=== PATIENT | female | born 1965 | race Caucasian/White ===

== ENCOUNTER 2019-12-10 11:48 | Outpatient (CLI) | payer MEDICARE, BC, SELFPAY ==
--- NOTE | 2019-12-10 | XR_ITS ---
WS: [id number] CERVICAL SPINE 5 VIEWS HISTORY: CERVICALGIA COMPARISON: None available. TECHNIQUE: AP, oblique and lateral radiographs. Straightening of the normal cervical lordosis. Anterior cervical fusion at C4-5. Disc space is well p reserved. Mild disc space narrowing at C5-6. No fractures. Very mild narrowing of the foramina on the LEFT at C4-5 and C5-6. Odontoid is intact. Lateral masses are aligned. XR/XR cervical spine 4-5V [id number] IMPRESSION: Uncomplicated anterior cervical fusion hardware at C4-5. Mild degenerative disc disease at C5-6.
== END 2019-12-10 11:49 | disposition home or self-care (01) ==
LOC: RAD 11:55
PROVIDERS: PCP Nurse Practitioner; Visit Provider Nurse Practitioner
DX: M43.22 Fusion of spine, cervical region (principal); M50.322 Other cervical disc degeneration at C5-C6 level
CPT/HCPCS: 72050

== ENCOUNTER 2020-01-28 08:33 | Outpatient (CLI) | payer MEDICARE, BC, SELFPAY ==
--- NOTE | 2020-01-28 08:41 | MM_ITS ---
WS: [id number] Bilateral screening digital mammogram, 01/28/2020 Clinical Data: SCREENING Comparison: 10/10/2017, 07/06/2016, Findings: The breast parenchymal pattern shows fat replacement. No spiculated masses or clustered calcification s are seen. There are no secondary signs of carcinoma. MM/[place] [id number] Impression: 1. Negative bilateral mammogram unchanged. 2. Recommend annual screening mammograms. BIRADS: 1-Negative FOLLOW UP: 1 Year Follow-up The CAD packing checker was used.
== END 2020-01-28 08:34 | disposition home or self-care (01) ==
LOC: RADSHAW 08:40
PROVIDERS: PCP Nurse Practitioner; Visit Provider Nurse Practitioner
DX: Z12.31 Encounter for screening mammogram for malignant neoplasm of breast (principal)
CPT/HCPCS: 77067

== ENCOUNTER 2020-06-08 10:24 | Outpatient (CLI) | payer MEDICARE, BC, SELFPAY ==
--- NOTE | 2020-06-08 10:44 | US_ITS ---
WS: [id number] Complete ABDOMINAL ULTRASOUND HISTORY: LEFT UPPER QUADRANT PAIN COMPARISON: None available. Liver: 15.1 cm in length. Liver is normal size and echogenicity with no mass or intrahepatic dilatati on. Gallbladder: Prior cholecystectomy. Pancreas: Normal size and echogenicity. CBD: 0.2 cm. Right kidney: 9.3 cm x 4.2 cm x 3.7 cm. Normal size kidney. No hydronephrosis or cystic mass. Exophy tic hypoechoic mass from the lower pole measuring 1.9 x 2.0 x 1.3 cm. Left kidney: 9.5 cm x 3.8 cm x 4.4 cm. No mass, cortical thickening or hydronephrosis. Spleen: Normal size and echogenicity. Abdominal aorta and IVC are within normal limits. No ascites. US/US abdomen complete* [id number] IMPRESSION: 1. Prior cholecystectomy. 2. Indeterminate solid mass lower pole RIGHT kidney with a maximum diameter of 2.0 cm. Recommend follow-up renal mass CT protocol.
--- NOTE | 2020-06-08 11:23 | XR_ITS ---
WS: [id number] LEFT SHOULDER: 3 VIEW(S) TECHNIQUE: Internal and external rotation with Y view. HISTORY: LEFT SHOULDER PAIN COMPARISON: None available. No fracture or dislocation or soft tissue abnormality. Mild AC joint narrowing and arthritis. XR/XR shoulder LT min 2V* [id number] IMPRESSION: Mild AC joint arthritis.
--- NOTE | 2020-06-08 11:23 | XR_ITS ---
WS: [id number] LEFT RIBS, MULTIPLE VIEWS WITH PA CHEST HISTORY: LEFT SIDED CHEST PAIN COMPARISON: None available. Lungs and mediastinum: Lungs are clear and well aerated. No contusion, pneumonia or pneumothorax. Ribs: No rib fractures or bone destruction identified. XR/XR ribs LT mn 3V w CXR1V [id number] IMPRESSION: No rib fractures are identified.
== END 2020-06-08 10:25 | disposition home or self-care (01) ==
LOC: RAD 10:29
PROVIDERS: PCP Nurse Practitioner; Visit Provider Nurse Practitioner
DX: R10.12 Left upper quadrant pain (principal); R07.89 Other chest pain; Z68.29 Body mass index [BMI] 29.0-29.9, adult; M13.812 Other specified arthritis, left shoulder; Z90.49 Acquired absence of other specified parts of digestive tract; N28.89 Other specified disorders of kidney and ureter
CPT/HCPCS: 71101; 73030; 76700

== ENCOUNTER 2020-06-22 13:24 | Outpatient (CLI) | payer MEDICARE, BC, SELFPAY ==
--- NOTE | 2020-06-22 13:32 | CT_ITS ---
WS: [id number] CT ABDOMEN PELVIS TECHNIQUE: Contrast-enhanced CT of the abdomen and pelvis with coronal and sagittal reformatted image s. CLINICAL INFORMATION: OTHER SPECIFIED DISORDERS OF KIDNEY AND URETER COMPARISON: Ultrasound June 08, 2020 DLP: 1102.[address] scans at [facility] use at least one of these dose optimization techniques: automat ed exposure control; mA and/or kV adjustment per patient size (includes targeted exams where dose is matched to clinical indication); or iterative reconstruction. FINDINGS: Diffuse fatty infiltration of the liver. Cholecystectomy clips. Postoperative changes gastric bypass. No significant hiatal hernia. Lung bases are well aerated. Adrenal glands are normal. Normal renal p arenchymal enhancement. No hydronephrosis. Incidental tiny bilateral renal cysts. No mass lesion mynor esponding to the right renal findings on recent ultrasound. Normal caliber abdominal aorta. Aortic calcification. Normal caliber small and large bowel. No evide nce of high-grade small or large bowel obstruction. Normal appendix in right lower quadrant. Normal r enal parenchymal enhancement. Normal caliber abdominal aorta. No free fluid in the pelvis. Fat-contai juhi umbilical hernia. CT/CT abdomen pelvis w con* [id number] IMPRESSION: 1. Diffuse fatty infiltration of the liver. Cholecystectomy clips. 2. Tiny incidental bilateral renal cysts. No evidence of renal mass to corresp ond to the ultrasound findings. 3. Normal renal parenchymal enhancement. No hydronephrosis. 4. Prior postoperative gastric bypass. 5. Normal caliber abdominal aorta. 6. No evidence of small or large bowel obstruction. 7. No free fluid in the abdomen or pelvis. 8. No other significant findings.
[2020-06-22] MEDS: iohexol 300 mg/mL 100 mL Btl IV (14:02)
== END 2020-06-22 13:25 | disposition home or self-care (01) ==
LOC: RADWPI 13:30
PROVIDERS: PCP Nurse Practitioner; Visit Provider Nurse Practitioner
DX: N28.89 Other specified disorders of kidney and ureter (principal); Z98.84 Bariatric surgery status; N28.1 Cyst of kidney, acquired; K76.0 Fatty (change of) liver, not elsewhere classified
CPT/HCPCS: 74177; Q9967

== ENCOUNTER 2020-12-02 10:35 | Emergency (ER) | payer MEDICARE, SELFPAY ==
[2020-12-02 11:03] VITALS: BP 126/85; PULSE 76; RESP 15; TEMP 36.2; O2SAT 99; BMI 29.7
--- NOTE | 2020-12-02 11:07 | XRR_ITS ---
PROCEDURE INFORMATION: Exam: XR Right Foot Exam date and time: 12/02/2020 11:08 AM Age: 55 years old Clinical indication: Pain and injury or trauma; Other: Dog ran over her; Blunt trauma; Foot; Right; Additional info: Pain, injury TECHNIQUE: Imaging protocol: XR Right foot. Views: 3 or more views. COMPARISON: No relevant prior studies available. FINDINGS: Bones/joints: There are multiple fractures. There is a transverse fracture through the base of the 2nd metatarsal bone. A comminuted fracture is present through the proximal 3rd metatarsal bone. There is an oblique comminuted fracture through the distal neck of the 4th metatarsal bone which is displaced laterally by about 6 mm. Soft tissues: Normal. XR/XR foot RT min 3V* [id number] IMPRESSION: Multiple fractures of the base of the 3rd and 4th metatarsal bones and distal neck of the 4th metatarsal bone.
--- NOTE | 2020-12-02 11:21 | ED_ITS ---
HPI - Extremity Problem General: Chief complaint: Extremity Injury, Lower Stated complaint: RIGHT FOOT PAIN Time Seen by Provider: 12/02/20 11:06 History of Present Illness: HPI Narrative: Patient states she was walking down a hill this morning and large dogs hit her from behind and that she felt pain to her right foot she is not sure what happened but she is unable to bear weight now on right foot MD Complaint: extremity pain Onset (ago): minute(s) Pain Consistency: constant Location: right and lower extremity Severity scale (1-10): 10 Quality: aching Relieving factors: immobilization Exacerbating factors: weight bearing Associated symptoms: Reports no associated symptoms; Deny chest pain, fever(s) or rash Review of Systems Const: Denies: fever(s), chills or body aches Eyes: Denies: change in vision or blurry vision ENMT: Denies: throat pain or nasal congestion Card: Denies: chest pain or dyspnea on exertion Resp: Denies: dyspnea, productive cough or non-productive cough GI: Denies: abdominal pain, nausea or vomiting Musc: Reports: extremity pain (Right foot) Skin/Breast: Denies: rash Neuro: Denies: headache(s) Psych: Denies: anxiety or depression Miguel/Lymph: Denies: easy bruising Physical Exam Const: COMMON NORMALS: no acute distress, average body habitus and patient oriented x3 HENMT: COMMON NORMALS: normocephalic HEAD & SCALP: normal to inspection and normocephalic FACE & SINUS: normal facial exam Eye: COMMON NORMALS: conjunctivae normal GENERAL EYE: appearance normal, both eyes and all related structures CONJUNCTIVA: Yes conjunctivae normal Neck/C-Spine: COMMON NORMALS: no JVD Chest: COMMONS NORMALS: normal inspection of the chest Resp: COMMON NORMALS: normal respiratory effort and clear to auscultation bilaterally AUSCULTATION: clear to auscultation bilaterally Cardio: COMMON NORMALS: no JVD, regular rate and regular rhythm RATE: regular rate RHYTHM: regular rhythm GI: COMMON NORMALS: Normal to inspection, nondistended, normoactive bowel sounds present Extremity: RIGHT LOWER EXTREMITY: Yes foot & digits (Painful throughout the foot specially on the arch and the forefoot midsecti) Neuro: COMMON NORMALS: patient oriented x3 Course Vital Signs: Vital signs: Vital Signs Temperature 97.1 F L 12/02/20 11:03 Pulse Rate 76 12/02/20 11:03 Respiratory Rate 15 12/02/20 11:03 Blood Pressure 126/85 12/02/20 11:03 Pulse Oximetry 99 12/02/20 11:03 MDM - Extremity (Nontraumatic) MDM Narrative: Medical decision making narrative: I spoke with Dr. Josue via the phone and reviewed x-ray with him as he looks to x-ray. Discussed treatment. He said that most likely Dr. Funes would take care of this. Dr. uFnes is not on-call today I reviewed the board after talk with Dr. Josue spoke with Dr. Mcgowan who recommend we go ahead and make follow-up ointment Dr. Josue who can transfer patient over Dr. Funes if he feels that is appropriate. Patient was instructed to follow-up with Dr. Josue's office wear splint use crutches take pain medication as directed. Nonweightbearing.. Coding Level of Care Code ED Wellness Instructor for Zoey Faust Exam Comprehensive
[2020-12-02] MEDS: HYDROcodone-acetaminophen 5-325 mg Tablet 1 TAB PO (11:37)
[2020-12-02 12:06] VITALS: RESP 15
--- NOTE | 2020-12-02 13:56 | DCPLANNER ---
utility manager had message to schedule a follow up appointment for patient with ortho for a foot fracture. utility manager called the ortho clinic, spoke with Mady, gave clinic patients information. utility manager was told that patients information would be printed and reviewed. Clinic will call patient with appointment information.
--- NOTE | 2020-12-03 14:48 | DCPLANNER ---
Patient has a follow up appointment scheduled for 12.08.[address] Miranda at ortho. Clinic will call patient with appointment information.
--- NOTE | 2020-12-30 16:55 | DCPLANNER ---
Patient had a follow up appointment scheduled for 12.08.20 with ortho - patient did attend appointment.
== END 2020-12-02 12:37 | disposition home or self-care (01) ==
PROVIDERS: Emergency Provider Nurse Practitioner Family; PCP Nurse Practitioner
DX: M79.671 Pain in right foot (principal)
CPT/HCPCS: 29515; 73630; 99283; E0114

== ENCOUNTER 2020-12-08 14:58 | Outpatient (CLI) | payer MEDICARE, BC, SELFPAY | END 2020-12-08 14:59 | disposition home or self-care (01) | LOC: SPT 15:00 | PROVIDERS: PCP Nurse Practitioner; Visit Provider Podiatrist Foot & Ankle Surgery | DX: Z46.89 Encounter for fitting and adjustment of other specified devices (principal); T07.XXXD Unspecified multiple injuries, subsequent encounter; X58.XXXD Exposure to other specified factors, subsequent encounter | CPT/HCPCS: 73630; L4361 ==

== ENCOUNTER → 2020-12-23 14:17 | Outpatient (BNVA) | payer MEDICARE, BC, SELFPAY | PROVIDERS: PCP Nurse Practitioner; Visit Provider Podiatrist Foot & Ankle Surgery | DX: S92.334D Nondisplaced fracture of third metatarsal bone, right foot, subsequent encounter for fracture with routine healing (principal); S92.342D Displaced fracture of fourth metatarsal bone, left foot, subsequent encounter for fracture with routine healing; S92.324D Nondisplaced fracture of second metatarsal bone, right foot, subsequent encounter for fracture with routine healing; S92.301D Fracture of unspecified metatarsal bone(s), right foot, subsequent encounter for fracture with routine healing; S92.341D Displaced fracture of fourth metatarsal bone, right foot, subsequent encounter for fracture with routine healing | CPT/HCPCS: 73630 ==

== ENCOUNTER → 2021-01-10 11:07 | Outpatient (BNVA) | payer MEDICARE, BC, SELFPAY | PROVIDERS: PCP Nurse Practitioner; Visit Provider Podiatrist Foot & Ankle Surgery | DX: M79.673 Pain in unspecified foot (principal); S92.301D Fracture of unspecified metatarsal bone(s), right foot, subsequent encounter for fracture with routine healing; S92.324D Nondisplaced fracture of second metatarsal bone, right foot, subsequent encounter for fracture with routine healing; S92.334D Nondisplaced fracture of third metatarsal bone, right foot, subsequent encounter for fracture with routine healing; S92.341D Displaced fracture of fourth metatarsal bone, right foot, subsequent encounter for fracture with routine healing; X58.XXXD Exposure to other specified factors, subsequent encounter | CPT/HCPCS: 73630 ==

== ENCOUNTER → 2021-02-03 09:43 | Outpatient (BNVA) | payer MEDICARE, BC, SELFPAY | PROVIDERS: PCP Nurse Practitioner; Visit Provider Podiatrist Foot & Ankle Surgery | DX: S92.334D Nondisplaced fracture of third metatarsal bone, right foot, subsequent encounter for fracture with routine healing (principal); S92.324D Nondisplaced fracture of second metatarsal bone, right foot, subsequent encounter for fracture with routine healing; S92.301D Fracture of unspecified metatarsal bone(s), right foot, subsequent encounter for fracture with routine healing; M79.673 Pain in unspecified foot; S92.341D Displaced fracture of fourth metatarsal bone, right foot, subsequent encounter for fracture with routine healing; X58.XXXD Exposure to other specified factors, subsequent encounter | CPT/HCPCS: 73630 ==

== ENCOUNTER → 2021-03-02 09:00 | Outpatient (BNVA) | payer MEDICARE, BC, SELFPAY | PROVIDERS: PCP Nurse Practitioner; Visit Provider Podiatrist Foot & Ankle Surgery | DX: S92.334D Nondisplaced fracture of third metatarsal bone, right foot, subsequent encounter for fracture with routine healing (principal); S92.324D Nondisplaced fracture of second metatarsal bone, right foot, subsequent encounter for fracture with routine healing; S92.301D Fracture of unspecified metatarsal bone(s), right foot, subsequent encounter for fracture with routine healing; S92.341D Displaced fracture of fourth metatarsal bone, right foot, subsequent encounter for fracture with routine healing; X58.XXXD Exposure to other specified factors, subsequent encounter | CPT/HCPCS: 73630 ==

== ENCOUNTER 2021-08-30 16:33 | Emergency (ER) | payer MEDICARE, BC, SELFPAY ==
[2021-08-30 16:46] VITALS: BMI 24.9
[2021-08-30 16:50] VITALS: BP 123/78; PULSE 73; RESP 14; TEMP 36.5; O2SAT 99
--- NOTE | 2021-08-30 17:19 | XRR_ITS ---
PROCEDURE INFORMATION: Exam: XR Right Foot Exam date and time: 08/30/2021 5:19 PM Age: 56 years old Clinical indication: Injury or trauma; Other: Horse stepped on foot; Crushing; Right; Additional info: Injury, crush TECHNIQUE: Imaging protocol: XR Right foot. Views: 3 or more views. COMPARISON: CR XR foot RT min 3V* [id number] 03/02/2021 9:07 AM FINDINGS: Bones/joints: Normal. Soft tissues: Normal. XR/XR foot RT min 3V* [id number] IMPRESSION: No acute findings.
--- NOTE | 2021-08-30 17:41 | W.ED.EXTPRO ---
HPI - Extremity Problem General: Chief complaint: Extremity Injury, Lower Stated complaint: Rt Foot injury horse stepped on it Time Seen by Provider: 08/30/21 17:40 History of Present Illness: A 56-year-old female comes in with injury to the right foot. Patient reports that she was working with her horse and that stepped on the lateral part of her right foot and middle toe. Patient does have a history of previous fracture to the foot. Patient appears well. Patient reports tetanus is up-to-date. Patient is concerned for fracture of the foot. Patient did have a small abrasion to the toe. Complaint: extremity pain Onset (ago): hour(s) Pain Consistency: constant Location: right and lower extremity (Right foot) Quality: aching Relieving factors: rest Exacerbating factors: weight bearing Associated symptoms: Reports no associated symptoms Review of Systems General: Reports: 10 or more systems reviewed and unremarkable except in HPI and below Musc: Reports: extremity pain (Right foot injury) REPLACED BY [facility] ED PFSH: Medical History Depression Insomnia Seizures Social History Smoking and tobacco status: former smoker Quit status (tobacco): has quit using tobacco Second hand smoke exposure: No Smoking risk assessment/counseling performed?: Yes Alcohol intake: current Alcohol intake frequency: 0-2 Drinks per Day Alcohol type: wine Desire information about alcohol rehabilitation?: No Counseling given: Yes Desire information about substance/drug rehabilitation?: No Counseling given: Yes Physical Exam Const: COMMON NORMALS: alert HENMT: COMMON NORMALS: atraumatic HEAD & SCALP: atraumatic Neck/C-Spine: COMMON NORMALS: full ROM Resp: COMMON NORMALS: normal respiratory effort Cardio: COMMON NORMALS: regular rate and regular rhythm RATE: regular rate RHYTHM: regular rhythm Extremity: RIGHT LOWER EXTREMITY: Yes foot & digits (Swelling noted to the fifth digit with ecchymosis and a small abrasion) Right foot and digits: Yes inspection, Yes palpation, Yes ROM, Yes neurovascular exam and Yes tendon exam Neuro: SENSORIUM/ORIENTATION: Yes alert Psych: COMMON NORMALS: cooperative Skin: WOUNDS: Yes wounds noted (Superficial abrasion right little toe) Course Vital Signs: Vital signs: Vital Signs Temperature 97.7 F 02/15/22 16:50 Pulse Rate 73 08/30/21 16:50 Respiratory Rate 14 08/30/21 16:50 Blood Pressure 123/78 08/30/21 16:50 Pulse Oximetry 99 08/30/21 16:50 MDM - Extremity (Nontraumatic) Medical Decision Making 56-year-old female comes with injury to the foot. On exam patient has some swelling and ecchymosis to the right fifth digit and lateral foot. There is a superficial abrasion to the right little toe. Patient has good range of motion of the foot and toe. Pulses are intact. Differential diagnosis includes fracture, contusion, sprain. X-ray noted no fractures per radiologist. Reviewed exam of contusion of the foot. Patient was recommended to elevate foot, use acetaminophen or ibuprofen to control pain, use hydrocodone for breakthrough pain. Patient's foot was placed in elastic bandage and a postop orthopedic shoe for support and comfort. Follow up with primary care or orthopedist of choice. Patient reported understanding agreed to plan. Lab Data Radiology Impressions Foot X-Ray 08/30/21 17:19 IMPRESSION: No acute findings. Discharge Plan Discharge Patient Disposition: Home Clinical Impression: Contusion of foot including toes Qualifiers: Encounter type: initial encounter Laterality: right Qualified Code(s): S90.31XA - Contusion of right foot, initial encounter Condition: Stable Prescriptions: Continued hydrocodone-acetaminophen 5-325 mg tablet 1 tab PO Q6H PRN (Reason: pain) 3 Days Qty: 10 0RF No Action topiramate [Topamax] 50 mg tablet 50 mg PO BID 0RF zolpidem 10 mg tablet PO 0RF bupropion HCl [Wellbutrin SR] 100 mg tablet sustained-release 12 hr 100 mg PO DAILY 0RF naproxen 500 mg tablet 500 mg PO BID 30 Days Qty: 60 0RF meloxicam 15 mg tablet See Rx Instructions .ROUTE .COMPLEX Qty: 30 1RF Dose Instruction: TAKE 1 TABLET BY MOUTH EVERY DAY Rx Instructions: TAKE 1 TABLET BY MOUTH EVERY DAY Discharge Orders: Discharge ED (Routine); Ordered 08/30/21 Ordered By: Lukas Shen Referrals: Shanae Guerrero NP [Primary Care Provider] - Discharge Diet: Usual diet Discharge Activity: Increase activity as tolerated Patient Instructions: Foot Contusion (ED), Opioid Safety Activity Restrictions/Additional Instructions: Elevate foot. Ice to the area to help with pain. Wear an elastic bandage to help prevent increased swelling and for comfort. Use a good supportive shoe or the postop shoe for further foot support. Drink plenty of water with medication. Use acetaminophen ibuprofen to control pain. Use hydrocodone for breakthrough pain. Follow-up with primary care for further evaluation and treatment as needed. Coding Level of Care Code ED Office Assistant Receptionist for Chg Fwd History Problem Focused Exam Problem Focused Medical Decision Making Low Complexity Time Spent (min) 20
== END 2021-08-30 18:52 | disposition home or self-care (01) ==
PROVIDERS: Emergency Provider Nurse Practitioner Family; PCP Nurse Practitioner
DX: S90.31XA Contusion of right foot, initial encounter (principal); Z87.891 Personal history of nicotine dependence; W55.19XA Other contact with horse, initial encounter
CPT/HCPCS: 73630; 99282; 99291; 99292

== ENCOUNTER → 2021-09-13 10:10 | Outpatient (BNVA) | payer MEDICARE, BC, SELFPAY | PROVIDERS: PCP Nurse Practitioner; Visit Provider Podiatrist Foot & Ankle Surgery | DX: M79.671 Pain in right foot (principal) | CPT/HCPCS: 73630 ==

== ENCOUNTER 2021-11-30 09:10 | Outpatient (CLI) | payer MEDICARE, BC, SELFPAY ==
--- NOTE | 2021-11-30 09:20 | MM_ITS ---
WS: [id number] Bilateral screening 3D tomosynthesis digital mammogram, 11/30/2021 Clinical Data: SCREENING Comparison: 01/28/2020, 10/10/2017, 07/10/2016. Findings: The breast parenchymal pattern shows fat replacement. No spiculated masses or clustered calcification s are seen. There are no secondary signs of carcinoma. MM/[place] [id number] Impression: 1. Negative bilateral mammogram unchanged. 2. Recommend annual screening mammograms. BIRADS: 1-Negative FOLLOW UP: 1 Year Follow-up The CAD order checker was used.
== END 2021-11-30 09:11 | disposition home or self-care (01) ==
LOC: RAD 09:14
PROVIDERS: PCP Nurse Practitioner; Visit Provider Nurse Practitioner
DX: Z12.31 Encounter for screening mammogram for malignant neoplasm of breast (principal)
CPT/HCPCS: 77063; 77067

== ENCOUNTER 2021-11-30 09:22 | Outpatient (CLI) | payer MEDICARE, BC, SELFPAY ==
--- NOTE | 2021-11-30 10:00 | US_ITS ---
WS: [id number] THYROID ULTRASOUND HISTORY: ENLARGED LYMPH NODES COMPARISON: None available. Right lobe: 1.2 cm x 1.5 cm x 4.0 cm (w x ap x l). Volume: 3.6 cm3. Normal size and echotexture. No significant are dominant nodules are present. Left lobe: 1.0 cm x 1.3 cm x 3.4 cm (w x ap x l). Volume: 2.4 cm3. Normal size and echotexture. No significant or dominant nodules are present. Isthmus: 0.2 cm. Palpable nodule in the LEFT neck corresponds to a benign-appearing lymph node measuring 5 x 4 x 5 mm. There are several small but benign-appearing lymph nodes along the LEFT cervical chain. US/US thyroid [id number] IMPRESSION: Normal thyroid ultrasound. Palpable nodule in the LEFT neck corresponds to benign-appearing lymph nodes.
== END 2021-11-30 09:23 | disposition home or self-care (01) ==
LOC: RAD 09:28
PROVIDERS: PCP Nurse Practitioner; Visit Provider Nurse Practitioner
DX: R59.9 Enlarged lymph nodes, unspecified (principal)
CPT/HCPCS: 76536

== ENCOUNTER 2022-05-17 11:10 | Emergency (ER) | payer MEDICARE, BC, SELFPAY ==
[2022-05-17] VITALS (7 sets, daily range): BP systolic 91–127; BP diastolic 56–79; PULSE 62–68; RESP 16–20; TEMP 36.8; O2SAT 99–100; BMI 23.6
--- NOTE | 2022-05-17 11:41 | CT_ITS ---
WS: [id number] CT THORACIC SPINE TECHNIQUE: Noncontrast CT of the thoracic spine with coronal and sagittal reformatted images. CLINICAL INFORMATION: Bucked off horse-mid back pain COMPARISON: None. DLP: 379.[address] scans at [facility] use at least one of these dose optimization techniques: automated e xposure control; mA and/or kV adjustment per patient size (includes targeted exams where dose is matc hed to clinical indication); or iterative reconstruction. FINDINGS:Slightly displaced spinous process fractures at T4-T8. No other visualized fractures. Mild thoracic curve. Mild thoracic kyphosis. No acute compression fractures. Mild hypertrophic change s in the mid thoracic spine. No high-grade central canal narrowing. Visualized lungs are well aerated. CT/CT thoracic spin wo con* [id number] IMPRESSION: Slightly displaced spinous process fractures at T4-T8. No other visualized frac tures. Notified LALA Menendez at 05/17/2022 1:30 PM.
--- NOTE | 2022-05-17 11:41 | XRR_ITS ---
PROCEDURE INFORMATION: Exam: XR Chest Exam date and time: 05/17/2022 11:47 AM Age: 57 years old Clinical indication: Injury or trauma; Blunt trauma (contusions or hematomas); Injury date: 05/17/22; Injury details: Bucked off horse. RT hip and lower back pain TECHNIQUE: Imaging protocol: Radiologic exam of the chest. Views: 1 view. Total images: 2 COMPARISON: CR XR ribs LT mn 3V w CXR1V [id number] 06/08/2020 11:50 AM FINDINGS: Lungs: Unremarkable. No consolidation. Pleural spaces: Unremarkable. No pleural effusion. No pneumothorax. Heart/Mediastinum: Unremarkable. No cardiomegaly. Bones/joints: Osseous structures are unchanged from the prior exam. XR/XR chest 1V portable [id number] IMPRESSION: No acute cardiopulmonary process.
--- NOTE | 2022-05-17 11:41 | XRR_ITS ---
PROCEDURE INFORMATION: Exam: XR Right Hip Exam date and time: 05/17/2022 11:48 AM Age: 57 years old Clinical indication: Injury or trauma; Other: Bucked off horse; Blunt trauma (contusions or hematomas); Right; Hip; Additional info: Bucked off horse with right hip pain TECHNIQUE: Imaging protocol: Radiologic exam of the Right hip. Views: 1 view hip with pelvis when performed. Total images: 1 COMPARISON: CT abdomen pelvis w con* [id number] 06/22/2020 1:59 PM FINDINGS: Bones/joints: Unremarkable. No acute fracture. Soft tissues: Unremarkable. XR/XR hip RT 2-3V wo/w pel* [id number] IMPRESSION: No acute findings.
--- NOTE | 2022-05-17 11:41 | CT_ITS ---
WS: [id number] CT HEAD TECHNIQUE: Noncontrast CT of the head obtained from the skullbase to the vertex. CLINICAL INFORMATION: Bucked off horse and hit head-positive LOC COMPARISON: None. DLP: 1230.[address] scans at [facility] use at least one of these dose optimization techniques: automated e xposure control; mA and/or kV adjustment per patient size (includes targeted exams where dose is matc hed to clinical indication); or iterative reconstruction. FINDINGS: No evidence of intracranial hemorrhage or mass effect. Ventricular system and basal cisterns are anderson nt. No extra-axial fluid collections. No evidence of mass or mass effect. Normal chang-white different iation. Paranasal sinuses and mastoid air cells are well aerated. .Normal visualized soft tissues. CT/CT head wo con* [id number] IMPRESSION: 1. No evidence of intracranial hemorrhage or mass effect. 2. No acute intracranial findings.
--- NOTE | 2022-05-17 11:41 | CT_ITS ---
WS: [id number] CT CERVICAL TRAUMA TECHNIQUE: Noncontrast CT of the cervical spine with coronal and sagittal reformatted images. CLINICAL INFORMATION: Bucked off horse-lower cervical spine pain COMPARISON: None. DLP: 1230.[address] scans at [facility] use at least one of these dose optimization techniques: automated e xposure control; mA and/or kV adjustment per patient size (includes targeted exams where dose is matc hed to clinical indication); or iterative reconstruction. FINDINGS: Straightening of the normal cervical lordosis. Prior postoperative changes ACDF C4-C5. Normal cranioc ervical junction. Normal C1-C2 articulation. Dens is normal in appearance. Normal occipital condyles. No high-grade spinal canal narrowing. Normal C1 ring. No evidence of acute fracture or dislocation. Normal prevertebral soft tissues. Mastoids air cells are well aerated. CT/CT cervical spin wo con* [id number] IMPRESSION: No evidence of acute fracture or dislocation.
--- NOTE | 2022-05-17 11:42 | W.ED.BACK ---
Documented by User: LALA Menendez 05/18/22 14:58 HPI - Back Pain/Injury General: Chief Complaint: Back Pain/Injury Stated Complaint: bucked off horse, back pain, head pain Time Seen by Provider: 05/17/22 11:35 History of Present Illness: Patient is a 57-year-old female who comes to the ED with head injury. Patient was riding a horse this morning and was bucked off. She landed on the gravel and hit back of head. Endorses loss of consciousness for no longer than a minute. She feels a little woozy and describes having a headache. Denies any nausea or emesis. Since fall injury she is having right hip pain and mid back pain. The mid to upper back pain is rated a 7 out of 10. She states that her headache is more mild to moderate headache. Denies any vision changes, numbness or tingling or weakness to 1 side of face or body. Associated symptoms: Deny abdominal pain, chills, dysuria, fatigue, fever(s), hematuria, nausea or vomiting Review of Systems Const: Denies: fever(s), chills or fatigue Eyes: Denies: change in vision or eye discomfort ENMT: Denies: throat pain, odynophagia, nasal discharge or nasal congestion Card: Denies: chest pain, palpitations, edema, swelling of feet/ankles, dyspnea on exertion or orthopnea Resp: Denies: dyspnea, productive cough or non-productive cough GI: Denies: abdominal pain, nausea, vomiting, diarrhea, constipation or hematochezia : Denies: flank pain, dysuria or hematuria Musc: Reports: neck pain and back pain; Denies: extremity swelling Skin/Breast: Denies: rash or new lesions Neuro: Reports: headache(s); Denies: numbness in extremities or weakness in extremities PFSH ED PFSH: Medical History Depression Insomnia Seizures Social History Smoking and tobacco status: former smoker (30 years) Quit status (tobacco): has quit using tobacco Second hand smoke exposure: No Smoking risk assessment/counseling performed?: Yes Alcohol intake: current Alcohol intake frequency: 0-2 Drinks per Day Alcohol type: wine Desire information about alcohol rehabilitation?: No Counseling given: Yes Desire information about substance/drug rehabilitation?: No Counseling given: Yes Physical Exam Const: COMMON NORMALS: no acute distress, patient oriented x3, healthy appearing and alert GENERAL APPEARANCE: cooperative and comfortable HENMT: COMMON NORMALS: normocephalic HEAD & SCALP: normocephalic MOUTH: Normal oral and palatal mucosa present THROAT: posterior oropharynx normal and uvula midline Eye: COMMON NORMALS: Equal, round and reactive pupils present and EOMs intact bilaterally GENERAL EYE: appearance normal, both eyes and all related structures PUPIL: Yes Equal, round and reactive pupils present Neck/C-Spine: COMMON NORMALS: supple GENERAL: Yes normal visual inspection CERVICAL SPINE: Yes cervical ROM normal, Yes Cervical spine tenderness C7 and T1, No Paracervical muscle tenderness and No Trapezius muscle tenderness Lymph: LYMPHATIC: no lymphadenopathy noted Resp: COMMON NORMALS: normal respiratory effort, No retractions, No use of accessory muscles and clear to auscultation bilaterally AUSCULTATION: clear to auscultation bilaterally Cardio: COMMON NORMALS: regular rate, regular rhythm, S1 normal heart sound present, S2 normal heart sound present, No gallops present (Cardio), No clicks present (Cardio), No murmurs present (Cardio) and Peripheral pulses 2+ throughout RATE: regular rate RHYTHM: regular rhythm HEART SOUNDS: S1 normal heart sound present and S2 normal heart sound present PERIPHERAL PULSES: Peripheral pulses 2+ throughout GI: COMMON NORMALS: Normal to inspection, nondistended, normoactive bowel sounds present, Soft to palpation, non-tender and no masses PALPATION: Yes Soft to palpation : COMMON NORMALS: Yes no CVA tenderness BLADDER/KIDNEY EXAM: Yes no CVA tenderness Back/Pelvis: COMMON NORMALS: no CVA tenderness THORACIC SPINE/UPPER BACK: Yes pain with ROM, Yes thoracic spinal tenderness T-spine tenderness location: T1, T2, T3 and T4 and Yes paraspinal muscle tenderness Thoracic paraspinal muscle tenderness: bilateral LUMBAR SPINE/LOWER BACK: No lumbar spinal tenderness and No paraspinal muscle tenderness Extremity: GENERAL: Yes normal exam except as noted Neuro: COMMON NORMALS: patient oriented x3, CN's II-XII intact bilaterally, moves all extremities, no focal motor deficits and no sensory deficits noted SENSORIUM/ORIENTATION: Yes alert SENSORY EXAM: Yes extremities (intact) MOTOR EXAM: 5/5 motor strength present throughout Skin: COMMON NORMALS: no rashes or lesions noted GENERAL SKIN EXAM: no rashes or lesions noted and dry skin Course Vital Signs: Vital signs: Vital Signs Temperature 98.3 F 05/17/22 11:17 Pulse Rate 62 05/17/22 15:13 Respiratory Rate 20 H 05/17/22 15:13 Blood Pressure 91/56 05/17/22 15:13 Pulse Oximetry 99 05/17/22 15:13 Oxygen Delivery Me thod 05/17/22 14:41 MDM - Back Pain/Injury Medical Decision Making Patient is a 57-year-old female who comes to the ED with head injury. Patient was riding a horse this morning and was bucked off. She landed on the gravel and hit back of head. Endorses loss of consciousness for no longer than a minute. She feels a little woozy and describes having a headache. She is complaining of some lower neck/mid back pain and a headache. Vitals are stable. Neuro exam shows no deficits. Patient does have some lower cervical spinal tenderness and thoracic spinal tenderness. Rest of exam is benign. Head CT showed no acute findings. Cervical spine CT showed no acute fractures or dislocations. Hip x-ray showed no acute findings. Chest x-ray was normal. Thoracic spine CT showed slightly displaced spinous process fractures at T4-T8. No other visualized fractures seen. Patient was placed in a TLSO brace here in the ED and I put an order in with case management for her to be referred to Dr. Fontana for follow-up. She was diagnosed with fracture of spinous process of thoracic vertebrae and a minor head injury with loss of consciousness. Patient was sent home with a prescription for some Percocet to help with pain. Return ED precautions given. Patient understood and agreed with plan. Labs Radiology Impressions Cervical Spine CT 05/17/22 11:41 IMPRESSION: No evidence of acute fracture or dislocation. Chest X-Ray 05/17/22 11:41 IMPRESSION: No acute cardiopulmonary process. Head CT 05/17/22 11:41 IMPRESSION: 1. No evidence of intracranial hemorrhage or mass effect. 2. No acute intracranial findings. Hip/Pelvis X-Ray 05/17/22 11:41 IMPRESSION: No acute findings. Thoracic Spine CT 05/17/22 11:41 IMPRESSION: Slightly displaced spinous process fractures at T4-T8. No other visualized fractures. Notified LALA Menendez at 05/17/2022 1:30 PM. Discharge Plan Discharge Patient Disposition: Home Clinical Impression: Fracture of spinous process of thoracic vertebra Qualifiers: Encounter type: initial encounter Fracture type: closed Qualified Code(s): S22.008A - Other fracture of unspecified thoracic vertebra, initial encounter for closed fracture Minor head injury with loss of consciousness Qualifiers: Encounter type: initial encounter Qualified Code(s): S06.9X9A - Unspecified intracranial injury with loss of consciousness of unspecified duration, initial encounter Condition: Stable Prescriptions: No Action topiramate [Topamax] 50 mg tablet 50 mg PO BID zolpidem 10 mg tablet 10 mg PO BEDTIME bupropion HCl [Wellbutrin SR] 100 mg tablet sustained-release 12 hr 100 mg PO DAILY ondansetron 8 mg tablet,disintegrating 8 mg PO Q8H PRN (Reason: nausea and vomiting) 5 Days Qty: 15 0RF methocarbamol 750 mg tablet 750 mg PO Q8H PRN (Reason: Back muscle pain and spasms) Qty: 30 0RF ibuprofen 800 mg tablet 800 mg PO Q8H PRN (Reason: pain) Qty: 30 0RF hydrocodone-acetaminophen 5-325 mg tablet 1 tab PO Q6H PRN (Reason: pain) 7 Days Qty: 30 0RF esomeprazole magnesium 40 mg capsule,delayed release(DR/EC) 40 mg PO BID Women's 50 Plus Multivitamin 400 mcg-500 mg calcium-20 mcg Tablet 1 tab PO DAILY Discharge Orders: Discharge ED (Routine); Ordered 05/17/22 Ordered By: Amado Ortiz Referrals: Shanae Guerrero NP [Primary Care Provider] - Discharge Diet: Regular Discharge Activity: Limit activity as instructed Patient Instructions: Head Injury (DC), Transverse Process Fracture (ED), Opioid Safety Activity Restrictions/Additional Instructions: Follow-up with medical provider as directed. Case management should be contacting you in the next several days set up appointment with Dr. Fontana for follow-up. Wear TLSO brace and limit lifting until cleared by Ortho. Take medications as prescribed. Return to the ER or your medical provider if condition worsens. Please read and understand discharge instructions. Thank you for choosing [facility] for your healthcare needs today. Please realize this is an emergency room and that we are providing you with a medical screening exam and this may not be complete and all inclusive of all the testing and or work up that you may need to determine your ailment or severity of your illness. It is very important that you follow up as instructed or that you return to the Emergency Department should you have concerns or if your condition changes or worsens in any way. Coding Level of Care Code ED Vinyl Installer for Chg Fwd Exam Comprehensive Documented by User: Rivera Drummond MD 05/23/22 10:40 HPI - Back Pain/Injury General: Chief Complaint: Back Pain/Injury Stated Complaint: bucked off horse, back pain, head pain Time Seen by Provider: 05/17/22 11:35 PFSH ED PFSH: Medical History Depression Insomnia Seizures Social History Smoking and tobacco status: former smoker (30 years) Quit status (tobacco): has quit using tobacco Second hand smoke exposure: No Smoking risk assessment/counseling performed?: Yes Alcohol intake: current Alcohol intake frequency: 0-2 Drinks per Day Alcohol type: wine Desire information about alcohol rehabilitation?: No Counseling given: Yes Desire information about substance/drug rehabilitation?: No Counseling given: Yes Course Vital Signs: Vital signs: Vital Signs Temperature 98.3 F 05/17/22 11:17 Pulse Rate 62 05/17/22 15:13 Respiratory Rate 20 H 05/17/22 15:13 Blood Pressure 91/56 05/17/22 15:13 Pulse Oximetry 99 05/17/22 15:13 Oxygen Delivery Me thod 05/17/22 14:41 MDM - Back Pain/Injury Medical Decision Making Patient is a 57-year-old female who comes to the ED with head injury. Patient was riding a horse this morning and was bucked off. She landed on the gravel and hit back of head. Endorses loss of consciousness for no longer than a minute. She feels a little woozy and describes having a headache. She is complaining of some lower neck/mid back pain and a headache. Vitals are stable. Neuro exam shows no deficits. Patient does have some lower cervical spinal tenderness and thoracic spinal tenderness. Rest of exam is benign. Head CT showed no acute findings. Cervical spine CT showed no acute fractures or dislocations. Hip x-ray showed no acute findings. Chest x-ray was normal. Thoracic spine CT showed slightly displaced spinous process fractures at T4-T8. No other visualized fractures seen. Patient was placed in a TLSO brace here in the ED and I put an order in with case management for her to be referred to Dr. Fontana for follow-up. She was diagnosed with fracture of spinous process of thoracic vertebrae and a minor head injury with loss of consciousness. Patient was sent home with a prescription for some Percocet to help with pain. Return ED precautions given. Patient understood and agreed with plan. I discussed this case with LALA Menendez. I have reviewed documentation. Rivera Drummond MD Emergency Medicine Labs Radiology Impressions Cervical Spine CT 05/17/22 11:41 IMPRESSION: No evidence of acute fracture or dislocation. Chest X-Ray 05/17/22 11:41 IMPRESSION: No acute cardiopulmonary process. Head CT 05/17/22 11:41 IMPRESSION: 1. No evidence of intracranial hemorrhage or mass effect. 2. No acute intracranial findings. Hip/Pelvis X-Ray 05/17/22 11:41 IMPRESSION: No acute findings. Thoracic Spine CT 05/17/22 11:41 IMPRESSION: Slightly displaced spinous process fractures at T4-T8. No other visualized fractures. Notified LALA Menendez at 05/17/2022 1:30 PM. Discharge Plan Discharge Patient Disposition: Home Clinical Impression: Fracture of spinous process of thoracic vertebra Qualifiers: Encounter type: initial encounter Fracture type: closed Qualified Code(s): S22.008A - Other fracture of unspecified thoracic vertebra, initial encounter for closed fracture Minor head injury with loss of consciousness Qualifiers: Encounter type: initial encounter Qualified Code(s): S06.9X9A - Unspecified intracranial injury with loss of consciousness of unspecified duration, initial encounter Condition: Stable Prescriptions: No Action topiramate [Topamax] 50 mg tablet 50 mg PO BID zolpidem 10 mg tablet 10 mg PO BEDTIME bupropion HCl [Wellbutrin SR] 100 mg tablet sustained-release 12 hr 100 mg PO DAILY ondansetron 8 mg tablet,disintegrating 8 mg PO Q8H PRN (Reason: nausea and vomiting) 5 Days Qty: 15 0RF methocarbamol 750 mg tablet 750 mg PO Q8H PRN (Reason: Back muscle pain and spasms) Qty: 30 0RF ibuprofen 800 mg tablet 800 mg PO Q8H PRN (Reason: pain) Qty: 30 0RF hydrocodone-acetaminophen 5-325 mg tablet 1 tab PO Q6H PRN (Reason: pain) 7 Days Qty: 30 0RF esomeprazole magnesium 40 mg capsule,delayed release(DR/EC) 40 mg PO BID Women's 50 Plus Multivitamin 400 mcg-500 mg calcium-20 mcg Tablet 1 tab PO DAILY Discharge Orders: Discharge ED (Routine); Ordered 05/17/22 Ordered By: Amado Ortiz Referrals: Shanae Guerrero NP [Primary Care Provider] - Discharge Diet: Regular Discharge Activity: Limit activity as instructed Patient Instructions: Head Injury (DC), Transverse Process Fracture (ED), Opioid Safety Activity Restrictions/Additional Instructions: Follow-up with medical provider as directed. Case management should be contacting you in the next several days set up appointment with Dr. Fontana for follow-up. Wear TLSO brace and limit lifting until cleared by Ortho. Take medications as prescribed. Return to the ER or your medical provider if condition worsens. Please read and understand discharge instructions. Thank you for choosing [facility] for your healthcare needs today. Please realize this is an emergency room and that we are providing you with a medical screening exam and this may not be complete and all inclusive of all the testing and or work up that you may need to determine your ailment or severity of your illness. It is very important that you follow up as instructed or that you return to the Emergency Department should you have concerns or if your condition changes or worsens in any way. Coding Level of Care Code ED Vinyl Installer for Zoey Faust Exam Comprehensive
[2022-05-17] MEDS: orphenadrine 30 mg/mL Inj 2 mL 60 MG IM (12:24)
[2022-05-17] MEDS: morphine 4 mg/mL SDV 1 mL IM (12:24)
--- NOTE | 2022-05-17 14:33 | DCPLANNER ---
Addendum entered by Marni Birch 06/27/22 13:02: Patient had a follow up appointment scheduled with ortho - patient did attend appointment. Addendum entered by Marni Birch 05/19/22 10:25: Patient has a follow up appointment scheduled for Monday, May 23, 2022 at 8:[address] Fontana at ortho. Clinic will call patient with appointment information. Original Note: manager subway had message to schedule a follow up appointment for patient with ortho. manager subway sent patients information to the front office staff at ortho. Patients information will be printed and reviewed. Clinic will call patient with appointment information.
[2022-05-17] MEDS: HYDROmorphone 1 mg/mL INJ 1 mL IM (14:43)
== END 2022-05-17 15:17 | disposition home or self-care (01) ==
PROVIDERS: Emergency Provider Physician Assistant; PCP Nurse Practitioner
DX: S09.8XXA Other specified injuries of head, initial encounter (principal); S22.048A Other fracture of fourth thoracic vertebra, initial encounter for closed fracture; S22.058A Other fracture of T5-T6 vertebra, initial encounter for closed fracture; S22.068A Other fracture of T7-T8 thoracic vertebra, initial encounter for closed fracture; Z87.891 Personal history of nicotine dependence; V80.010A Animal-rider injured by fall from or being thrown from horse in noncollision accident, initial encounter
CPT/HCPCS: 70450; 71045; 72125; 72128; 73502; 96372; 97760; 99285; J1170; J2270; J2360; L0456

== ENCOUNTER → 2022-05-23 08:14 | Outpatient (BNVA) | payer MEDICARE, BC, SELFPAY | PROVIDERS: PCP Nurse Practitioner; Referring Provider Physician Assistant; Visit Provider Orthopaedic Surgery | DX: S22.008A Other fracture of unspecified thoracic vertebra, initial encounter for closed fracture (principal); V80.010A Animal-rider injured by fall from or being thrown from horse in noncollision accident, initial encounter; M47.814 Spondylosis without myelopathy or radiculopathy, thoracic region | CPT/HCPCS: 72070; 99203 ==

== ENCOUNTER → 2022-06-20 09:29 | Outpatient (BNVA) | payer MEDICARE, BC, SELFPAY | PROVIDERS: PCP Nurse Practitioner; Visit Provider Orthopaedic Surgery | DX: S22.040D Wedge compression fracture of fourth thoracic vertebra, subsequent encounter for fracture with routine healing (principal); S22.050D Wedge compression fracture of T5-T6 vertebra, subsequent encounter for fracture with routine healing; S22.060D Wedge compression fracture of T7-T8 vertebra, subsequent encounter for fracture with routine healing; V80.010D Animal-rider injured by fall from or being thrown from horse in noncollision accident, subsequent encounter; R07.1 Chest pain on breathing | CPT/HCPCS: 72070; 99213 ==

== ENCOUNTER 2023-02-04 13:48 | Emergency (ER) | payer MEDICARE, BC, SELFPAY ==
[2023-02-04 13:58] VITALS: BP 132/84; PULSE 81; RESP 16; TEMP 36.7; O2SAT 99; BMI 24.0
--- NOTE | 2023-02-04 14:11 | XRR_ITS ---
PROCEDURE INFORMATION: Exam: XR Right Ribs with PA Chest Exam date and time: 02/04/2023 2:22 PM Age: 57 years old Clinical indication: Injury or trauma; Other: Stepped on by horse; Rib area; Blunt trauma (contusions or hematomas); Additional info: Right chest wall blunt trauma TECHNIQUE: Imaging protocol: Radiologic exam of the right ribs with PA chest. Views: 3 views COMPARISON: CR XR chest 1V portable [id number] 05/17/2022 11:47 AM FINDINGS: Lungs: Unremarkable. No consolidation. Pleural spaces: Unremarkable. No pleural effusion. No pneumothorax. Heart/Mediastinum: Unremarkable. No cardiomegaly. Bones/joints: Unremarkable. XR/XR ribs RT mn 3V w CXR1V [id number] IMPRESSION: No acute findings.
[2023-02-04 14:20] VITALS: BP 112/68; PULSE 69; RESP 23; O2SAT 99
--- NOTE | 2023-02-04 14:24 | ED_ITS ---
HPI - Trauma General: Chief Complaint: Trauma Stated Complaint: Horse stepped on chest Time Seen by Provider: 02/04/23 14:06 History of Present Illness: Patient presents to the ER with complaints of right chest wall pain after being thrown off her horse into the river. Horse may have kicked the patient in the right lateral chest wall or she may have hit rocks. Patient also was complaining of hematoma above her left eyebrow. This is also a known whether this she was kicked or hit head on a rock. Patient not lose consciousness. Patient denies any headache at this time. Review of Systems General: Reports: 10 or more systems reviewed and unremarkable except in HPI and below PFSH ED PFSH: Medical History Depression Insomnia Seizures Social History Smoking and tobacco status: former smoker (30 years) Quit status (tobacco): has quit using tobacco Second hand smoke exposure: No Smoking risk assessment/counseling performed?: Yes Alcohol intake: current Alcohol intake frequency: 0-2 Drinks per Day Alcohol type: wine Desire information about alcohol rehabilitation?: No Counseling given: Yes Substance/Drug Use: never Desire information about substance/drug rehabilitation?: No Counseling given: Yes Physical Exam Const: COMMON NORMALS: no acute distress, average body habitus, patient or iented x3, no limitations, healthy appearing, alert and well nourished HENMT: COMMON NORMALS: normocephalic, hearing grossly normal bilaterally, e xternal ears normal, Normal external nose present and moist oral mucous membranes; head/scalp not atraumatic (Hematoma left forehead above left eyebrow) HEAD & SCALP: normocephalic; not atraumatic (Hematoma left forehead above left eyebrow) NOSE: Normal external nose present EXTERNAL EAR: Yes external ears normal Eye: COMMON NORMALS: Equal, round and reactive pupils present, EOMs intact bilaterally, conjunctivae normal and no scleral icterus CONJUNCTIVA: Yes conjunctivae normal PUPIL: Yes Equal, round and reactive pupils present Neck/C-Spine: COMMON NORMALS: full ROM, no lymphadenopathy, supple, no meningeal signs, no JVD and Thyroid normal THYROID: Thyroid normal Chest: COMMONS NORMALS: negative for normal palpation of entire chest wall (Pain with palpation over right lateral chest wall. There are also abrasion) Resp: COMMON NORMALS: normal respiratory effort, No retractions, No use of accessory muscles and clear to auscultation bilaterally AUSCULTATION: clear to auscultation bilaterally Cardio: COMMON NORMALS: no JVD, regular rate, regular rhythm, S1 normal heart sound present, S2 normal heart sound present, No gallops present (Cardio), No clicks present (Cardio), No murmurs present (Cardio) and No rub (Cardio) RATE: regular rate RHYTHM: regular rhythm HEART SOUNDS: S1 normal heart sound present and S2 normal heart sound present GI: COMMON NORMALS: Normal to inspection, nondistended, normoactive bowel sounds present, Soft to palpation, non-tender, No hepatosplenomegaly present and no masses PALPATION: Yes Soft to palpation and Yes No hepatosplenomegaly present : COMMON NORMALS: Yes no CVA tenderness BLADDER/KIDNEY EXAM: Yes no CVA tenderness Back/Pelvis: COMMON NORMALS: no CVA tenderness Neuro: COMMON NORMALS: patient oriented x3 SENSORIUM/ORIENTATION: Yes alert MENINGEAL SIGNS: Yes no meningeal signs Course Vital Signs: Vital signs: Vital Signs Temperature 98.0 F 02/04/23 13:58 Pulse Rate 69 02/04/23 14:20 Respiratory Rate 23 H 02/04/23 14:20 Blood Pressure 112/68 02/04/23 14:20 Pulse Oximetry 99 02/04/23 14:20 Oxygen Delivery Me thod Room Air 02/04/23 14:20 MDM - Trauma Medical Decision Making SwallowPatient presents to the ER with complaints of right rib pain pain and pain when she takes a big deep breath. This is secondary to [place] horse [place] the river. X-rays was obtained which showed no acute findings. These findings was explained to the patient how rib fractures are notoriously bad about being missed on plain films. Patient is okay with this. Patient will be discharged home on muscle relaxer to help her get some sleep for the next couple nights. Differential Diagnosis Unlikely penetrating abdominal trauma, abusive head trauma, kidney laceration, suspected child abuse, contusion of heart, fracture of mandible or fracture of face bones Medical Records I reviewed the patient's medical records. Lab Data I reviewed the patient's lab results. Radiology Impressions Ribs X-Ray 02/04/23 14:11 IMPRESSION: No acute findings. Discharge Plan Discharge Patient Disposition: Home Clinical Impression: Contusion of right chest wall Qualifiers: Encounter type: initial encounter Qualified Code(s): S20.211A - Contusion of right front wall of thorax, initial encounter Condition: Stable Prescriptions: New cyclobenzaprine 5 mg tablet 5 mg PO Q8H PRN (Reason: muscle spasm) Qty: 14 0RF No Action topiramate [Topamax] 50 mg tablet 50 mg PO BID zolpidem 10 mg tablet 10 mg PO BEDTIME bupropion HCl [Wellbutrin SR] 100 mg tablet sustained-release 12 hr 100 mg PO DAILY Women's 50 Plus Multivitamin 400 mcg-500 mg calcium-20 mcg Tablet 1 tab PO DAILY esomeprazole magnesium 20 mg Capsule,Delayed Release(Dr/Ec) 20 mg PO DAILY Discharge Orders: Discharge ED (Routine); Ordered 02/04/23 Ordered By: Luiz Bah Referrals: Shanae Guerrero, [facility] [Primary Care Provider] - 1 week Patient Instructions: Chest Pain - Chest Wall Activity Restrictions/Additional Instructions: Please follow-up with your family doctor in approximately 7 to 10 days as needed. Please take your muscle relaxers as needed for pain and muscle spasm. Coding Level of Care Code ED Superintendent Transportation for Zoey Faust
[2023-02-04] MEDS: tetanus-dipt-pertussis 0.5 mL SDV IM (14:31)
[2023-02-04 15:38] VITALS: BP 103/72; PULSE 71; RESP 18; O2SAT 99
[2023-02-04 15:43] VITALS: BP 103/72; PULSE 71; RESP 18; TEMP 36.7; O2SAT 99
== END 2023-02-04 15:44 | disposition home or self-care (01) ==
PROVIDERS: Emergency Provider Emergency Medicine; PCP Nurse Practitioner
DX: S20.211A Contusion of right front wall of thorax, initial encounter (principal); Z87.891 Personal history of nicotine dependence; V80.010A Animal-rider injured by fall from or being thrown from horse in noncollision accident, initial encounter; Z23 Encounter for immunization
CPT/HCPCS: 71101; 90471; 90715; 99283

== ENCOUNTER 2023-04-09 09:58 | Outpatient (CLI) | payer MEDICARE, BC, SELFPAY ==
--- NOTE | 2023-04-09 10:32 | MM_ITS ---
WS: [id number] BILATERAL SCREENING DIGITAL TOMOSYNTHESIS MAMMOGRAM WITH CAD HISTORY: SCREENING COMPARISON: 11/30/2021 and 01/28/2020 Bilateral CC and MLO views with tomosynthesis and synthetic mammography submitted. Computer aided det ection analyzed. Breast composition: There are scattered areas of fibroglandular density. No suspicious masses, microc alcifications or architectural distortion. Stable benign calcification in the posterior LEFT breast n ear 12:00. IMPRESSION: MM/[place] [id number] BI-RADS: 2-Benign FOLLOW UP: 1 Year Follow-up
== END 2023-04-09 09:59 | disposition home or self-care (01) ==
LOC: RAD 10:05
PROVIDERS: PCP Nurse Practitioner; Visit Provider Nurse Practitioner
DX: Z12.31 Encounter for screening mammogram for malignant neoplasm of breast (principal)
CPT/HCPCS: 77063; 77067

== ENCOUNTER 2023-11-20 15:46 | Outpatient (CLI) | payer MEDICARE, BC, SELFPAY ==
--- NOTE | 2023-11-20 15:52 | XRR_ITS ---
PROCEDURE INFORMATION: Exam: XR Left Finger(s) Exam date and time: 11/20/2023 3:55 PM Age: 58 years old Clinical indication: Finger(s); Left; Patient HX: Hurt finger 2 weeks ago pain since; Additional info: Left ring finger pain, 3v left ring finger TECHNIQUE: Imaging protocol: Radiologic exam of the left fingers. Views: Minimum 2 views. COMPARISON: CR XR hand LT min 3V* [id number] 10/22/2018 8:58 PM FINDINGS: Bones/joints: Normal. Soft tissues: Normal. XR/XR finger LT min 2V [id number] IMPRESSION: No acute findings.
== END 2023-11-20 15:47 | disposition home or self-care (01) ==
LOC: RAD 15:49
PROVIDERS: PCP Nurse Practitioner; Visit Provider Nurse Practitioner Family
DX: S69.92XA Unspecified injury of left wrist, hand and finger(s), initial encounter (principal); X58.XXXA Exposure to other specified factors, initial encounter
CPT/HCPCS: 73140

== ENCOUNTER → 2024-06-02 13:39 | Outpatient (BNVA) | payer MEDICARE, SELFPAY | PROVIDERS: PCP Nurse Practitioner; Visit Provider Specialist | DX: M79.642 Pain in left hand; S69.92XS Unspecified injury of left wrist, hand and finger(s), sequela; X58.XXXS Exposure to other specified factors, sequela | CPT/HCPCS: 73130; 99204 ==

== ENCOUNTER 2024-07-10 07:44 | Outpatient (CLI) | payer MEDICARE, SELFPAY ==
[2024-07-10 08:07] VITALS: BMI 24.9
--- NOTE | 2024-07-10 08:07 | ECG_ITS ---
[facility] Test Date: 2024-07-10 Pat Name: Inna Martínez Department: Room: Gender: Female Medical Physics Researcher: : 1965 Requested By: Brittani Bailey Order Number: [id number] A Escobedo MD: Sidney Alvarado M.D. Interpretive Statements EXERCISE STREE TEST: Patient was scheduled for an exercise MIBI however on exercise patient started having severe substernal chest pain and could not reach target heart rate. EXERCISE DATA: The patient was exercised by [place] protocol. Baseline heart rate was 64 beats per minute. Baseline blood pressure was 140/84 millimeters of mercury. Maximal predicted heart rate was 160 beats per minute. Maximum heart rate achieved was 117 which was 73% of the maximum predicted heart rate. Maximum blood pressure was 160/84 millimeters of mercury. Total exercise time was 4 minutes and 6 seconds. Maximum METs achieved was 7. The reason for ending the test was inability to continue because of severe chest pain. The patient complained of chest pain during the stress test, which then resolved at the end of the test. ELECTROCARDIOGRAM: BASELINE: Showed sinus rhythm, normal axis, no significant ST-T changes at the baseline noted. [] EXERCISE: At the peak exercise level, [] Non-specific ST T wave changes. RECOVERY: During the recovery period, heart rate dropped appropriately. Non specific ST T wave changes. CONCLUSION: 1. Exercise capacity is fair. 2. Heart rate response was suboptimal because of inability to continue secondary to symptoms 3. Blood pressure response was appropriate 4. Symptoms highly suggestive of ischemia. 5. Stress test is indeterminate because of inability to continue secondary to severe chest pain. Electronically Signed On 07-13-2024 20:54:56 PR SPECIALIST by Sidney Alvarado M.D. [email or web address]
[2024-07-10 09:58] VITALS: BP 123/84; PULSE 72
--- NOTE | 2024-07-10 10:00 | PC.NURSE ---
Stress test note Patient here for Exercise mibi while ambulating on treadmill Pt unable to meet Target HR , rate 116. Treadmill test aborted due to chest pain 02/22, ischemic changes observed on EKG. Dr. Alvarado notified and called to stress lab for symptoms, EKG, and inability to acheive target HR due to symptoms. Chest pain improving with rest 10/23. After speaking with patient Dr. Alvarado plans to admit to hospital today and plan for angiogram tomorrow. Pt and agree with plan. Chest pain resolved after 15 minutes of recovery from stress test.
--- NOTE | 2024-07-10 10:11 | PC.NURSE ---
Patient escorted to ER via wheelchair for admit for unstable angina. BP 123/84 HR 72. IV left in place. Chest pain resolved in recovery.
== END 2024-07-10 07:45 | disposition home or self-care (01) ==
PROVIDERS: PCP Nurse Practitioner; Visit Provider Nurse Practitioner Family
DX: R07.9 Chest pain, unspecified (principal); R06.02 Shortness of breath; R79.89 Other specified abnormal findings of blood chemistry; R94.39 Abnormal result of other cardiovascular function study
CPT/HCPCS: 36415; 93017

== ENCOUNTER 2024-07-10 10:08 | Inpatient (IN) | payer MEDICARE, SELFPAY ==
[2024-07-10] VITALS (9 sets, daily range): BP systolic 119–140; BP diastolic 70–80; PULSE 61–79; RESP 14–20; TEMP 36.6–37.4; O2SAT 93–100; BMI 24.9
--- NOTE | 2024-07-10 10:09 | XR_ITS ---
WS: [id number] PORTABLE CHEST HISTORY: cp COMPARISON: 02/04/2023 Mild pulmonary hyperinflation. No mass or pneumonia. A few scattered granulomata. No pleural effusion or pneumothorax. Cardiac size: Normal. Mediastinum/Aorta: Normal mediastinum. Healing contiguous rib fractures involving the posterior LEFT rib cage. Rib fractures from the fifth through ninth ribs. XR/XR chest 1V portable [id number] IMPRESSION: Mild pulmonary hyperinflation. No pneumonia.
--- NOTE | 2024-07-10 10:09 | ECG_ITS ---
[facility] Test Date: 2024-07-10 Pat Name: Inna Martínez Department: Room: Gender: Female Sales Support Specialist: : 1965 Requested By: Coral Thomas Order Number: [id number] Fanny MD: Sidney Alvarado M.D. Measurements Intervals [place] Rate: 61 P: 64 ID: 162 QRS: 56 QRSD: 87 T: 46 QT: 423 QTc: 426 Interpretive Statements SINUS RHYTHM No previous ECG available for comparison Electronically Signed On 07-11-2024 18:35:02 RAISE DRILL OPERATOR by Sidney Alvarado M.D. [id number]
--- NOTE | 2024-07-10 10:22 | ED_ITS ---
HPI - Chest Pain 2 General: Chief Complaint: Chest Pain Stated Complaint: failed stress test sent from Time Seen by Provider: 07/10/24 10:09 Source: patient Mode of arrival: ambulatory Limitations: no limitations History of Present Illness: 59-year-old female who states she has be en having chest pain for the last 4 weeks. She states the pain has been mainly exertional has had some pain at rest she was set up for stress test today started having severe pain during a stress test was not able to complete it was sent over here from the stress lab for further evaluation states her pain has improved she has some mild pain she rates a 1 out of 10 she denies any cough or fever. Associated symptoms: Reports dyspnea; Deny abdominal pain, fever(s), nausea or vomiting Related Data Home Medications Medication Instructions Recorded Confirmed bupropion HCl 100 mg tablet,12 hr 100 mg PO DAILY 12/02/20 07/10/24 sustained-release (Wellbutrin SR) topiramate 50 mg tablet (Topamax) 50 mg PO BID 12/02/20 07/10/24 vwylzyqr-jdk-uwkkj ac 400 1 tab PO DAILY 05/17/22 07/10/24 mcg-calcium carb 500 mg-vit K1 20 mcg tablet (Women's 50 Plus Multivitamin) esomeprazole magnesium 20 mg 20 mg PO DAILY 02/04/23 07/10/24 capsule,delayed release trazodone 100 mg tablet 100 mg PO DAILY 06/02/24 07/10/24 aspirin 81 mg tablet,delayed 81 mg PO DAILY 07/10/24 07/10/24 release (Kourtney Low Dose Aspirin) ferrous sulfate 325 mg (65 mg 325 mg PO DAILY 07/10/24 07/10/24 iron) tablet (Iron (ferrous sulfate)) fexofenadine 180 mg tablet 180 mg PO DAILY PRN allergies 07/10/24 07/10/24 Allergies Allergy/AdvReac Type Severity Reaction Status Date / Time No Known Allergies Allergy Verified 06/02/24 14:02 Review of Systems 2 Const: Denies: fever(s), chills, body aches or change in appetite ENMT: Denies: throat pain or dental pain Card: Reports: chest pain Resp: Reports: dyspnea GI: Denies: abdominal pain, nausea, vomiting or diarrhea Musc: Denies: neck pain or back pain Skin/Breast: Denies: rash Neuro: Denies: headache(s) PFSH ED 2 PFSH: Medical History Seizures Depression Insomnia Social History Smoking and tobacco/nicotine status: former use of tobacco/nicotine Quit status (tobacco/nicotine): has quit using Second hand smoke exposure: No Alcohol intake: current Alcohol intake frequency: 0-2 Drinks per Day Alcohol type: wine Substance/Drug Use: never Physical Exam 2 Const: COMMON NORMALS: no acute distress, patient oriented x3 and healthy appearing HENMT: COMMON NORMALS: normocephalic and atraumatic HEAD & SCALP: n ormocephalic and atraumatic Eye: COMMON NORMALS: conjunctivae normal CONJUNCTIVA: Yes conjunctivae normal Neck/C-Spine: COMMON NORMALS: full ROM and supple Chest: COMMONS NORMALS: normal inspection of the chest Resp: COMMON NORMALS: normal respiratory effort, No retractions, No use of accessory muscles and clear to auscultation bilaterally AUSCULTATION: clear to auscultation bilaterally Cardio: COMMON NORMALS: regular rate, regular rhythm and No murmurs present (Cardio) RATE: regular rate RHYTHM: regular rhythm Extremity: COMMON NORMALS: normal to inspection and full ROM Neuro: COMMON NORMALS: patient oriented x3, moves all extremities and no focal motor deficits Psych: COMMON NORMALS: mental status grossly normal, Normal thought process present and cooperative THOUGHT PROCESS: Normal thought process present Skin: COMMON NORMALS: no rashes or lesions noted and no wounds GENERAL SKIN EXAM: no rashes or lesions noted Course 2 Vital Signs: Vital signs: Vital Signs Temperature 97.9 F 07/10/24 10:22 Pulse Rate 79 07/10/24 11:55 Respiratory Rate 16 07/10/24 11:55 Blood Pressure 124/70 07/10/24 11:55 Pulse Oximetry 99 07/10/24 11:55 Oxygen Delivery Me thod Room Air 07/10/24 11:55 MDM - Chest Pain Medical Decision Making Patient presents for chest pain D-dimer here is negative she has had improved pain here is currently pain-free did your aspirin spoke to bulb packer along with hospitalist will admit for ACS rule out Medical Records I reviewed the patient's medical records. Lab Data I reviewed the patient's lab results. 07/10/24 10:27 07/10/24 11:25 Radiology Impressions Chest X-Ray 07/10/24 10:09 IMPRESSION: Mild pulmonary hyperinflation. No pneumonia. Laboratory Results WBC 5.33 10^3/uL (3.29-11.43) 07/10/24 10:27 RBC 3.39 10^6/uL (3.85-5.65) L 07/10/24 10:27 Hgb 12.20 g/dL (11.27-16.99) 07/10/24 10:27 Hct 35.7 % (36-47) L 07/10/24 10: MCV 105.3 fl (85-98) H 07/10/24 10:27 MCH 36.0 pg (27-33) H 07/10/24 10: MCHC 34.2 g/dL (30-55) 07/10/24 10: RDW 11.9 % (12.1-15.1) L 07/10/24 10:27 Plt Count 211 10^3/cmm (157-399) 07/10/24 10:27 MPV 10.7 fL (7.4-10.4) H 07/10/24 10:27 Neut % (Auto) 52.9 % 07/10/24 10:27 Lymph % (Auto) 33.6 % 07/10/24 10:27 [place] % (Auto) 6.9 % 07/10/24 10:27 Eos % (Auto) 4.9 % 07/10/24 10: Baso % (Auto) 1.3 % 07/10/24 10:27 Neut # (Auto) 2.82 10^3/uL (1.8-7.7) 07/10/24 10:27 Lymph # (Auto) 1.8 10^3/uL (0.8-4.8) 07/10/24 10:27 [place] # (Auto) 0.4 10^3/uL (0.2-0.9) 07/10/24 10:27 Eos # (Auto) 0.3 10^3/uL (0.0-0.8) 07/10/24 10:27 Baso # (Auto) 0.1 10^3/uL (0.0-0.1) 07/10/24 10:27 Nucleated RBC % (auto) 0 % 07/10/24 10:27 Nucleated RBCs # 0.0 /100WBC 07/10/24 10:27 D-Dimer 0.36 ug/mLFEU (0-0.59) 07/10/24 11:25 Sodium 141 mmol/L (136-145) 07/10/24 11:25 Potassium 4.2 mmol/L (3.5-5.1) 07/10/24 11:25 Chloride 106 mmol/L (98-107) 07/10/24 11:25 Carbon Dioxide 23 mmol/L (22-29) 07/10/24 11:25 Anion Gap 16.2 (5-19) 07/10/24 11:25 BUN 17 mg/dL (8-23) 07/10/24 11:25 Creatinine 0.7 mg/dL (0.5-0.9) 07/10/24 11:25 GFR Calculation 85.4 mL/min (90-130) L 07/10/24 11:25 Glucose 81 mg/dL (65-115) 07/10/24 11:25 Calculated Osmolality 293 mOsm/kg (285-295) 07/10/24 11:25 Calcium 9.3 mg/dL (8.5-10.5) 07/10/24 11:25 Total Bilirubin 0.5 mg/dL (0.15-1.2) 07/10/24 11:25 AST 20 U/L (0-32) 07/10/24 11:25 ALT 10 U/L (0-33) 07/10/24 11:25 Alkaline Phosphatase 90 U/L (35-105) 07/10/24 11:25 Troponin T Baseline 18 ng/L (0-10) H 07/10/24 11:25 Total Protein 6.4 g/dL (6.6-8.7) L 07/10/24 11:25 Albumin 4.4 g/dL (3.5-5.2) 07/10/24 11:25 Globulin 2.0 g/dL (1.3-4.6) 07/10/24 11:25 All radiology interpretation(s) finalized by discharge EKG Data EKG 1: I personally reviewed and interpreted this EKG as follows: EKG interpretation date: 07/10/24 EKG interpretation time: 10:15 Interpretation: nsr hr [address] elevation qrs 87 qtc 425 EKG 2: I personally reviewed and interpreted this EKG as follows: EKG interpretation date: 07/10/24 EKG interpretation time: 11:54 Interpretation: nsr hr [address] elevation qrs 85 qtc 435 Discharge Plan Discharge Patient Disposition: Admitted As Inpatient Clinical Impression: Chest pain Condition: Stable Prescriptions: No Action topiramate [Topamax] 50 mg tablet 50 mg PO BID bupropion HCl [Wellbutrin SR] 100 mg tablet sustained-release 12 hr 100 mg PO DAILY trazodone 100 mg tablet 100 mg PO DAILY fexofenadine [Roma] 180 mg Tablet 180 mg PO DAILY PRN (Reason: allergies) aspirin [Kourtney Low Dose Aspirin] 81 mg Tablet,Delayed Release (Dr/Ec) 81 mg PO DAILY ferrous sulfate [Iron (ferrous sulfate)] 325 mg (65 mg iron) Tablet 325 mg PO DAILY Women's 50 Plus Multivitamin 400 mcg-500 mg calcium-20 mcg Tablet 1 tab PO DAILY esomeprazole magnesium 20 mg Capsule,Delayed Release(Dr/Ec) 20 mg PO DAILY Referrals: Shanae Guerrero NP [Primary Care Provider] - Coding Level of Care Code ED International Marketing Manager for Zoey Faust
[2024-07-10 10:45] LABS: Basophils # 0.1 10^3/uL (0.0-0.1); Basophils % 1.3 %; Eosinophils # 0.3 10^3/uL (0.0-0.8); Eosinophils % 4.9 %; Hematocrit 35.7 % (36-47); Lymphocytes # 1.8 10^3/uL (0.8-4.8); Lymphocytes % 33.6 %; Mean Corpuscular HGB Conc 34.2 g/dL (30-55); Mean Corpuscular Volume 105.3 fl (85-98); Mean Platelet Volume 10.7 fL (7.4-10.4); Monocytes # 0.4 10^3/uL (0.2-0.9); Monocytes % 6.9 %; Neutrophils # 2.82 10^3/uL (1.8-7.7); Neutrophils % 52.9 %; Nucleated Red Blood Cells % 0 %; Platelet Count 211 10^3/cmm (157-399); Red Blood Count 3.39 10^6/uL (3.85-5.65); Red Cell Distribution Width 11.9 % (12.1-15.1); White Blood Count 5.33 10^3/uL (3.29-11.43)
[2024-07-10] MEDS: aspirin 81 mg Chew Tablet 243 MG PO (10:50)
[2024-07-10 11:50] LABS: D Dimer 0.36 ug/mLFEU (0-0.59)
[2024-07-10 11:55] LABS: Troponin(5th) Baseline 18 ng/L (0-10)
[2024-07-10 12:01] LABS: Alanine Aminotransferase 10 U/L (0-33); Albumin Level 4.4 g/dL (3.5-5.2); Alkaline Phosphatase 90 U/L (35-105); Anion Gap 16.2 (5-19); Aspartate Amino Transferase 20 U/L (0-32); Blood Urea Nitrogen 17 mg/dL (8-23); Calcium 9.3 mg/dL (8.5-10.5); Carbon Dioxide 23 mmol/L (22-29); Chloride 106 mmol/L (98-107); Creatinine Clr Calc Pharmacy 79.7764; Glomerular Filtration Rate 85.4 mL/min (90-130); Glucose 81 mg/dL (65-115); Osmolality Calculated 293 mOsm/kg (285-295); Potassium 4.2 mmol/L (3.5-5.1); Sodium 141 mmol/L (136-145); Total Bilirubin 0.5 mg/dL (0.15-1.2); Total Protein 6.4 g/dL (6.6-8.7)
--- NOTE | 2024-07-10 12:09 | ECG_ITS ---
[facility]: 2024[facility]10 Pat Name: Inna Martínez Department: Room: Gender: Female Cognos Consultant: : 1965 Requested By: Coral Thomas Order Number: [id number] Fanny MD: Sidney Alvarado M.D. Measurements Intervals [place] Rate: 62 P: 57 AR: 162 QRS: 59 QRSD: 85 T: 48 QT: 430 QTc: 437 Interpretive Statements SINUS RHYTHM Compared to ECG 07/10/2024 10:15:39 No significant changes Electronically Signed On 07-11-2024 18:40:29 INDUSTRIAL ELECTRICIAN JOURNEYMAN by Sidney Alvarado M.D. [id number]
--- NOTE | 2024-07-10 12:22 | P.CONIM_ITS ---
Providers/Reason For Consult 2 Consulting Physician/Specialty*: Sidney Alvarado MD/ Cardiology Reason for Consult*: Chest pain/ troponin elevation Requesting Physician: Dr Thomas Attending Physician: Amelie Hernandez MD Primary Care Provider: Shanae Guerrero NP History of Present Illness History of Present Illness Inna Martínez is a 59 year old female with no significant prior cardiac history who presented to the hospital for an outpatient stress test. Few minutes into exercise, she started having severe substernal chest discomfort. Stress test had to be terminated. EKG had nonspecific ST-T wave changes. I evaluated the patient in the stress lab and her symptoms are concerning for worsening angina/unstable angina. Patient has been started experiencing chest pain symptoms in the last 4 to 5 weeks. Has noted multiple episodes with exertion. Had resting chest discomfort as well that was quite significant radiating to the arm. We sent patient to the emergency room for further evaluation. Her initial troponin was 18 that trended up to 36 at 2 hours. She has dynamic EKG changes with T wave inversion seen in anterior leads. Review of Systems 2 Const: Denies: fever(s), chills, body aches or change in appetite ENMT: Denies: throat pain or dental pain Card: Reports: chest pain Resp: Reports: dyspnea GI: Denies: abdominal pain, nausea, vomiting or diarrhea Musc: Denies: neck pain or back pain Skin/Breast: Denies: rash Neuro: Denies: headache(s) Medications/Allergies Home Medications Medication Instructions Recorded Confirmed Last Taken Type bupropion HCl 100 mg tablet,12 hr 100 mg PO DAILY 12/02/20 07/10/24 07/10/24 History sustained-release (Wellbutrin SR) topiramate 50 mg tablet (Topamax) 50 mg PO BID 12/02/20 07/10/24 07/10/24 History jiikibqv-tqg-dqcqa ac 400 1 tab PO DAILY 05/17/22 07/10/24 07/10/24 History mcg-calcium carb 500 mg-vit K1 20 mcg tablet (Women's 50 Plus Multivitamin) esomeprazole magnesium 20 mg 20 mg PO DAILY 02/04/23 07/10/24 07/10/24 History capsule,delayed release trazodone 100 mg tablet 100 mg PO DAILY 06/02/24 07/10/24 07/09/24 History aspirin 81 mg tablet,delayed 81 mg PO DAILY 07/10/24 07/10/24 07/10/24 History release (Kourtney Low Dose Aspirin) ferrous sulfate 325 mg (65 mg 325 mg PO DAILY 07/10/24 07/10/24 07/09/24 History iron) tablet (Iron (ferrous sulfate)) fexofenadine 180 mg tablet 180 mg PO DAILY PRN allergies 07/10/24 07/10/24 Unknown History Allergies Allergy/AdvReac Type Severity Reaction Status Date / Time No Known Allergies Allergy Verified 06/02/24 14:02 PFSH Acute 2 PFSH: Medical History Seizures Depression Insomnia Social History Smoking and tobacco/nicotine status: former use of tobacco/nicotine Quit status (tobacco/nicotine): has quit using Second hand smoke exposure: No Alcohol intake: current Alcohol intake frequency: 0-2 Drinks per Day Alcohol type: wine Substance/Drug Use: never Vitals/I&O/Wt Last Vital Signs Temp 97.9 F 07/10/24 10:22 Pulse 61 07/10/24 12:00 Resp 16 07/10/24 12:00 BP 136/76 07/10/24 12:00 Pulse Ox 93 07/10/24 12:00 O2 Del Method Room Air 07/10/24 12:00 Weight last 48 hrs Weight 145 lb Physical Exam 2 Narrative: GENERAL: Patient is alert, awake and oriented x3. [] NECK: No jugular vein distension. [] HEENT: No cyanosis. No icterus. No pallor. [] HEART: Regular S1 and S2. No murmur, rub or gallop. [] LUNGS: Clear to auscultate bilaterally. [] CENTRAL NERVOUS SYSTEM: Grossly nonfocal. [] EXTREMITIES: Lower extremities with no edema bilaterally. Data 07/11/24 05:57 07/11/24 05:57 A&P Assessment and plan (1) NSTEMI (non-ST elevated myocardial infarction): (2) Chest pain: Plan Patient has been having worsening chest pain symptoms and has experienced resting chest discomfort as well. She could not complete stress test secondary to severe substernal chest discomfort. Troponins are elevated. Findings consistent with non-ST elevation GA. Will proceed with anticoagulation and aspirin at this time. N.p.o. past midnight. Plan for coronary angiogram with possible PCI tomorrow. Risks and benefits of the procedure were discussed. She understands these and wants to proceed. Will order echocardiogram. Thank you for involving us with care of this patient. Will continue to follow. Please call with questions. Consult Attestations 2 Medical Necessity Statement: Defer to primary team Coding Level of Care Code Acute Code for [facility] Diagnoses NSTEMI (non-ST elevated myocardial infarction) I21.4 Chest pain R07.9
--- NOTE | 2024-07-10 12:39 | PC.NURSE ---
Patient transferred from ED to CSU via a wheelchair at 1240. Report was given by
--- NOTE | 2024-07-10 14:53 | PM.HP ---
Providers/Chief Complaint Admitting Physician: Amelie Hernandez MD Primary Care Provider: Shanae Guerrero NP Chief Complaint: failed stress test sent from History of Present Illness Inna Martínez is a 59 year old female without known significant comorbidities who had been experiencing increasing chest pain for the past 5 to 6 weeks. Patient states her symptoms started approximately 6 weeks ago. Initially she would experience midsternal discomfort radiating into the right arm with exertion only. Gradually it started to interfere with her ADLs such as carrying groceries etc. She is still very active at baseline. Eventually the chest discomfort started happening even at rest. She was evaluated by her primary care physician who recommended a stress test. Patient was here to undergo a stress test today and during the test experience chest discomfort and had oxygen dropped to 88%. She was unable to complete the study. She was directed to come into the emergency room and then get admitted for an angiogram. No known history of hypertension, diabetes mellitus, dyslipidemia. Her mother at age 37 from cardiac issues, however it appears those issues were attributed to lupus. Review of Systems General: Reports: 10 or more systems reviewed and unremarkable except in HPI and below Const: Denies: fever(s), chills or body aches Eyes: Denies: change in vision, blurry vision or photophobia ENMT: Reports: hoarseness; Denies: throat pain, enlarged tonsils, odynophagia or nasal congestion Card: Denies: chest pain, palpitations, irregular heart rhythm, edema, swelling of feet/ankles, lightheadedness, pre-syncope, dyspnea on exertion or orthopnea Resp: Denies: dyspnea, productive cough, non-productive cough, wheezing, stridor, pain on inspiration, change in phlegm color, hemoptysis or chest congestion GI: Denies: abdominal pain, nausea, vomiting, hematemesis, coffee ground emesis, dysphagia, heartburn, diarrhea, constipation, GI cramping, change in stool character, hematochezia or melena : Denies: flank pain, difficulty voiding, dysuria, urinary frequency, urinary urgency, urinary hesitancy or hematuria Musc: Denies: neck pain, back pain, extremity pain, joint swelling, joint warmth or deformity Neuro: Denies: headache(s), numbness in extremities, weakness in extremities, sensory changes, difficulty walking, frequent falls, dizziness, vertigo, behavioral changes, Slurred speech present or seizure-like activity Psych: Denies: anxiety, depression, suicidal ideation or homicidal ideation Endo: Denies: polyuria, polydipsia, tired all the time, cold intolerance or hot flashes Miguel/Lymph: Denies: easy bruising or easy bleeding Medications/Allergies Home Medications Medication Instructions Recorded Confirmed Last Taken Type bupropion HCl 100 mg tablet,12 hr 100 mg PO DAILY 12/02/20 07/10/24 07/10/24 History sustained-release (Wellbutrin SR) topiramate 50 mg tablet (Topamax) 50 mg PO BID 12/02/20 07/10/24 07/10/24 History uhkozcaa-wrv-ozpcr ac 400 1 tab PO DAILY 05/17/22 07/10/24 07/10/24 History mcg-calcium carb 500 mg-vit K1 20 mcg tablet (Women's 50 Plus Multivitamin) esomeprazole magnesium 20 mg 20 mg PO DAILY 02/04/23 07/10/24 07/10/24 History capsule,delayed release trazodone 100 mg tablet 100 mg PO DAILY 06/02/24 07/10/24 07/09/24 History aspirin 81 mg tablet,delayed 81 mg PO DAILY 07/10/24 07/10/24 07/10/24 History release (Kourtney Low Dose Aspirin) ferrous sulfate 325 mg (65 mg 325 mg PO DAILY 07/10/24 07/10/24 07/09/24 History iron) tablet (Iron (ferrous sulfate)) fexofenadine 180 mg tablet 180 mg PO DAILY PRN allergies 07/10/24 07/10/24 Unknown History Allergies Allergy/AdvReac Type Severity Reaction Status Date / Time No Known Allergies Allergy Verified 06/02/24 14:02 PFSH Acute PFSH: Medical History Seizures Depression Insomnia Social History Smoking and tobacco/nicotine status: former use of tobacco/nicotine Quit status (tobacco/nicotine): has quit using Second hand smoke exposure: No Alcohol intake: current Alcohol intake frequency: 0-2 Drinks per Day Alcohol type: wine Substance/Drug Use: never Vitals/I&O/Wt Last Vital Signs Temp 97.9 F 07/10/24 10:22 Pulse 76 07/10/24 12:54 Resp 17 07/10/24 12:54 BP 120/80 07/10/24 12:54 Pulse Ox 97 07/10/24 12:54 O2 Del Method Room Air 07/10/24 12:54 Weight last 48 hrs Weight 66.224 kg Weight 65.771 kg Physical Exam Const: COMMON NORMALS: no acute distress, average body habitus, patient oriented x3, no limitations, healthy appearing, alert and well nourished HENMT: COMMON NORMALS: normocephalic and atraumatic HEAD & SCALP: normocephalic and atraumatic Eye: COMMON NORMALS: Equal, round and reactive pupils present, EOMs intact bilaterally, conjunctivae normal and no scleral icterus CONJUNCTIVA: Yes conjunctivae normal PUPIL: Yes Equal, round and reactive pupils present Neck/C-Spine: COMMON NORMALS: no JVD Resp: COMMON NORMALS: normal respiratory effort, No retractions, No use of accessory muscles, clear to auscultation bilaterally and percussion normal AUSCULTATION: clear to auscultation bilaterally PERCUSSION: percussion normal Cardio: COMMON NORMALS: no JVD, regular rate, regular rhythm, S1 normal heart sound present, S2 normal heart sound present, No gallops present (Cardio), No clicks present (Cardio), No murmurs present (Cardio), No rub (Cardio) and Peripheral pulses 2+ throughout RATE: regular rate RHYTHM: regular rhythm HEART SOUNDS: S1 normal heart sound present and S2 normal heart sound present PERIPHERAL PULSES: Peripheral pulses 2+ throughout GI: COMMON NORMALS: Normal to inspection, nondistended, normoactive bowel sounds present, Soft to palpation, non-tender, No hepatosplenomegaly present, no masses and no bruits PALPATION: Yes Soft to palpation and Yes No hepatosplenomegaly present Extremity: COMMON NORMALS: normal to inspection, full ROM, capillary refill normal, no joint enlargement, no clubbing, cyanosis or edema, no calf tenderness and no pedal edema Neuro: COMMON NORMALS: patient oriented x3, CN's II-XII intact bilaterally, moves all extremities, no focal motor deficits, no sensory deficits noted, deep tendon reflexes 2+ bilaterally and gait normal SENSORIUM/ORIENTATION: Yes alert Psych: COMMON NORMALS: mental status grossly normal, Normal thought process present, cooperative, normal affect, speech normal, activity/motor behavior normal, denies hallucinations, denies homicidal ideation and denies suicidal ideation SPEECH: Yes normal speech THOUGHT PROCESS: Normal thought process present Skin: COMMON NORMALS: no rashes or lesions noted, no wounds, turgor normal, no jaundice, no petechiae and no mottling GENERAL SKIN EXAM: no rashes or lesions noted and turgor normal Data 07/10/24 10:27 07/10/24 11:25 Other data: Radiology Impressions Chest X-Ray 07/10/24 10:09 IMPRESSION: Mild pulmonary hyperinflation. No pneumonia. Laboratory Results WBC 5.33 10^3/uL (3.29-11.43) 07/10/24 10: RBC 3.39 10^6/uL (3.85-5.65) L 07/10/24 10:27 Hgb 12.20 g/dL (11.27-16.99) 07/10/24 10:27 Hct 35.7 % (36-47) L 07/10/24 10:27 MCV 105.3 fl (85-98) H 07/10/24 10:27 MCH 36.0 pg (27-33) H 07/10/24 10:27 MCHC 34.2 g/dL (30-55) 07/10/24 10: RDW 11.9 % (12.1-15.1) L 07/10/24 10:27 Plt Count 211 10^3/cmm (157-399) 07/10/24 10:27 MPV 10.7 fL (7.4-10.4) H 07/10/24 10:27 Neut % (Auto) 52.9 % 07/10/24 10:27 Lymph % (Auto) 33.6 % 07/10/24 10: [place] % (Auto) 6.9 % 07/10/24 10:27 Eos % (Auto) 4.9 % 07/10/24 10: Baso % (Auto) 1.3 % 07/10/24 10: Neut # (Auto) 2.82 10^3/uL (1.8-7.7) 07/10/24 10:27 Lymph # (Auto) 1.8 10^3/uL (0.8-4.8) 07/10/24 10:27 [place] # (Auto) 0.4 10^3/uL (0.2-0.9) 07/10/24 10:27 Eos # (Auto) 0.3 10^3/uL (0.0-0.8) 07/10/24 10:27 Baso # (Auto) 0.1 10^3/uL (0.0-0.1) 07/10/24 10:27 Nucleated RBC % (auto) 0 % 07/10/24 10:27 Nucleated RBCs # 0.0 /100WBC 07/10/24 10:27 D-Dimer 0.36 ug/mLFEU (0-0.59) 07/10/24 11:25 Sodium 141 mmol/L (136-145) 07/10/24 11:25 Potassium 4.2 mmol/L (3.5-5.1) 07/10/24 11:25 Chloride 106 mmol/L (98-107) 07/10/24 11:25 Carbon Dioxide 23 mmol/L (22-29) 07/10/24 11:25 Anion Gap 16.2 (5-19) 07/10/24 11:25 BUN 17 mg/dL (8-23) 07/10/24 11:25 Creatinine 0.7 mg/dL (0.5-0.9) 07/10/24 11:25 GFR Calculation 85.4 mL/min (90-130) L 07/10/24 11:25 Glucose 81 mg/dL (65-115) 07/10/24 11:25 Calculated Osmolality 293 mOsm/kg (285-295) 07/10/24 11:25 Calcium 9.3 mg/dL (8.5-10.5) 07/10/24 11:25 Total Bilirubin 0.5 mg/dL (0.15-1.2) 07/10/24 11:25 AST 20 U/L (0-32) 07/10/24 11:25 ALT 10 U/L (0-33) 07/10/24 11:25 Alkaline Phosphatase 90 U/L (35-105) 07/10/24 11:25 Troponin T Baseline 18 ng/L (0-10) H 07/10/24 11:25 Troponin T 120 Minute 36.69 ng/L (0-10) H 07/10/24 14:20 Delta Troponin T 18.69 ABS# (0-10) H* 07/10/24 14:20 Total Protein 6.4 g/dL (6.6-8.7) L 07/10/24 11:25 Albumin 4.4 g/dL (3.5-5.2) 07/10/24 11:25 Globulin 2.0 g/dL (1.3-4.6) 07/10/24 11:25 A&P Assessment and plan (1) NSTEMI (non-ST elevated myocardial infarction): Patient presenting with 5 to 6 weeks of ongoing chest pain, likely ambulatory service representative of angina. Undergoing stress test today when she developed worsening chest pain therefore study needed to be aborted early EKG currently showing sinus rhythm without acute ST-T wave changes Baseline troponin at 18, trending up at 2 hours to 36 with a delta of 18.6 concerning for NSTEMI. Will follow 6-hour trend Start Lovenox 1 mg/kg subcutaneously every 12 hours. Aspirin 324 mg given in the ED, continue with aspirin 81 mg p.o. daily. Atorvastatin 40 mg p.o. daily Check lipid panel, HbA1c screening. N.p.o. postmidnight for planned angiogram tomorrow. Continue home doses of Wellbutrin trazodone and Topamax. Cardiology consulted Attestations Medical Necessity Statement*: Greater than 2 midnight stay is anticipated. Coding Level of Care Code Acute Code for Chg Fwd High MDM includes number and complexity of problems actively addressed during encounter, amount and/or complexity of data reviewed/ordered and described risk of complication, morbidity or mortality of management as documented Diagnoses NSTEMI (non-ST elevated myocardial infarction) I21.4
[2024-07-10 15:14] LABS: Troponin 5 2HR 36.69 ng/L (0-10)
[2024-07-10 15:17] LABS: Troponin 5 2HR Delta 18.69 ABS# (0-10)
[2024-07-10] MEDS: enoxaparin 80 mg/0.8 mL Syringe 70 MG SUBCUT (15:50)
--- NOTE | 2024-07-10 15:55 | ECG_ITS ---
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 Measurements Intervals [place] Rate: 58 P: -7 ID: [id number] QRS: 3 QRSD: 94 T: 23 QT: 439 QTc: 434 Interpretive Statements SINUS BRADYCARDIA POSSIBLE LEFT VENTRICULAR HYPERTROPHY [VOLTAGE CRITERIA PLUS LAE OR QRS WIDENING] NONSPECIFIC T-WAVE ABNORMALITY Compared to ECG 07/10/2024 11:54:04 T-wave abnormality now present Sinus rhythm no longer present Electronically Signed On 07-11-2024 18:39:36 SURVEILLANCE SYSTEM MONITOR by Sidney Alvarado M.D. [email or web address]
[2024-07-10] MEDS: atorvastatin 40 mg Tablet 20 MG PO (17:49)
[2024-07-10 18:51] LABS: Chol HDL Ratio 2.63 mg/dL (0.0-4.40); Cholesterol 189 mg/dL (0-200); HDL Cholesterol 72 mg/dL (60-100); LDL Cholesterol Calculated 97 mg/dL (50-129); LDL HDL Ratio 1.35 RATIO (0.00-3.22); Triglycerides 101 mg/dL (0-150)
[2024-07-10 19:07] LABS: Troponin 5 6HR 22.36 ng/L (0-10); Troponin 5 6HR Delta 4.36 ng/L (0-12)
[2024-07-10] MEDS: trazodone 100 mg Tablet PO (20:01)
[2024-07-10 20:21] LABS: Estmated Average Glucose 85; Hemoglobin A1C 4.6 % (4.0-6.0)
[2024-07-10] MEDS: temazepam 15 mg Capsule PO (22:37)
[2024-07-11] VITALS (13 sets, daily range): BP systolic 101–137; BP diastolic 52–85; PULSE 57–74; RESP 13–21; TEMP 36.6–37.1; O2SAT 96–99
[2024-07-11 06:10] LABS: Basophils # 0.1 10^3/uL (0.0-0.1); Basophils % 1.1 %; Eosinophils # 0.3 10^3/uL (0.0-0.8); Eosinophils % 6.6 %; Hematocrit 35.8 % (36-47); Lymphocytes # 2.1 10^3/uL (0.8-4.8); Lymphocytes % 45.2 %; Mean Corpuscular Hemoglobin 34.8 pg (27-33); Mean Corpuscular Volume 105.6 fl (85-98); Monocytes # 0.4 10^3/uL (0.2-0.9); Monocytes % 8.6 %; Neutrophils # 1.75 10^3/uL (1.8-7.7); Neutrophils % 38.3 %; Nucleated Red Blood Cells % 0 %; Platelet Count 166 10^3/cmm (157-399); Red Blood Count 3.39 10^6/uL (3.85-5.65); Red Cell Distribution Width 11.5 % (12.1-15.1); White Blood Count 4.56 10^3/uL (3.29-11.43)
[2024-07-11] MEDS: sodium chloride 0.9% 1,000 ML 50 ML IV (06:16)
[2024-07-11] MEDS: aspirin 325 mg Tablet PO (06:16)
[2024-07-11] MEDS: diphenhydrAMINE 25 mg Capsule PO (06:16)
--- NOTE | 2024-07-11 06:21 | XACV_ITS ---
Exam Room: [facility] Ht: 163 cm Wt: 67 kg BSA: 1.75 m2 Gender: Female : 1965 Any Known Allergies: No known allergies Exam Priority: Routine Procedure(s): Procedure Description: Diagnostic procedure Procedure Description: PCI procedure Procedure Description: Drug Eluting Coronary Stent Procedure Description: PTCA Procedure Description: Miscellaneous Procedure Description: ACT Procedure Description: Coronary Angiography Diagnostic Cath Status: Urgent Diagnostic Findings * Left Main has no significant disease. * Circumflex has ostial moderate 50-60% stenosis. * Mid Left Anterior Descending: severe 90% stenosis, SEAN: 3 flow. * Right Coronary Artery has no significant disease. * Coronary angiography shows right dominance. PCI Status: Urgent PCI Indication: NSTE - ACS Interventional Findings * Procedure detail: We engaged left main artery with XB3.0 guide catheter. IV heparin was administered to maintain anticoagulation. Runthrough wire was used to cross severe mid LAD stenosis and was placed in the distal vessel. We then predilated the stenosis with 2.5x15mm semicompliant balloon. This was followed by placement of 3.5x18mm Resolute barron stent. We then post dilated the stent with a 3.5x8 mm NC balloon. At this time final angiogram was performed that showed excellent stent expansion, no residual stenosis and SEAN 3 flow. Guidewire and guide catheter were removed. Patient left the lab nurse in a stable condition. * Mid Left Anterior Descendin% stenosis treated with a AB TREK 2.50X15 RX BALLOON, ISATU Castro BARRON 3.5X18 MARY, and ISATU MINAYA EUPHORA RX [id number] BALLOON. Conclusions 1. Severe mid LAD stenosis s/p successful revascularization with 1 stent. 2. Mid Left Anterior Descending was treated with a Balloon, Drug Eluting Stent, and Balloon. Recommendations * Dual antiplatelet therapy with aspirin and plavix. * High intensity statin therapy. * Outpatient cardiology follow up in 2 weeks. Interventional RX Recommendation: PCI w/o planned CABG Diagnostic RX Recommendation: PCI w/o planned CABG Anticoagulation: Heparin Clinical Evaluation EBL: 5mL-10mL Procedural Details Procedure Consent Obtained. Admit Source: In Patient. Current Diagnosis : NSTEMI. Pre-Procedure Time Out. Identified patient by full name and date of as verbalized by the patient/guarantor. Does the consent match the physician's order: Yes. Accurate & Complete Informed Consent: Yes. Inpatient/Outpatient History & Physical on Chart: Yes. If H&P is completed, is and addenduem needed: No; If yes, is the addendum complete: N/A. Visualize and Verify Site with Patient/Guarantor: N/A. Relevant Radiology Images available: N/A. The risks, benefits, and alternatives of sedation and/or procedure were discussed by physician. The patient agrees to continue. Procedure started. [facility] Clinical Fraility Score: 3: Managing Well. Stage Manager Indications: Other. Chest Pain Symptom Assessment: Typical Angina Symptoms. Cardiovascular Instability: No. Correct patient, site and procedure confirmed by cath team. Current diagnosis: NSTEMI. PERRLA. 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 Lungs clear x 5 lobes. IV Site on Arrival: 22 gauge in the right anticubital. IV Fluids: 0.9% NaCl at KVO. 200 mL infused prior to lab nurse. Pre Procedural Pulses: bilateral posterior tibial was Doppled. Pre Procedural Pulses: bilateral dorsalis pedis was Doppled. Pre Procedural Pulses: bilateral radial was 3+. Oxygen started at 3liters/min via nasal canula. right groin was prepped with chloroprep then draped in the usual sterile fashion. right radial was prepped with chloroprep then draped in the usual sterile fashion. Physician notified. Baseline sample Acquired. HR: 60 BPM. Physician arrived. Family updated by MD prior to the start of the procedure. Physician scrubbed in. Immediate Pre-Procedure Time Out. Correct Patient: Yes; Correct Procedure: Yes; Correct Site: Yes; Correct Patient Position: Yes; Correct Supplies: Yes; Dried Flammable Prep: Yes; Blood Products Available: N/A;. Lidocaine 1% infiltrated to the right radial. A 5 zambian TIG catheter in over wire. Multiple views taken of left coronary artery. Catheter redirected to the RCA. Multiple views taken of right coronary artery. Catheter removed over the exchange wire. 6 zambian XB 3 guide catheter was inserted over the wire. Guide seated in the LCS. Runthrough guidewire was advanced through the guide catheter to lesion in the mid LAD. Guidewire advanced across lesion. Inflation number : 1 A AB TREK 2.50X15 RX BALLOON was prepped and advanced across the Mid LAD , then inflated to 10 WHITNEY for 0:17 seconds. Results checked. Balloon out. Inflation Number : 2 A MDT R BARRON 3.5X18 MARY -Lot Number# [id number] was prepped and advanced across the Mid LAD. The stent was deployed at 12 WHITNEY for 0:27 seconds. exp 02/01/2025. Stent balloon out over wire. Results checked. Inflation number : 3 A MDT NC EUPHORA RX [id number] BALLOON was prepped and advanced across the Mid LAD , then inflated to 14 WHITNEY for 0:14 seconds. Inflation number: 4 The MDT NC EUPHORA RX [id number] BALLOON was reinflated across the Mid LAD, to 14 WHITNEY for 0:09 seconds. Inflation number: 5 The MDT NC EUPHORA RX [id number] BALLOON was reinflated across the Mid LAD, to 14 WHITNEY for 0:10 seconds. Balloon out. Results checked. Wire out. Results checked. ACT drawn. Results 325 seconds. Therapeutic limits - pre-heparin administration 90-150 seconds and monitoring heparin during a vascular procedure >250 seconds. Guide catheter out. Physician review of films. Physician scrubbed out. A TR Band was successful obtaining hemostatsis at the Right Radial artery insertion site. TR band placed. Hemostasis obtained. Post Procedure: Pulses reassessed and unchanged. PERRLA. 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 No VTE prophylaxis required. Medication waste: Lidocaine- 18 ml Nitro- 49.6 mg Versed-1.5 mg Fentanyl- 50 mcg. Total IV fluids: 275 mL. Fluoro: 8:07. Contrast type used: Omnipaque 300 mg/mL, 150 mL bottle. [id number]. Post-op diagnosis: Severe Mid LAD stenosis; Status post PCI with one MARY. Complications: None. Estimated blood loss: 5mL-10mL. Responsiveness - Normal response to verbal stimuli; alert and oriented, PERRLA. Airway - Unaffected, no intervention required; spontaneous ventilation. Circulation: W/N/L, pulses unchanged. Nausea/Vomiting: No. Procedure completed. Patient transferred by wheelchair to CPRU. Vital chart was stopped. Access Site Site: Right Radial artery Sheath Size: 6 Fr Hemostasis Method: TR Band Hemostasis Success: Successful Procedure Medications Start: 7:05 AM Stop: 7:05 AM Medication: Versed Amount: 1 mg Route: I.V. Start: 7:05 AM Stop: 7:05 AM Medication: Fentanyl Amount: 50 mcg Route: I.V. Start: 7:15 AM Stop: 7:15 AM Medication: Nitrogylcerin Amount: 200 mcg Route: I.A. Start: 7:16 AM Stop: 7:16 AM Medication: Heparin Amount: 5000 units Route: I.V. Start: 7:22 AM Stop: 7:22 AM Medication: Versed Amount: 0.5 mg Route: I.V. Start: 7:23 AM Stop: 7:23 AM Medication: Nitrogylcerin Amount: 200 mcg Route: I.A. Start: 7:24 AM Stop: 7:24 AM Medication: Versed Amount: 0.5 mg Route: I.V. Start: 7:31 AM Stop: 7:31 AM Medication: Heparin Amount: 1000 units Route: I.V. Start: 7:35 AM Stop: 7:35 AM Medication: Versed Amount: 0.5 mg Route: I.V. I, the attending physician, have reviewed and verified all procedure medications. Yes, all medications given per verbal order History/Risk Factors Hypertension: No Dyslipidemia: Yes Peripheral Arterial Disease (PAD): No Myocardial Infarction (ID): No Obesity: No Tobacco Use: Former Prior Interventions PCI: No CABG: No Valve Surgery: No Report Signatures Finalized by Sidney Alvarado MD on 07/13/2024 10:55 AM
[2024-07-11 06:30] LABS: Alanine Aminotransferase 8 U/L (0-33); Albumin Level 3.8 g/dL (3.5-5.2); Alkaline Phosphatase 82 U/L (35-105); Anion Gap 14.9 (5-19); Aspartate Amino Transferase 18 U/L (0-32); Blood Urea Nitrogen 16 mg/dL (8-23); Calcium 8.8 mg/dL (8.5-10.5); Carbon Dioxide 22 mmol/L (22-29); Chloride 108 mmol/L (98-107); Creatinine Clr Calc Pharmacy 80.6577; Globulin 2.1 g/dL (1.3-4.6); Glomerular Filtration Rate 85.4 mL/min (90-130); Glucose 85 mg/dL (65-115); Osmolality Calculated 292 mOsm/kg (285-295); Potassium 3.9 mmol/L (3.5-5.1); Sodium 141 mmol/L (136-145); Total Bilirubin 0.5 mg/dL (0.15-1.2); Total Protein 5.9 g/dL (6.6-8.7)
--- NOTE | 2024-07-11 07:01 | USCV_ITS ---
Inna Martínez Age: 59 Gender: F : 1965 Exam Date: 07/11/2024 14:47 Ordering Phys: Sidney Alvarado M.D ([email or web address]) Technologist: CT [place]am [place] [facility] [place]: BP: 118 / 79 HR: 52 Rhythm: Sinus Technical Quality: Adequate MEASUREMENTS (Male / Female) Normal Values 2D ECHO LVOT Diameter 2.0 cm LV Ejection Fraction MOD 4C 62.8 % LV Ejection Fraction MOD 2C 63.3 % LV Ejection Fraction 2C AL 65.7 % LA Diameter 2.4 cm RA Systolic Volume 4C AL 36.3 ml RA Systolic Volume 4C MOD 35.8 ml LA Sys Volume AL 38.9 cm cubed LA Sys Volume Index AL 22.4 cm cubed/m squared Aorta at Sinotubular Diameter 2.4 cm IVC Diameter 1.8 cm M-MODE LA Ao Ratio MM 1.3 AV Cusp Separation MM 2.0 cm DOPPLER AV Peak Velocity 154.0 cm/s LVOT Peak Velocity 101.0 cm/s AV Area Cont Eq vti 2.2 cm squared AV Area Cont Eq pk 2.1 cm squared MV Peak Velocity 85.0 cm/s MV Area PHT 3.3 cm squared Mitral E to A Ratio 1.3 TR Peak Velocity 237.0 cm/s TR Peak Gradient 22.5 mmHg PV Peak Velocity 98.0 cm/s FINDINGS Left Ventricle Left ventricle is normal in size. LV systolic function is normal with EF of 55-60%. No regional wall motion abnormalities. Diastolic function is normal Right Ventricle Normal in size and function Right Atrium Normal in size Left Atrium Normal in size Mitral Valve Structurally normal mitral valve. Mild mitral regurgitation Aortic Valve Structurally normal aortic valve. No significant stenosis or regurgitation. Tricuspid Valve Insufficient TR jet to calculate RVSP Pulmonic Valve Not well visualized Pericardium Normal Aorta Normal in size IVC Appears to be normal CONCLUSIONS LV systolic function is normal with EF of 55-60% Diastolic function is normal Mild mitral regurgitation No comparison studies are available. Sidney Alvarado MD (Electronically Signed) Final Date: 11 July 2024 19:00 S
--- NOTE | 2024-07-11 07:07 | W.PM.OPSUD ---
Surgery/Procedure H&P Update DATE OF PROCEDURE: July 11, 2024 DATE H&P PERFORMED: 07/10/24 H&P UPDATE INFORMATION: I have reviewed H&P completed within last 30 days, I have examined patient prior to procedure and No changes to prior documentation PREOP DIAGNOSIS: NSTEMI PRIMARY INDICATION FOR PROCEDURE: NSTEMI PLANNED PROCEDURE: Left heart cath with possible percutaneous coronary intervention PATIENT REASSESSED PRIOR TO SEDATION, WITH NO CHANGE NOTED: Yes PHYSICAL EXAM: alert, oriented x 3, clear to auscultation bilaterally and regular rate & rhythm AIRWAY EVAL/ANESTHESIA PLAN: normal airway, ASA III, Local Anesthesia, Risks, benefits & alternatives of sedation and/or procedure discussed and Patient agrees to continue as planned ADDITIONAL INFORMATION: Moderate sedation
--- NOTE | 2024-07-11 07:59 | PM.PROC ---
Procedure Note: Date of procedure: 07/11/24 Pre-procedure diagnosis: NSTEMI Post-procedure diagnosis: other (Severe mid LAD s/p PCI with 1 stent) Procedure: Left heart cath/PCI: Left main artery is patent. LAD has a severe 90% stenosis in the mid LAD. Left circumflex artery has a 50-60% moderate ostial stenosis. RCA is patent. S/p successful revascularization of mid LAD with 1 stent. Aspirin and plavix for atleast 1 year High intensity statin therapy Performing Provider: Sidney Alvarado Estimated blood loss (mL): 10 Complications: None Condition: stable Disposition: floor Coding Level of Care Code Acute Code for [facility] Fwd
--- NOTE | 2024-07-11 08:00 | SUR.EXTENDED ---
Received the patient back from the slab polisher via bed s/p PCI of the Mid LAD. Patient drowsy but A & 0 x 3. junior financial analyst placed and vital signs obtained. TR band intact to the right wrist. No bleeding or hematoma noted. Palpable radial pulse. Will transfer to room 107 after recovery. Family at bedside. No concerns voiced at this time.
--- NOTE | 2024-07-11 08:03 | P.PN_ITS ---
Subjective 2 Subjective: Patient is doing well. no chest pain. Vitals/I&O/Wt Last Vital Signs Temp 98.6 F 07/11/24 04:00 Pulse 57 L 07/11/24 06:00 Resp 17 07/11/24 04:00 BP 105/59 07/11/24 04:00 Pulse Ox 98 07/11/24 04:00 O2 Del Method Room Air 07/11/24 04:00 07/10/24 07/11/24 07/11/24 22:59 06:59 14:59 Intake Total 220 / 220 360 / 580 Balance 220 / 220 360 / 580 Weight last 48 hrs Weight 148 lb 9.6 oz Weight 146 lb Weight 145 lb Physical Exam 2 Narrative: GENERAL: Patient is alert, awake and oriented x3. [] NECK: No jugular vein distension. [] HEENT: No cyanosis. No icterus. No pallor. [] HEART: Regular S1 and S2. No murmur, rub or gallop. [] LUNGS: Clear to auscultate bilaterally. [] CENTRAL NERVOUS SYSTEM: Grossly nonfocal. [] EXTREMITIES: Lower extremities with no edema bilaterally. Data 07/12/24 03:27 07/12/24 03:27 A&P Assessment and plan (1) NSTEMI (non-ST elevated myocardial infarction): (2) Chest pain: Plan Patient underwent successful revascularization of severe mid LAD stenosis with 1 stent. Has moderate ostial circumflex artery stenosis that will be treated medically at this time. Continue aspirin and Plavix. High intensity statin therapy. Echo shows normal LV systolic function Thank you for involving us with care of this patient. Will continue to follow. Please call with questions. Attestations 2 Medical Necessity Statement*: Care expected to cross 2 midnights. Coding Level of Care Code Acute Code for [facility] Diagnoses NSTEMI (non-ST elevated myocardial infarction) I21.4 Chest pain R07.9
--- NOTE | 2024-07-11 08:30 | SUR.EXTENDED ---
Patient transferred to [facility] via bed with family.
--- NOTE | 2024-07-11 08:39 | PC.NURSE ---
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
[2024-07-11] MEDS: aspirin 81 mg EC Tablet PO (08:58)
[2024-07-11] MEDS: buPROPion SR (12 HR) 100 mg Tablet PO (08:59)
[2024-07-11] MEDS: pantoprazole DR 40 mg Tablet PO (08:59)
[2024-07-11] MEDS: topiramate 25 mg Tablet 50 MG PO ×2 (08:59→17:34)
--- NOTE | 2024-07-11 09:06 | PC.CHAP ---
Pastoral Care Encounter/Spiritual Assessment Type of Contact [] Declined brick and blocker aid labor visit [] Patient/Family/Request visit [] Outpatient visit [] Follow-up visit [] Physician referral [] Code/Alert [X] Routine visit [] Staff referral [] Actively dying [] Patient sleeping [] Family support [] [] Out of room [] Palliative care [] [] Receiving care in room [] Pre-surgical visit [] Trauma [] Long length of stay [] ICU visit [] Other: Relational/Emotional Strength [X] Patient feels connected with others/family/visitors/staff [] Distress [] Loneliness/isolation [] Abandonment Spirituality of Patient [X] Person of Lizet [X] Attends Yarsanism of their Lizet [X] Believes in Prayer [X] Reads Bible or Quaker materials [] There are Spiritual issues to be addressed Exterior Designer Interventions [] Prayer [X] Active listening [X] Non-anxious presence [] Spiritual/emotional support [] Crisis/trauma care [] Spiritual counseling [] Bereavement support [] Provided bereavement packet [] Provided Bible/devotional materials [] Provided toy/stuffed animal, coloring book to patient or family member [] Provided Communion [] Anointing/[place] [] Salvation [] Completed spiritual assessment [] Other: Impact on Illness or Injury [] Angry [] Fearful [] Anxious [] Often cries [] Exhaustion [] Unable to work [] Unable to attend adventism [] Unable to walk/stand [] Unable to read [] Unable to drive [] Unable to eat/drink [] Unable to sleep [] Unable to be with family [] Patient intubated [] Other: Summary Replenishment Buyer in room / Visit Time spent with patient 20 min
--- NOTE | 2024-07-11 13:07 | P.PN_ITS ---
Subjective 2 Subjective: s/p angiogram today with stents to LAD, tolerated the procedure well Medications: Reviewed: Yes Vitals/I&O/Wt Last Vital Signs Temp 97.8 F 07/11/24 11:44 Pulse 62 07/11/24 11:44 Resp 21 H 07/11/24 11:44 BP 112/74 07/11/24 11:44 Pulse Ox 98 07/11/24 11:44 O2 Del Method Room Air 07/11/24 11:44 07/10/24 07/11/24 07/11/24 22:59 06:59 14:59 Intake Total 220 / 220 360 / 580 275 / 275 Output Total 5 / 5 Balance 220 / 220 360 / 580 270 / 270 Weight last 48 hrs Weight 67.404 kg Weight 66.224 kg Weight 65.771 kg Physical Exam 2 Const: COMMON NORMALS: no acute distress, average body habitus, patient oriented x3, no limitations, healthy appearing, alert and well nourished HENMT: COMMON NORMALS: normocephalic and atraumatic HEAD & SCALP: n ormocephalic and atraumatic Eye: COMMON NORMALS: Equal, round and reactive pupils present, EOMs intact bilaterally, conjunctivae normal and no scleral icterus CONJUNCTIVA: Yes conjunctivae normal PUPIL: Yes Equal, round and reactive pupils present Neck/C-Spine: COMMON NORMALS: no JVD Resp: COMMON NORMALS: normal respiratory effort, No retractions, No use of accessory muscles, clear to auscultation bilaterally and percussion normal A USCULTATION: clear to auscultation bilaterally PERCUSSION: percussion normal Cardio: COMMON NORMALS: no JVD, regular rate, regular rhythm, S1 normal heart sound present, S2 normal heart sound present, No gallops present (Cardio), No clicks present (Cardio), No murmurs present (Cardio), No rub (Cardio) and Peripheral pulses 2+ throughout RATE: regular rate RHYTHM: regular rhythm HEART SOUNDS: S1 normal heart sound present and S2 normal heart sound present PERIPHERAL PULSES: Peripheral pulses 2+ throughout GI: COMMON NORMALS: Normal to inspection, nondistended, normoactive bowel sounds present, Soft to palpation, non-tender, No hepatosplenomegaly present, no masses and no bruits PALPATION: Yes Soft to palpation and Yes No hepatosplenomegaly present Extremity: COMMON NORMALS: normal to inspection, full ROM, capillary refill normal, no joint enlargement, no clubbing, cyanosis or edema, no calf tenderness and no pedal edema Neuro: COMMON NORMALS: patient oriented x3, CN's II-XII intact bilaterally, moves all extremities, no focal motor deficits, no sensory deficits noted, deep tendon reflexes 2+ bilaterally and gait normal SENSORIUM/ORIENTATION: Yes alert Psych: COMMON NORMALS: mental status grossly normal, Normal thought process present, cooperative, normal affect, speech normal, activity/motor behavior normal, denies hallucinations, denies homicidal ideation and denies suicidal ideation SPEECH: Yes normal speech THOUGHT PROCESS: Normal thought process present Skin: COMMON NORMALS: no rashes or lesions noted, no wounds, turgor normal, no jaundice, no petechiae and no mottling GENERAL SKIN EXAM: no rashes or lesions noted and turgor normal Data 07/11/24 05:57 07/11/24 05:57 A&P Assessment and plan (1) NSTEMI (non-ST elevated myocardial infarction): Patient presenting with 5 to 6 weeks of ongoing chest pain, 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 Undergoing stress test today when she developed worsening chest pain therefore study needed to be aborted early EKG currently showing sinus rhythm without acute ST-T wave changes Baseline troponin at 18, trending up at 2 hours to 36 with a delta of 18.6 concerning for NSTEMI. Will follow 6-hour trend Start Lovenox 1 mg/kg subcutaneously every 12 hours. Aspirin 324 mg given in the ED, continue with aspirin 81 mg p.o. daily. Atorvastatin 40 mg p.o. daily Check lipid panel, HbA1c screening. N.p.o. postmidnight for planned angiogram tomorrow. Continue home doses of Wellbutrin trazodone and Topamax. Cardiology consulted 07/11/24: Status post stents to LAD earlier this morning. Currently chest pain-free. Tolerated procedure well. Discontinue enoxaparin. Aspirin and Plavix, statins to be continued. Attestations 2 Medical Necessity Statement*: post cath today Coding Level of Care Code Acute Code for [facility] Fwd Moderate MDM includes number and complexity of problems actively addressed during encounter, amount and/or complexity of data reviewed/ordered and described risk of complication, morbidity or mortality of management as documented Diagnoses NSTEMI (non-ST elevated myocardial infarction) I21.4
--- NOTE | 2024-07-11 16:31 | PC.NURSE ---
Patient's right radial TR-band is removed after slowly removing air 2ml's every 30-45 minutes. A dressing of a 2 x 2 and tegaderm is applied. No hematoma is noted. Patient tolerated well.
--- NOTE | 2024-07-11 16:42 | PC.NURSE ---
Patient up and ambulating in the hallway, no shortness of breath or chest pain noted.
[2024-07-11] MEDS: trazodone 100 mg Tablet PO (20:34)
[2024-07-11] MEDS: atorvastatin 40 mg Tablet PO (20:35)
[2024-07-11] MEDS: alum-mag-hydroxide-sime 30 mL UDC PO (20:59)
[2024-07-12] VITALS: BP 101/59; PULSE 71; RESP 12; O2SAT 98
[2024-07-12 03:54] LABS: Basophils % 0.6 %; Eosinophils # 0.3 10^3/uL (0.0-0.8); Eosinophils % 5.6 %; Hematocrit 34.9 % (36-47); Lymphocytes % 42.3 %; Mean Corpuscular Hemoglobin 35.9 pg (27-33); Mean Corpuscular Volume 102.6 fl (85-98); Mean Platelet Volume 9.7 fL (7.4-10.4); Monocytes # 0.4 10^3/uL (0.2-0.9); Monocytes % 8.5 %; Neutrophils % 42.8 %; Nucleated Red Blood Cells % 0 %; Platelet Count 151 10^3/cmm (157-399); Red Cell Distribution Width 11.5 % (12.1-15.1); White Blood Count 4.68 10^3/uL (3.29-11.43)
[2024-07-12 04:00] VITALS: BP 95/55; PULSE 59; RESP 12; TEMP 36.7; O2SAT 96
[2024-07-12 04:20] LABS: Alanine Aminotransferase 8 U/L (0-33); Albumin Level 3.9 g/dL (3.5-5.2); Alkaline Phosphatase 82 U/L (35-105); Aspartate Amino Transferase 18 U/L (0-32); Blood Urea Nitrogen 16 mg/dL (8-23); Calcium 9.2 mg/dL (8.5-10.5); Carbon Dioxide 22 mmol/L (22-29); Chloride 110 mmol/L (98-107); Globulin 2.4 g/dL (1.3-4.6); Glomerular Filtration Rate 85.4 mL/min (90-130); Glucose 89 mg/dL (65-115); Osmolality Calculated 297 mOsm/kg (285-295); Sodium 143 mmol/L (136-145); Total Bilirubin 0.3 mg/dL (0.15-1.2); Total Protein 6.3 g/dL (6.6-8.7)
[2024-07-12 05:44] VITALS: PULSE 56
[2024-07-12] MEDS: topiramate 25 mg Tablet 50 MG PO (08:02)
[2024-07-12] MEDS: aspirin 81 mg EC Tablet PO (08:03)
[2024-07-12] MEDS: clopidogrel 75 mg Tablet PO (08:03)
[2024-07-12] MEDS: atorvastatin 40 mg Tablet PO (08:03)
[2024-07-12] MEDS: pantoprazole DR 40 mg Tablet PO (08:03)
[2024-07-12] MEDS: buPROPion SR (12 HR) 100 mg Tablet PO (08:03)
[2024-07-12 08:06] VITALS: BP 117/59; PULSE 58; RESP 20; TEMP 36.5; O2SAT 98
--- NOTE | 2024-07-12 09:21 | P.PN_ITS ---
Subjective 2 Subjective: Patient is feeling well. No chest pain. Vitals/I&O/Wt Last Vital Signs Temp 97.7 F 07/12/24 08:06 Pulse 58 L 07/12/24 08:06 Resp 20 H 07/12/24 08:06 BP 117/59 07/12/24 08:06 Pulse Ox 98 07/12/24 08:06 O2 Del Method Room Air 07/12/24 08:06 07/11/24 07/12/24 07/12/24 22:59 06:59 14:59 Intake Total 250 / 525 1120 / 1645 400 / 400 Balance 250 / 520 1120 / 1640 400 / 400 Weight last 48 hrs Weight 151 lb 3.2 oz Weight 148 lb 9.6 oz Weight 146 lb Weight 145 lb Physical Exam 2 Narrative: GENERAL: Patient is alert, awake and oriented x3. [] NECK: No jugular vein distension. [] HEENT: No cyanosis. No icterus. No pallor. [] HEART: Regular S1 and S2. No murmur, rub or gallop. [] LUNGS: Clear to auscultate bilaterally. [] CENTRAL NERVOUS SYSTEM: Grossly nonfocal. [] EXTREMITIES: Lower extremities with no edema bilaterally. Data 07/12/24 03:27 07/12/24 03:27 A&P Assessment and plan (1) NSTEMI (non-ST elevated myocardial infarction): (2) Chest pain: Plan Patient underwent successful revascularization of severe mid LAD stenosis with 1 stent. Has moderate ostial circumflex artery stenosis that will be treated medically at this time. Patient is stable from cardiac standpoint. Can be discharged on dual antiplatelet therapy and high intensity statin therapy. Close cardiology follow up. Thank you for involving us care of this patient. Please call with questions. Attestations 2 Medical Necessity Statement*: Care expected to cross 2 midnights. Coding Level of Care Code Acute Code for [facility] Diagnoses NSTEMI (non-ST elevated myocardial infarction) I21.4 Chest pain R07.9
--- NOTE | 2024-07-12 11:04 | P.DS_ITS ---
Discharge Providers Date of Admission: 07/10/24 12:11 Date of Discharge: July 12, 2024 Attending Provider at Admission: Amelie Hernandez MD Attending Provider at Discharge: Amelie Hernandez MD Primary Care Provider: Shanae Guerrero NP Diagnoses at Discharge Discharge Diagnosis (1) NSTEMI (non-ST elevated myocardial infarction): Status: Acute (2) Chest pain: Status: Acute Reason for Visit Reason for Visit: failed stress test sent from [facility] Hospital Course Inna Martínez is a 59 year old female without known significant comorbidities who had been experiencing increasing chest pain for the past 5 to 6 weeks. She presented to the hospital for a stress test on 07/10/2024 however during the stress test she started to develop chest discomfort and became hypoxic. She was unable to complete the study. She was admitted to the hospital. Baseline troponin was at 18, trended up to 36 with a delta of 18.6 at 2 hours, with clinical picture concerning for NSTEMI. She was started on anticoagulation with enoxaparin. The next day she underwent coronary angiogram which showed Left main artery is patent. LAD has a severe 90% stenosis in the mid LAD. Left circumflex artery has a 50-60% moderate ostial stenosis. RCA is patent. S/p successful revascularization of mid LAD with 1 stent. She tolerated the procedure well. No complications. She is being discharged today with recom mendation to continue aspirin and Plavix for at least 1 year alongside of high intensity statins. Physical Exam Narrative: General: No acute distress, AO x 3 HEENT: PERRLA, pupils bilaterally equal and reactive, pallors not present Chest: Normal vesicular breath sounds, no added sounds, equal good air entry bilaterally CVS: S1-S2 regular, no murmurs, no tachycardia, no gallops, no rubs Abdomen: Soft, nontender, no organomegaly, bowel sounds present Neuro: No focal deficits, no facial deformity, AO x3, power 5/5 in all limbs Discharge Data Studies Completed and Pending Completed Studies During Hospitalization Category Date Time Status XR chest 1V portable [id number] Stat Exams 07/10/24 10:09 Completed CV. echo complete* [id number] Routine Ultrasound 07/11/24 07:01 Completed Pending at discharge Category Date Time Status [employer] request for service Routine Exams 07/11/24 06:21 Ordered HEYDI Profile Rheumatology Routine Lab 07/10/24 17:45 Received CMP [Comprehensive Metabolic Panel] AM LABS Lab 07/13/24 04:00 Ordered CMP [Comprehensive Metabolic Panel] AM LABS Lab 07/14/24 04:00 Ordered Complete Blood Count w/Auto AM LABS Lab 07/13/24 04:00 Ordered Complete Blood Count w/Auto AM LABS Lab 07/14/24 04:00 Ordered Radiology Impressions Chest X-Ray 07/10/24 10:09 IMPRESSION: Mild pulmonary hyperinflation. No pneumonia. Laboratory Results WBC 4.68 10^3/uL (3.29-11.43) 07/12/24 03:27 RBC 3.40 10^6/uL (3.85-5.65) L 07/12/24 03:27 Hgb 12.20 g/dL (11.27-16.99) 07/12/24 03:27 Hct 34.9 % (36-47) L 07/12/24 03:27 MCV 102.6 fl (85-98) H 07/12/24 03:27 MCH 35.9 pg (27-33) H 07/12/24 03:27 MCHC 35.0 g/dL (30-55) D 07/12/24 03:27 RDW 11.5 % (12.1-15.1) L 07/12/24 03:27 Plt Count 151 10^3/cmm (157-399) L 07/12/24 03:27 MPV 9.7 fL (7.4-10.4) 07/12/24 03:27 Neut % (Auto) 42.8 % 07/12/24 03:27 Lymph % (Auto) 42.3 % 07/12/24 03:27 [place] % (Auto) 8.5 % 07/12/24 03:27 Eos % (Auto) 5.6 % 07/12/24 03:27 Baso % (Auto) 0.6 % 07/12/24 03:27 Neut # (Auto) 2.00 10^3/uL (1.8-7.7) 07/12/24 03:27 Lymph # (Auto) 2.0 10^3/uL (0.8-4.8) 07/12/24 03:27 [place] # (Auto) 0.4 10^3/uL (0.2-0.9) 07/12/24 03:27 Eos # (Auto) 0.3 10^3/uL (0.0-0.8) 07/12/24 03:27 Baso # (Auto) 0.0 10^3/uL (0.0-0.1) 07/12/24 03:27 Nucleated RBC % (auto) 0 % 07/12/24 03:27 Nucleated RBCs # 0.0 /100WBC 07/12/24 03:27 D-Dimer 0.36 ug/mLFEU (0-0.59) 07/10/24 11:25 Sodium 143 mmol/L (136-145) 07/12/24 03:27 Potassium 4.0 mmol/L (3.5-5.1) 07/12/24 03:27 Chloride 110 mmol/L (98-107) H 07/12/24 03:27 Carbon Dioxide 22 mmol/L (22-29) 07/12/24 03:27 Anion Gap 15.0 (5-19) 07/12/24 03:27 BUN 16 mg/dL (8-23) 07/12/24 03:27 Creatinine 0.7 mg/dL (0.5-0.9) 07/12/24 03:27 GFR Calculation 85.4 mL/min (90-130) L 07/12/24 03:27 Glucose 89 mg/dL (65-115) 07/12/24 03:27 Estimat Average Glucose 85 07/10/24 17:45 Hemoglobin A1c 4.6 % (4.0-6.0) 07/10/24 17:45 Calculated Osmolality 297 mOsm/kg (285-295) H 07/12/24 03:27 Calcium 9.2 mg/dL (8.5-10.5) 07/12/24 03:27 Total Bilirubin 0.3 mg/dL (0.15-1.2) 07/12/24 03:27 AST 18 U/L (0-32) 07/12/24 03:27 ALT 8 U/L (0-33) 07/12/24 03:27 Alkaline Phosphatase 82 U/L (35-105) 07/12/24 03:27 Troponin T Baseline 18 ng/L (0-10) H 07/10/24 11:25 Troponin T 120 Minute 36.69 ng/L (0-10) H 07/10/24 14:20 Delta Troponin T 18.69 ABS# (0-10) H* 07/10/24 14:20 Troponin T Hi Sens 6Hr 22.36 ng/L (0-10) H 07/10/24 17:45 Troponin T Hi Sens 6Hr Delta 4.36 ng/L (0-12) 07/10/24 17:45 Total Protein 6.3 g/dL (6.6-8.7) L 07/12/24 03:27 Albumin 3.9 g/dL (3.5-5.2) 07/12/24 03:27 Globulin 2.4 g/dL (1.3-4.6) 07/12/24 03:27 Triglycerides 101 mg/dL (0-150) 07/10/24 17:45 Cholesterol 189 mg/dL (0-200) 07/10/24 17:45 LDL Cholesterol, Calc 97 mg/dL (50-129) 07/10/24 17:45 HDL Cholesterol 72 mg/dL (60-100) 07/10/24 17:45 LDL/HDL Ratio 1.35 RATIO (0.00-3.22) 07/10/24 17:45 Cholesterol/HDL Ratio 2.63 mg/dL (0.0-4.40) 07/10/24 17:45 Vitals Last Vital Signs Temp 97.7 F 07/12/24 08:06 Pulse 58 L 07/12/24 08:06 Resp 20 H 07/12/24 08:06 BP 117/59 07/12/24 08:06 Pulse Ox 98 07/12/24 08:06 O2 Del Method Room Air 07/12/24 08:06 Discharge Plan Discharge Patient Disposition: Home Condition: Stable Prescriptions: New clopidogrel 75 mg Tablet 75 mg PO DAILY 30 Days Qty: 30 3RF atorvastatin 40 mg Tablet 40 mg PO DAILY 30 Days Qty: 30 0RF Continued topiramate [Topamax] 50 mg tablet 50 mg PO BID bupropion HCl [Wellbutrin SR] 100 mg tablet sustained-release 12 hr 100 mg PO DAILY trazodone 100 mg tablet 100 mg PO DAILY fexofenadine [Roma] 180 mg Tablet 180 mg PO DAILY PRN (Reason: allergies) aspirin [Kourtney Low Dose Aspirin] 81 mg Tablet,Delayed Release (Dr/Ec) 81 mg PO DAILY ferrous sulfate [Iron (ferrous sulfate)] 325 mg (65 mg iron) Tablet 325 mg PO DAILY Women's 50 Plus Multivitamin 400 mcg-500 mg calcium-20 mcg Tablet 1 tab PO DAILY esomeprazole magnesium 20 mg Capsule,Delayed Release(Dr/Ec) 20 mg PO DAILY Discharge Orders: Discharge Order (Routine); Ordered 07/12/24 Ordered By: Amelie Hernandez Referrals: Shanae Guerrero NP [Primary Care Provider] - (Please contat PCP to make follow up appt ) Melissa Escobar FNP [Nurse Practitioner] - 1 week Sidney Alvarado M.D [Physician] - 1 month Discharge Diet: Cardiac Patient Instructions: Chest Pain - Chest Wall, Heart Attack (DC), Heart Catheterization (DC), Opioid Safety Discharge Attestations Time Spent in Discharge Care*: greater than 30 min Quality Metrics Clinical Quality Measures [ Acute Myocardial Infaction { Clinical Trial Participant: No; Contraindication to aspirin: None; Aspirin prescribed; Contraindication to statin: None; Statin prescribed; Contraindication to PCI: None; PCI performed;}] Coding Level of Care Code Acute Code for [facility] Fwd Diagnoses NSTEMI (non-ST elevated myocardial infarction) I21.4 Chest pain R07.9
[2024-07-12 12:00] VITALS: BP 105/69; PULSE 72; RESP 22; TEMP 36.7; O2SAT 96
[2024-07-12 12:21] VITALS: BP 105/69; PULSE 72; RESP 22; TEMP 36.7; O2SAT 96
[2024-07-14 12:10] LABS: COMPLEMENT COMPONENT C3C 105 mg/dL (83-193); COMPLEMENT COMPONENT C4C 28 mg/dL (15-57)
[2024-07-14 13:14] LABS: COMPLEMENT, TOTAL (CH50) 58 U/mL (31-60)
[2024-07-14 17:14] LABS: CENTROMERE B ANTIBODY <1.0 NEG AI (<1.0 NEG); JO-1 ANTIBODY <1.0 NEG AI (<1.0 NEG); RNP ANTIBODY <1.0 NEG AI (<1.0 NEG); SCL-70 ANTIBODY <1.0 NEG AI (<1.0 NEG); SJOGREN'S ANTIBODY (SS-A) <1.0 NEG AI (<1.0 NEG); SM ANTIBODY <1.0 NEG AI (<1.0 NEG); SS-B <1.0 NEG AI (<1.0 NEG)
== END 2024-07-12 13:58 | disposition home or self-care (01) | DRG 322 ==
LOC: ER 12:05 → CSU 18:26
PROVIDERS: Internal Medicine; Admitting Provider Student in an Organized Health Care Education/Training Program; Emergency Provider Emergency Medicine; PCP Nurse Practitioner; Visit Provider Student in an Organized Health Care Education/Training Program
PROC: 027034Z Dilation of Coronary Artery, One Artery with Drug-eluting Intraluminal Device, Percutaneous Approach (ICD-10-PCS; principal; 2024-07-11 07:00)
PROC: 027034Z Dilation of Coronary Artery, One Artery with Drug-eluting Intraluminal Device, Percutaneous Approach (ICD-10-PCS; 2024-07-11 07:00)
DX: I21.4 Non-ST elevation (NSTEMI) myocardial infarction (principal); R09.02 Hypoxemia; F32.A Depression, unspecified; G47.00 Insomnia, unspecified; Z87.891 Personal history of nicotine dependence
CPT/HCPCS: 36415; 71045; 80053; 80061; 83036; 84484; 85025; 85347; 85378; 86160; 86162; 86235; 86255; 86376; 93005; 93306; 93454; 96372; 96374; 96376; 99152; 99153; 99285; C1725; C1769; C1874; C1887; C1894; C9600; J1644; J1650; J2250; J3010; J3490; J7030; Q9967

== ENCOUNTER → 2024-07-29 13:22 | Outpatient (BNVA) | payer MEDICARE, SELFPAY | PROVIDERS: PCP Nurse Practitioner; Visit Provider Nurse Practitioner Family | DX: I25.2 Old myocardial infarction (principal); I21.4 Non-ST elevation (NSTEMI) myocardial infarction; R07.9 Chest pain, unspecified | CPT/HCPCS: 36415; 80048; 85025; 99213 ==

== ENCOUNTER 2024-08-07 12:47 | Outpatient (CLI) | payer MEDICARE, SELFPAY ==
[2024-08-07 13:05] LABS: Erythrocyte Sedimentation Rate < 1 mm/hr (0-15)
[2024-08-07 13:25] LABS: Blood Urea Nitrogen 18 mg/dL (8-23); Calcium 8.9 mg/dL (8.5-10.5); Carbon Dioxide 24 mmol/L (22-29); Chloride 110 mmol/L (98-107); Glucose 93 mg/dL (65-115); Osmolality Calculated 296 mOsm/kg (285-295); Sodium 142 mmol/L (136-145)
== END 2024-08-07 12:48 | disposition home or self-care (01) ==
LOC: LAB 12:49
PROVIDERS: PCP Nurse Practitioner Family; Visit Provider Nurse Practitioner Family
DX: R76.8 Other specified abnormal immunological findings in serum (principal); I21.4 Non-ST elevation (NSTEMI) myocardial infarction
CPT/HCPCS: 36415; 80048; 85651; 86140

== ENCOUNTER 2024-10-13 12:35 | Outpatient (CLI) | payer MEDICARE, SELFPAY ==
--- NOTE | 2024-10-13 12:39 | XR_ITS ---
WS: [id number] XR knee LT 1-2V [id number] REASON FOR EXAM: PAIN IN L KNEE PAIN FINDINGS: No fracture or focal bone lesion. The joint spaces of the knee are intact and relatively well preserved. No soft tissue abnormality. XR/XR knee LT 1-2V [id number] IMPRESSION: No significant abnormality.
== END 2024-10-13 12:36 | disposition home or self-care (01) ==
PROVIDERS: PCP Nurse Practitioner Family; Visit Provider Nurse Practitioner Family
DX: M25.562 Pain in left knee (principal)
CPT/HCPCS: 73560

== ENCOUNTER → 2024-11-10 14:21 | Outpatient (BNVA) | payer MEDICARE, SELFPAY | PROVIDERS: PCP Nurse Practitioner Family; Visit Provider Internal Medicine | DX: I25.10 Atherosclerotic heart disease of native coronary artery without angina pectoris (principal); Z87.891 Personal history of nicotine dependence | CPT/HCPCS: 99214 ==

== ENCOUNTER 2024-11-11 07:51 | Outpatient (CLI) | payer MEDICARE, SELFPAY ==
--- NOTE | 2024-11-11 07:57 | MR_ITS ---
WS: [id number] MRI RIGHT KNEE NONCONTRAST TECHNIQUE: Axial PD, coronal PD fat sat, coronal PD, sagittal PD, and sagittal PD fat-sat images obtained. CLINICAL INFORMATION: INTERNAL DERANGEMENT OF R KNEE/EFFUSION/STIFFNES OF JOINT COMPARISON: None. FINDINGS: High-grade complete tear of the ACL. No normal fibers visualized. Normal PCL. Distal quadriceps and patella tendons are intact. Advanced tricompartmental arthritis. Hypertrophic patella. Normal PCL. Advanced chondromalacia patella. Grade 1-2 injury MCL. Normal LCL. Normal fibula head. Normal biceps femoris. Normal popliteal fossa. Edema within the inferior pole of the patella with small suspected nondisplaced hairline fractures Moderate suprapatellar effusion. Normal lateral meniscus. Advanced degeneration of the medial meniscus. Recommend correlation for prior medial meniscectomy. Near complete loss of the joint space. Grade 3-4 chondromalacia medial lateral joint compartments. MR/MR knee RT wo con* [id number] IMPRESSION: 1. High-grade complete tear of the ACL. No normal fibers visualized. 2. Edema inferior pole of the patella with small suspected nondisplaced hairli ne fractures. No displaced fractures. 3. Advanced tricompartment arthritis with grade 3-4 chondromalacia. 4. Advanced narrowing in the medial joint compartment with [id number] articu lation. 5. Grade IV chondromalacia patella with subchondral edema. 6. Moderate suprapatellar effusion. 7. Normal PCL. 8. Grade 1-2 injury MCL. Outbridge grading: grade IV: full-thickness cartilage loss with underlying bone reactive changes
[2024-11-11 09:14] LABS: Anion Gap 12.8 (5-19); Blood Urea Nitrogen 14 mg/dL (8-23); Calcium 8.9 mg/dL (8.5-10.5); Carbon Dioxide 26 mmol/L (22-29); Chloride 108 mmol/L (98-107); Chol HDL Ratio 1.94 mg/dL (0.0-4.40); Cholesterol 134 mg/dL (0-200); Glucose 67 mg/dL (65-115); HDL Cholesterol 69 mg/dL (60-100); LDL Cholesterol Calculated 45 mg/dL (50-129); LDL HDL Ratio 0.65 RATIO (0.00-3.22); Osmolality Calculated 295 mOsm/kg (285-295); Potassium 3.8 mmol/L (3.5-5.1); Sodium 143 mmol/L (136-145); Triglycerides 99 mg/dL (0-150)
== END 2024-11-11 07:52 | disposition home or self-care (01) ==
LOC: RAD 07:53
PROVIDERS: Absent Provider Internal Medicine; PCP Nurse Practitioner Family; Visit Provider Nurse Practitioner Family
DX: M23.303 Other meniscus derangements, unspecified medial meniscus, right knee (principal); R07.9 Chest pain, unspecified; E78.5 Hyperlipidemia, unspecified; M25.461 Effusion, right knee; M25.60 Stiffness of unspecified joint, not elsewhere classified; S83.511A Sprain of anterior cruciate ligament of right knee, initial encounter; X58.XXXA Exposure to other specified factors, initial encounter; R93.6 Abnormal findings on diagnostic imaging of limbs; M94.261 Chondromalacia, right knee; M17.11 Unilateral primary osteoarthritis, right knee; M89.38 Hypertrophy of bone, other site
CPT/HCPCS: 36415; 73721; 80048; 80061

== ENCOUNTER 2024-11-20 14:13 | Outpatient (CLI) | payer MEDICARE, SELFPAY ==
--- NOTE | 2024-11-20 14:20 | MR_ITS ---
WS: [id number] MRI LEFT KNEE HISTORY: PAIN IN LEFT KNEE COMPARISON: Radiograph 10/14/2019 Anterior cruciate ligament: Complete tear of the ACL. Posterior cruciate ligament: Mild posterior buckling of the PCL. Medial collateral ligament: High-grade tear of the proximal MCL. Fluid on both sides of the MCL and interruption of the ligament. Posterior lateral corner structures: Intact. Medial menisci: Mild intrasubstance degeneration in the posterior horn towards the meniscal root. No tear identified. Lateral meniscus: Blunting free edge of the posterior horn consistent with a tear. Small caliber posterior horn. Extensor mechanism: Distal quadriceps tendon and patellar tendons are intact. Fluid and soft tissue: Small suprapatellar joint effusion. No Pacheco's cyst. Osseous and articular structures: Patellofemoral compartment: Mild narrowing patellofemoral joint space. No significant loss of cartilage. There is marrow edema in the inferior half of the patella. Medial compartment: Mild narrowing of the medial compartment. Mild diffuse thinning and fissuring of the cartilage. Lateral compartment: Minimal narrowing. Mild diffuse chondromalacia. There is focal marrow edema involving the anterior central tibial plateau. MR/MR knee LT con* [id number] IMPRESSION: 1. Complete ACL tear. 2. High-grade tear proximal MCL. 3. Marrow edema in the lower half of the patella and also within the anterior tibial plateau. 4. Blunting free edge posterior horn lateral meniscus consistent with a tear. 5. Mild tricompartment joint space narrowing with thinning of the cartilage.
== END 2024-11-20 14:14 | disposition home or self-care (01) ==
LOC: RAD 14:14
PROVIDERS: PCP Nurse Practitioner Family; Visit Provider Nurse Practitioner Family
DX: S83.512A Sprain of anterior cruciate ligament of left knee, initial encounter (principal); S83.412A Sprain of medial collateral ligament of left knee, initial encounter; X58.XXXA Exposure to other specified factors, initial encounter; R93.6 Abnormal findings on diagnostic imaging of limbs; M25.462 Effusion, left knee; M94.262 Chondromalacia, left knee
CPT/HCPCS: 73721

== ENCOUNTER → 2024-11-24 13:24 | Outpatient (BNVA) | payer MEDICARE, SELFPAY | PROVIDERS: PCP Nurse Practitioner Family; Visit Provider Specialist | DX: M17.11 Unilateral primary osteoarthritis, right knee (principal); G89.29 Other chronic pain | CPT/HCPCS: 73560; 73565; 99204 ==

== ENCOUNTER → 2024-11-26 13:36 | Outpatient (BNVA) | payer MEDICARE, SELFPAY | PROVIDERS: PCP Nurse Practitioner Family; Visit Provider Specialist | DX: M17.12 Unilateral primary osteoarthritis, left knee (principal); G89.29 Other chronic pain; Z46.89 Encounter for fitting and adjustment of other specified devices | CPT/HCPCS: 73560; 73565 ==

== ENCOUNTER 2024-11-26 15:26 | Outpatient (CLI) | payer MEDICARE, SELFPAY | END 2024-11-26 15:27 | disposition home or self-care (01) | LOC: SPT 15:26 | PROVIDERS: PCP Nurse Practitioner Family; Visit Provider Specialist | DX: Z46.89 Encounter for fitting and adjustment of other specified devices (principal); S83.419D Sprain of medial collateral ligament of unspecified knee, subsequent encounter; X58.XXXD Exposure to other specified factors, subsequent encounter | CPT/HCPCS: L1812 ==

== ENCOUNTER → 2025-01-07 07:45 | Outpatient (BNVA) | payer MEDICARE, SELFPAY | PROVIDERS: PCP Nurse Practitioner Family; Visit Provider Specialist | DX: M17.0 Bilateral primary osteoarthritis of knee (principal); G89.29 Other chronic pain | CPT/HCPCS: 73560; 73565; 99214 ==

== ENCOUNTER 2025-01-20 11:44 | Emergency (ER) | payer MEDICARE, SELFPAY ==
[2025-01-20] VITALS (7 sets, daily range): BP systolic 106–162; BP diastolic 75–88; PULSE 61–76; RESP 13–18; TEMP 36.7; O2SAT 96–100; BMI 24.0
--- NOTE | 2025-01-20 11:55 | ECG_ITS ---
[facility] Date: 2025-[facility]20 Pat Name: Inna Martínez Department: Room: Gender: Female Chrome Tanner: : 1965 Requested By: Coral Thomas Order Number: [id number] Reading MD: Sully Guerra M.D. Measurements Intervals [place] Rate: 66 P: 81 MS: 157 QRS: 72 QRSD: 87 T: 65 QT: 378 QTc: 398 Interpretive Statements SINUS RHYTHM Compared to ECG 07/10/2024 15:55:29 Sinus bradycardia no longer present T-wave abnormality no longer present Electronically Signed On 01-20-2025 17:15:39 CDT by Sully Guerra M.D. [email or web address]
--- NOTE | 2025-01-20 12:24 | XR_ITS ---
WS: [id number] Exam: XR chest 1V portable [id number] Date/Time of Exam: 01/20/2025 12:24 PM Reason For Exam: chest pain Comparison 07/10/2024. Lungs are hyperinflated and clear. Normal cardiomediastinal silhouette. Costophrenic angles are clear. Old bilateral rib fractures. XR/XR chest 1V portable [id number] IMPRESSION: 1. Pulmonary hyperinflation. No acute finding.
[2025-01-20 13:03] LABS: Hematocrit 39.1 % (36-47); Hemoglobin 13.00 g/dL (11.27-16.99); Mean Corpuscular HGB Conc 33.2 g/dL (30-55); Mean Corpuscular Hemoglobin 35.2 pg (27-33); Mean Corpuscular Volume 106.0 fl (85-98); Nucleated Red Blood Cells % 0 %; Platelet Count 198 10^3/cmm (157-399); Red Blood Count 3.69 10^6/uL (3.85-5.65); White Blood Count 5.84 10^3/uL (3.29-11.43)
[2025-01-20 13:11] LABS: INR 0.91 (0.8-1.2); Prothrombin Time 12.90 SECONDS (12.1-14.9)
[2025-01-20 13:16] LABS: Troponin(5th) Baseline < 6 ng/L (0-10)
[2025-01-20 13:22] LABS: Alanine Aminotransferase 91 U/L (0-33); Albumin Level 4.5 g/dL (3.5-5.2); Alkaline Phosphatase 440 U/L (35-105); Aspartate Amino Transferase 112 U/L (0-32); Blood Urea Nitrogen 19 mg/dL (8-23); Calcium 10.3 mg/dL (8.5-10.5); Carbon Dioxide 23 mmol/L (22-29); Chloride 101 mmol/L (98-107); Creatinine Clr Calc Pharmacy 78.5524; Globulin 2.6 g/dL (1.3-4.6); Glucose 78 mg/dL (65-115); Lipase 39 U/L (13-60); Osmolality Calculated 291 mOsm/kg (285-295); Sodium 140 mmol/L (136-145); Total Protein 7.1 g/dL (6.6-8.7)
[2025-01-20 13:24] LABS: Anion Gap 20.3 (5-19); Potassium 4.3 mmol/L (3.5-5.1)
--- NOTE | 2025-01-20 14:20 | ECG_ITS ---
[email or web address]: [facility]25-01[facility]20 Pat Name: Inna Martínez Department: Room: Gender: Female Edge Drummer: : 1965 Requested By: Coral Thomas Order Number: [id number] Fanny MD: Sully Guerra M.D. Measurements Intervals [place] Rate: 58 P: 73 PA: 170 QRS: 70 QRSD: 90 T: 64 QT: 432 QTc: 426 Interpretive Statements SINUS BRADYCARDIA POSSIBLE RIGHT VENTRICULAR CONDUCTION DELAY [RSR (QR) IN V1/V2] Compared to ECG 01/20/2025 11:55:07 Sinus rhythm no longer present Electronically Signed On 01-20-2025 17:18:08 CDT by Sully Guerra M.D. [id number]
--- NOTE | 2025-01-20 14:20 | W.ED.SOB ---
HPI - SOB/Dyspnea General: Chief Complaint: Shortness of Breath/Dyspnea Stated Complaint: chest pressure Time Seen by Provider: 01/20/25 14:19 History of Present Illness: HPI Narrative: 59-year-old female presents emergency room planing of chest pressure and some shortness of breath. She has a history of coronary disease had stents placed in June 2024. She has noticed increased shortness of breath and mild chest pressure associated with activity over the last several days. No fever sweats chills no abdominal pain or change. Associated symptoms: Deny abdominal pain, chest pain or fever(s) Related Data Home Medications ?Medication ?Instructions ?Recorded ?Confirmed bupropion HCl 100 mg tablet,12 hr 100 mg PO DAILY 12/02/20 01/07/25 sustained-release (Wellbutrin SR) topiramate 50 mg tablet (Topamax) 50 mg PO BID 12/02/20 01/07/25 azdtukvz-emt-yjhti ac 400 1 tab PO DAILY 05/17/22 01/07/25 mcg-calcium carb 500 mg-vit K1 20 mcg tablet (Women's 50 Plus Multivitamin) esomeprazole magnesium 20 mg 20 mg PO DAILY 02/04/23 01/07/25 capsule,delayed release trazodone 100 mg tablet 100 mg PO DAILY 06/02/24 01/07/25 aspirin 81 mg tablet,delayed 81 mg PO DAILY 07/10/24 01/07/25 release (Kourtney Low Dose Aspirin) ferrous sulfate 325 mg (65 mg 325 mg PO DAILY 07/10/24 01/07/25 iron) tablet (Iron (ferrous sulfate)) fexofenadine 180 mg tablet 180 mg PO DAILY PRN allergies 07/10/24 01/07/25 Previous Rx's ?Medication ?Instructions ?Recorded clopidogrel 75 mg tablet 75 mg PO DAILY #90 tabs 10/01/24 atorvastatin 40 mg tablet (Lipitor) 40 mg PO DAILY #90 tabs 10/02/24 Hinged Knee Brace, bilateral #1 ea 11/26/24 celecoxib 200 mg capsule See Rx Instructions .Route 01/07/25 .COMPLEX #30 caps Allergies Allergy/AdvReac Type Severity Reaction Status Date / Time No Known Allergies Allergy Verified 01/20/25 11:59 Review of Systems Const: Denies: fever(s) or chills Card: Denies: chest pain Resp: Denies: dyspnea GI: Denies: abdominal pain : Denies: dysuria, urinary frequency or urinary urgency Musc: Denies: neck pain or back pain Skin/Breast: Denies: rash PFSH ED PFSH: Medical History Seizures Depression Insomnia Social History Smoking and tobacco/nicotine status: former use of tobacco/nicotine Quit status (tobacco/nicotine): has quit using Second hand smoke exposure: No Alcohol intake: current Alcohol intake frequency: 0-2 Drinks per Day Alcohol type: wine Substance/Drug Use: never Physical Exam Const: COMMON NORMALS: no acute distress GENERAL APPEARANCE: cooperative and comfortable ORIENTATION/CONSCIOUSNESS: Yes awake, Yes oriented to person, Yes oriented to place and Yes oriented to time HENMT: COMMON NORMALS: normocephalic, atraumatic and hearing grossly normal bilaterally HEAD & SCALP: normocephalic and atraumatic Resp: COMMON NORMALS: normal respiratory effort, No retractions, No use of accessory muscles and clear to auscultation bilaterally AUSCULTATION: clear to auscultation bilaterally Cardio: COMMON NORMALS: regular rate, regular rhythm and No murmurs present (Cardio) RATE: regular rate RHYTHM: regular rhythm GI: COMMON NORMALS: Soft to palpation and No hepatosplenomegaly present AUSCULTATION: Yes normoactive bowel sounds PALPATION: Yes Soft to palpation, No Tenderness to palpation present (GI), No Guarding due to palpation present (GI) and Yes No hepatosplenomegaly present Extremity: COMMON NORMALS: normal to inspection, capillary refill normal, no clubbing, cyanosis or edema, no calf tenderness and no pedal edema Neuro: SENSORIUM/ORIENTATION: Yes oriented to person, Yes oriented to place and Yes oriented to time Skin: COMMON NORMALS: no rashes or lesions noted GENERAL SKIN EXAM: no rashes or lesions noted Course Vital Signs: Vital signs: Vital Signs Temperature 98.1 F 01/20/25 11:51 Pulse Rate 76 01/20/25 15:30 Respiratory Rate 18 01/20/25 15:30 Blood Pressure 106/85 01/20/25 15:30 Pulse Oximetry 99 01/20/25 15:30 Oxygen Delivery Me thod Room Air 01/20/25 11:51 MDM - SOB/Dyspnea Medical Decision Making Cardiac enzymes and EKG negative there is no acute changes at this time. Reviewing her cardiac cath showed a circumflex lesion moderate 50 to 60% severe stenosis mid LAD. Mid LAD was treated. Her RCA was not. Will have her follow-up with cardiology to see if they wish to pursue stress testing return if she has further problems. Medical Records Diagnostic Cath Status: Urgent Diagnostic Findings * Left Main has no significant disease. * Circumflex has ostial moderate 50-60% stenosis. * Mid Left Anterior Descending: severe 90% stenosis, SEAN: 3 flow. * Right Coronary Artery has no significant disease. * Coronary angiography shows right dominance. PCI Status: Urgent PCI Indication: NSTE - ACS Interventional Findings * Procedure detail: We engaged left main artery with XB3.0 guide catheter. IV heparin was administered to maintain anticoagulation. Runthrough wire was used to cross severe mid LAD stenosis and was placed in the distal vessel. We then predilated the stenosis with 2.5x15mm semicompliant balloon. This was followed by placement of 3.5x18mm Resolute barron stent. We then post dilated the stent with a 3.5x8 mm NC balloon. At this time final angiogram was performed that showed excellent stent expansion, no residual stenosis and SEAN 3 flow. Guidewire and guide catheter were removed. Patient left the dye lab technician in a stable condition. * Mid Left Anterior Descendin% stenosis treated with a AB TREK 2.50X15 RX BALLOON, MDT R BARRON 3.5X18 MARY, and MDT NC EUPHORA RX [id number] BALLOON Lab Data 01/20/25 12:44 01/20/25 12:44 Labs/Radiology: Radiology Impressions Chest X-Ray 01/20/25 12:24 IMPRESSION: 1. Pulmonary hyperinflation. No acute finding. Abdomen Ultrasound 01/20/25 14:34 IMPRESSION: 1. Unremarkable RIGHT abdominal sonogram. 2. The gallbladder is surgically absent. Laboratory Results WBC 5.84 10^3/uL (3.29-11.43) 01/20/25 12:44 RBC 3.69 10^6/uL (3.85-5.65) L 01/20/25 12:44 Hgb 13.00 g/dL (11.27-16.99) 01/20/25 12:44 Hct 39.1 % (36-47) 01/20/25 12:44 MCV 106.0 fl (85-98) H 01/20/25 12:44 MCH 35.2 pg (27-33) H 01/20/25 12:44 MCHC 33.2 g/dL (30-55) 01/20/25 12:44 RDW 12.2 % (12.1-15.1) 01/20/25 12:44 Plt Count 198 10^3/cmm (157-399) 01/20/25 12:44 MPV 9.9 fL (7.4-10.4) 01/20/25 12:44 Neut % (Auto) 66.0 % 01/20/25 12:44 Lymph % (Auto) 22.8 % 01/20/25 12:44 [place] % (Auto) 6.7 % 01/20/25 12:44 Eos % (Auto) 3.8 % 01/20/25 12:44 Baso % (Auto) 0.5 % 01/20/25 12:44 Neut # (Auto) 3.86 10^3/uL (1.8-7.7) 01/20/25 12:44 Lymph # (Auto) 1.3 10^3/uL (0.8-4.8) 01/20/25 12:44 [place] # (Auto) 0.4 10^3/uL (0.2-0.9) 01/20/25 12:44 Eos # (Auto) 0.2 10^3/uL (0.0-0.8) 01/20/25 12:44 Baso # (Auto) 0.0 10^3/uL (0.0-0.1) 01/20/25 12:44 Nucleated RBC % (auto) 0 % 01/20/25 12:44 Nucleated RBCs # 0.0 /100WBC 01/20/25 12:44 PT 12.90 SECONDS (12.1-14.9) 01/20/25 12:44 INR 0.91 (0.8-1.2) 01/20/25 12:44 Sodium 140 mmol/L (136-145) 01/20/25 12:44 Potassium 4.3 mmol/L (3.5-5.1) 01/20/25 12:44 Chloride 101 mmol/L (98-107) 01/20/25 12:44 Carbon Dioxide 23 mmol/L (22-29) 01/20/25 12:44 Anion Gap 20.3 (5-19) H 01/20/25 12:44 BUN 19 mg/dL (8-23) 01/20/25 12:44 Creatinine 0.7 mg/dL (0.5-0.9) 01/20/25 12:44 GFR Calculation 85.4 mL/min (90-130) L 01/20/25 12:44 Glucose 78 mg/dL (65-115) 01/20/25 12:44 Calculated Osmolality 291 mOsm/kg (285-295) 01/20/25 12:44 Calcium 10.3 mg/dL (8.5-10.5) 01/20/25 12:44 Total Bilirubin 0.6 mg/dL (0.15-1.2) 01/20/25 12:44 AST 112 U/L (0-32) H 01/20/25 12:44 ALT 91 U/L (0-33) H 01/20/25 12:44 Alkaline Phosphatase 440 U/L (35-105) H 01/20/25 12:44 Troponin T Baseline < 6 ng/L (0-10) 01/20/25 12:44 Troponin T 120 Minute < 6.0 ng/L (0-10) 01/20/25 14:26 Delta Troponin T 0 ABS# (0-10) 01/20/25 14:26 Total Protein 7.1 g/dL (6.6-8.7) 01/20/25 12:44 Albumin 4.5 g/dL (3.5-5.2) 01/20/25 12:44 Globulin 2.6 g/dL (1.3-4.6) 01/20/25 12:44 Lipase 39 U/L (13-60) 01/20/25 12:44 All radiology interpretation(s) finalized by discharge EKG Data EKG 1: Interpretation: HLA-A 2024 11:55 AM EKG shows a normal sinus rhythm rate of 66 UT interval 157 [address]Tc [address] elevation. Small Q waves in 2 3 aVF and lateral leads.No significant changes from 07/10/2024 EKG 2: Interpretation: EKG 01/20/2025 1420 sinus bradycardia rate of 58 QT 432 UT interval [address] changes noted no changes from previous EKGs reviewed. There is still small Q waves in 2 3 aVF lateral leads. Discharge Plan Discharge Patient Disposition: Home Clinical Impression: Chest pain, Elevated liver enzymes Condition: Stable Prescriptions: No Action topiramate [Topamax] 50 mg tablet 50 mg PO BID bupropion HCl [Wellbutrin SR] 100 mg tablet sustained-release 12 hr 100 mg PO DAILY trazodone 100 mg tablet 100 mg PO DAILY celecoxib 200 mg capsule See Rx Instructions .ROUTE .COMPLEX Qty: 30 1RF Dose Instruction: TAKE ONE CAPSULE BY MOUTH DAILY Rx Instructions: TAKE ONE CAPSULE BY MOUTH DAILY (DME) Hinged Knee Brace, bilateral See Rx Instructions .Route .MEDSUPPLY Qty: 1 0RF Rx Instructions: As directed clopidogrel 75 mg tablet 75 mg PO DAILY Qty: 90 3RF atorvastatin [Lipitor] 40 mg tablet 40 mg PO DAILY Qty: 90 3RF fexofenadine 180 mg Tablet 180 mg PO DAILY PRN (Reason: allergies) aspirin [Kourtney Low Dose Aspirin] 81 mg Tablet,Delayed Release (Dr/Ec) 81 mg PO DAILY ferrous sulfate [Iron (ferrous sulfate)] 325 mg (65 mg iron) Tablet 325 mg PO DAILY Women's 50 Plus Multivitamin 400 mcg-500 mg calcium-20 mcg Tablet 1 tab PO DAILY esomeprazole magnesium 20 mg Capsule,Delayed Release(Dr/Ec) 20 mg PO DAILY Discharge Orders: Discharge ED (Routine); Ordered 01/20/25 Ordered By: Jaden Stoner Referrals: Leo,Brittani, TOWER TRUCK DRIVER [Primary Care Provider, Nurse Practitioner] Discharge Diet: Usual diet Discharge Activity: Increase activity as tolerated Patient Instructions: Opioid Safety, Pain Management, Patient Portal & Jorge Instructions Activity Restrictions/Additional Instructions: Thank you [facility] your healthcare needs today. It is very important that you follow up as instructed or that you return to the Emergency Department should you have concerns or if your condition changes or worsens in any way. You are seen in the emergency room with episode of chest discomfort. Your cardiac enzymes and EKG did not show any acute changes. There is no sign of acute cardiac event. Will discharge you home continue your current medications recommend you follow-up with cardiology. You were noted to have mild elevation of your liver enzymes ultrasound of your liver and common bile duct were normal. Follow-up with your primary care doctor to have your liver enzymes rechecked in approximately 1 month. Return to the emergency room for further episodes of chest pain. Print Language: Persian Coding Level of Care Code ED [employer] Operation for Zoey Faust
--- NOTE | 2025-01-20 14:34 | US_ITS ---
WS: [id number] Exam: US abdomen limited [id number] Date/Time of Exam: 01/20/2025 3:21 PM Reason For Exam: elevated LFTs The liver is unremarkable. The gallbladder is surgically absent. The common bile duct measures 4 mm in greatest diameter. The IVC is unremarkable in appearance. Normal RIGHT kidney noted. The RIGHT kidney measures 8.8 x 9 x 3.8 cm. Hepatopetal flow in the portal vein. No mass or free fluid in the RIGHT abdomen. The abdominal aorta is normal in caliber. US/US abdomen limited [id number] IMPRESSION: 1. Unremarkable RIGHT abdominal sonogram. 2. The gallbladder is surgically absent.
[2025-01-20 14:54] LABS: Troponin 5 2HR < 6.0 ng/L (0-10); Troponin 5 2HR Delta 0 ABS# (0-10)
--- NOTE | 2025-01-21 11:20 | PC.NURSE ---
cardiology referral sent.
== END 2025-01-20 16:26 | disposition home or self-care (01) ==
PROVIDERS: Emergency Medicine; Emergency Provider Family Medicine; PCP Nurse Practitioner Family
DX: R07.9 Chest pain, unspecified (principal); R94.5 Abnormal results of liver function studies; Z79.02 Long term (current) use of antithrombotics/antiplatelets; Z79.82 Long term (current) use of aspirin; Z87.891 Personal history of nicotine dependence
CPT/HCPCS: 36415; 71045; 76705; 80053; 83690; 84484; 85025; 85610; 93005; 99285

== ENCOUNTER → 2025-01-22 10:32 | Outpatient (BNVA) | payer MEDICARE, SELFPAY | PROVIDERS: PCP Nurse Practitioner Family; Visit Provider Nurse Practitioner Family | DX: I25.110 Atherosclerotic heart disease of native coronary artery with unstable angina pectoris (principal); Z79.02 Long term (current) use of antithrombotics/antiplatelets; Z79.82 Long term (current) use of aspirin; Z87.891 Personal history of nicotine dependence; I25.2 Old myocardial infarction; R07.9 Chest pain, unspecified; I25.10 Atherosclerotic heart disease of native coronary artery without angina pectoris | CPT/HCPCS: 36415; 80048; 85025; 85610; 99214 ==

== ENCOUNTER 2025-01-26 10:37 | Observation (INO) | payer MEDICARE, SELFPAY ==
[2025-01-26] VITALS (37 sets, daily range): BP systolic 98–146; BP diastolic 59–88; PULSE 59–79; RESP 11–30; TEMP 36.4–36.9; O2SAT 97–100; BMI 24.0
--- NOTE | 2025-01-26 07:30 | XACV_ITS ---
Exam Room: 2 Ht: 163 cm Wt: 64 kg BSA: 1.70 m2 Gender: Female : 1965 Any Known Allergies: No known allergies Exam Priority: Routine Procedure(s): Procedure Description: Diagnostic procedure Procedure Description: PCI procedure Procedure Description: Coronary IVUS Procedure Description: Drug Eluting Coronary Stent Procedure Description: PTCA Procedure Description: Miscellaneous Procedure Description: ACT Procedure Description: Coronary Angiography Procedure Description: Pressure Wire Diagnostic Cath Status: Elective Diagnostic Findings * INDICATION: Worsening angina. * Left Main has mild luminal irregularities. * Proximal Left Anterior Descending: obstructive 70-80% stenosis, SEAN: 3 flow. Prior stent is patent. * Ostial to proximal Circumflex: Moderate 60-70% stenosis, SEAN: 3 flow. * Right Coronary Artery has no disease. * Coronary angiography shows right dominance. PCI Status: Elective PCI Indication: Other Interventional Findings * Proximal Left Anterior Descendin-80% stenosis treated with a AB TREK 3.50X15 RX BALLOON, ISATU Castro CASSIE 3.5X18 MARY, and ISATU MINAYA EUPHORA RX [id number] BALLOON. 0% residual stenosis, SEAN: 3 flow. * Procedure detail: We engaged left main artery with XB 3.0 guide catheter. IV heparin was administered to maintain anticoagulation. iFR of LAD was performed that was significantly abnormal with a value of 0.84. We then performed IFR of circumflex artery that was borderline abnormal at 0.88. We then proceeded with PCI of LAD. Proximal LAD stenosis was predilated with 3.5 x 15 mm semicompliant balloon. This was followed by placement of 3.5 x 18 mm resolute Cassie drug-eluting stent. We postdilated the stent with a 4.0 x 20 mm NC balloon at high pressure. At this time final angiogram showed excellent stent expansion and no residual stenosis. We then wired left circumflex artery with run-through wire. Given borderline abnormal IFR, medium size of left circumflex artery and ostial location of the left circumflex artery stenosis we decided to only balloon the vessel. Ballooning was performed with 2.5 x 12 mm semicompliant balloon. This improved stenosis. At this time final angiogram was performed. Patient left the Substation Operator Helper Generation in a stable condition.. * Proximal Circumflex: 70% stenosis treated with a AB TREK 2.50X12 RX BALLOON. 0% residual stenosis, SEAN: 3 flow. Conclusions 1. Severe proximal LAD stenosis status post successful revascularization with 1 stent. Moderate to severe ostial circumflex artery stenosis status post balloon angioplasty. 2. Proximal Left Anterior Descending was treated with a Balloon, Drug Eluting Stent, and Balloon. 3. Proximal Circumflex was treated with a Balloon. Recommendations * Dual antiplatelet therapy with aspirin and plavix. * Outpatient cardiology follow up in 2 weeks. Interventional RX Recommendation: PCI w/o planned CABG Diagnostic RX Recommendation: PCI w/o planned CABG Anticoagulation: Heparin Pressures Phase:Rest AO : 103 / 64 ( 81 ) @ 9:49:00 AM 96 / 59 ( 77 ) @ 10:16:00 AM 129 / 64 ( 91 ) @ 10:24:00 AM 117 / 72 ( 93 ) @ 10:33:00 AM Clinical Evaluation EBL: 5mL-10mL Procedural Details Procedure Consent Obtained. Pre-Procedure Time Out. Identified patient by full name and date of as verbalized by the patient/guarantor. Does the consent match the physician's order: Yes. Accurate & Complete Informed Consent: Yes. Inpatient/Outpatient History & Physical on Chart: Yes. If H&P is completed, is and addenduem needed: No. Visualize and Verify Site with Patient/Guarantor: N/A. Relevant Radiology Images available: Yes. The risks, benefits, and alternatives of sedation and/or procedure were discussed by physician. The patient agrees to continue. Procedure started. [facility] Clinical Fraility Score: 3: Managing Well. Substation Operator Helper Generation Indications: Suspected CAD. Chest Pain Symptom Assessment: Typical Angina Symptoms. Cardiovascular Instability: No. Correct patient, site and procedure confirmed by cath team. PERRLA. Strong, equal hand marine engine mechanic bilaterally. Lungs clear x 5 lobes. IV Site on Arrival: 20 gauge in the left anticubital. IV Fluids: 0.9% NaCl at KVO. 0 mL infused prior to laboratory animal caretaker. Pre Procedural Pulses: bilateral dorsalis pedis was 1+. Pre Procedural Pulses: bilateral posterior tibial was Doppled. Pre Procedural Pulses: bilateral radial was 1+. Oxygen started at 2liters/min via nasal canula. right groin was prepped with chloroprep then draped in the usual sterile fashion. right radial was prepped with chloroprep then draped in the usual sterile fashion. Physician notified. Baseline sample Acquired. HR: 68 BPM. Patient's family in CPRU room #3. Dr. Alvarado will update at the completion of the procedure. Equipment: 6F - Radial. Cardiac Cath Pack. ACIST Manifold Kit Model BT 2000. Heparinized Saline (2 units/mL), 1000 mL bag. Physician arrived. Physician scrubbed in. Immediate Pre-Procedure Time Out. Correct Patient: Yes; Correct Procedure: Yes; Correct Site: Yes; Correct Patient Position: Yes; Correct Supplies: Yes; Dried Flammable Prep: Yes; Blood Products Available: N/A;. Lidocaine 1% infiltrated to the right radial. Arterial access obtained using ultrasound guidance. A 5 luxembourgish TIG catheter in over the exchange J wire. Baseline sample Acquired. HR: 68 BPM. Multiple views taken of left coronary artery. Catheter redirected to the RCA. Multiple views taken of right coronary artery. Catheter removed over the exchange J wire. 6 luxembourgish XB 3 guide catheter was inserted over the exchange J wire. FFR guidewire was advanced through the guide catheter to lesion in the ostial Circ. iFR spot of the ostial CX = 0.88 with a pullback of 0.89. iFR wire redirected to the Prox LAD. iFR spot of the Prox LAD = 0.84. IVUS catheter in over the iFR wire. IVUS of the LAD performed. IVUS catheter out OTW. Inflation number : 1 A AB TREK 3.50X15 RX BALLOON was prepped and advanced across the Prox LAD , then inflated to 8 WHITNEY for 0:07 seconds. Inflation number: 2 The AB TREK 3.50X15 RX BALLOON was reinflated across the Prox LAD, to 8 WHITNEY for 0:14 seconds. Balloon out. Inflation Number : 3 A MDT R CASSIE 3.5X18 MARY -Lot Number# [id number] Exp. was prepped and advanced across the Prox LAD. The stent was deployed at 12 WHITNEY for 0:16 seconds. Stent balloon out over wire. Inflation number : 4 A MDT NC EUPHORA RX [id number] BALLOON was prepped and advanced across the Prox LAD , then inflated to 16 WHITNEY for 0:16 seconds. Inflation number: 5 The MDT NC EUPHORA RX [id number] BALLOON was reinflated across the Prox LAD, to 20 WHITNEY for 0:11 seconds. Balloon out. IVUS catheter in over the iFR wire. IVUS of the LAD performed. IVUS catheter out OTW. ACT drawn. Results out of range HI. Will redraw. Runthrough guidewire was advanced through the guide catheter to lesion in the ostial Circ. IVUS catheter in over the Runthrough wire. IVUS of the CX performed. IVUS catheter out OTW. Inflation number : 1 A AB TREK 2.50X12 RX BALLOON was prepped and advanced across the Prox CX , then inflated to 8 WHITNEY for 0:05 seconds. Inflation number: 2 The AB TREK 2.50X12 RX BALLOON was reinflated across the Prox CX, to 8 WHITNEY for 0:17 seconds. Inflation number: 3 The AB TREK 2.50X12 RX BALLOON was reinflated across the Prox CX, to 8 WHITNEY for 0:11 seconds. Inflation number: 4 The AB TREK 2.50X12 RX BALLOON was reinflated across the Prox CX, to 10 WHITNEY for 0:11 seconds. Balloon out. Results checked. iFR wire redirected down the CX. iFR wire out. Runthrough wire out. Results checked. Guide catheter out over the exchange J wire. ACT drawn. Results 299 seconds. Therapeutic limits - pre-heparin administration 90-150 seconds and monitoring heparin during a vascular procedure >250 seconds. Physician scrubbed out. A TR Band was successful obtaining hemostatsis at the Right Radial artery insertion site. Post Procedure: Pulses reassessed and unchanged. PERRLA. Strong, equal hand marine engine mechanic bilaterally. No VTE prophylaxis required. Medication's Wasted: Lidocaine 1% = 18 mL. Medication's Wasted: Nitro = 49.5 mg. Medication's Wasted: Other = Fentanyl 50mcg. Total IV fluids: 600 mL. PCI Indication: CAD (without ischemic symptoms). Post-op diagnosis: iFR/IVUS of the ostial CX and Prox LAD with POBA to the ostial CX and MARY x 1 to the Prox LAD. Complications: none. Estimated blood loss: 5mL-10mL. Responsiveness - Normal response to verbal stimuli; alert and oriented, PERRLA. Airway - Unaffected, no intervention required; spontaneous ventilation. Circulation: W/N/L, pulses unchanged. Nausea/Vomiting: No. Procedure completed. Patient transferred by bed to CPRU. Patient transferred by wheelchair to ICU. Vital chart was stopped. Access Site Site: Right Radial artery Sheath Size: 6 Fr Hemostasis Method: TR Band Hemostasis Success: Successful Procedure Medications Start: 8:13 AM Stop: 8:13 AM Medication: 0.9% Saline Amount: 250 ml Route: I.V. bolus Start: 8:25 AM Stop: 8:25 AM Medication: Fentanyl Amount: 25 mcg Route: I.V. Start: 8:40 AM Stop: 8:40 AM Medication: Versed Amount: 1 mg Route: I.V. Start: 8:44 AM Stop: 8:44 AM Medication: Versed Amount: 1 mg Route: I.V. Start: 8:47 AM Stop: 8:47 AM Medication: 0.9% Saline Amount: 250 ml Route: I.V. bolus Start: 8:47 AM Stop: 8:47 AM Medication: Nitrogylcerin Amount: 200 mcg Route: I.A. Start: 8:50 AM Stop: 8:50 AM Medication: Heparin Amount: 5000 units Route: I.A. Start: 8:54 AM Stop: 8:54 AM Medication: Nitrogylcerin Amount: 100 mcg Route: I.A. Start: 8:56 AM Stop: 8:56 AM Medication: Fentanyl Amount: 25 mcg Route: I.V. Start: 9:03 AM Stop: 9:03 AM Medication: Versed Amount: 1 mg Route: I.V. Start: 9:04 AM Stop: 9:04 AM Medication: Fentanyl Amount: 25 mcg Route: I.V. Start: 9:07 AM Stop: 9:07 AM Medication: Heparin Amount: 1000 units Route: I.A. Start: 9:12 AM Stop: 9:12 AM Medication: Fentanyl Amount: 25 mcg Route: I.V. Start: 9:15 AM Stop: 9:15 AM Medication: Versed Amount: 1 mg Route: I.V. Start: 9:21 AM Stop: 9:21 AM Medication: Fentanyl Amount: 25 mcg Route: I.V. Start: 9:23 AM Stop: 9:23 AM Medication: Versed Amount: 1 mg Route: I.V. Start: 9:39 AM Stop: 9:39 AM Medication: Fentanyl Amount: 25 mcg Route: I.V. Start: 9:39 AM Stop: 9:39 AM Medication: Versed Amount: 1 mg Route: I.V. Start: 9:41 AM Stop: 9:41 AM Medication: Nitrogylcerin Amount: 200 mcg Route: I.A. I, the attending physician, have reviewed and verified all procedure medications. Yes, all medications given per verbal order History/Risk Factors Hypertension: No Dyslipidemia: No Peripheral Arterial Disease (PAD): No Myocardial Infarction (CO): No Obesity: No Renal Disease: No Tobacco Use: Former Prior Interventions PCI: Yes CABG: No Valve Surgery: No Date of PCI: 06/15/2024 Report Signatures Finalized by Sidney Alvarado MD on 01/26/2025 11:04 AM
[2025-01-26 08:36] LABS: Glucose Urine UA Negative (Normal); Nitrate Urine Negative (Negative); Specific Gravity, Urine 1.018 (1.005-1.030)
[2025-01-26 08:38] LABS: Add Urine Microscopic? YES
--- NOTE | 2025-01-26 08:40 | P.HPUD_ITS ---
Surgery/Procedure H&P Update DATE OF PROCEDURE: January 26, 2025 DATE H&P PERFORMED: 01/22/25 H&P UPDATE INFORMATION: I have reviewed H&P completed within last 30 days, I have examined patient prior to procedure and No changes to prior documentation PREOP DIAGNOSIS: Worsening angina/ Dyspnea on exertion PRIMARY INDICATION FOR PROCEDURE: Worsening angina/ Dyspnea on exertion PLANNED PROCEDURE: Operation Date: 01/26/25 08:30 Proposed Procedures p Cardiac Catheterization - [facility] w/wo LV & Coros(Left) - Sidney Alvarado M.D Possible percutaneous coronary intervention PATIENT REASSESSED PRIOR TO SEDATION, WITH NO CHANGE NOTED: Yes PHYSICAL EXAM: alert, oriented x 3, clear to auscultation bilaterally and regular rate & rhythm AIRWAY EVAL/ANESTHESIA PLAN: normal airway, ASA III, Local Anesthesia, Risks, benefits & alternatives of sedation and/or procedure discussed and Patient agrees to continue as planned ADDITIONAL INFORMATION: Moderate sedation
--- NOTE | 2025-01-26 11:00 | PC.NURSE ---
1030: Pt arrives to ICU from cath lab radiology technician. TR bands (2) inflated. 1100: Right hand purplish in color, radial pulse palpable. No bleeding or hematoma noted. Pt denies pain. Pt sitting up in bed eating her breakfast. Awaiting further orders from Physician.
--- NOTE | 2025-01-26 11:31 | PC.NURSE ---
Dr Alvarado notified about need for orders. He stated he will get them in.
--- NOTE | 2025-01-26 12:40 | PC.NURSE ---
Second ( lower) TR band released. Pt tolerating well.
--- NOTE | 2025-01-26 14:25 | PC.NURSE ---
LAst Tr band removed. NO bleeding or hematomas noted at site. There is bruising and site is tender per pt.
--- NOTE | 2025-01-26 19:18 | PC.NURSE ---
Shift summary: No issues throughout today. Her right wrist is bruised and tender. NO bleeding or hematomas noted. Sinus rhythm noted on monitor. VSS. Pt has ate her meals well. SHe has been out of bed 3 times to urinate. She had IVF at 745ml/hr as ordered. She has denied shortness of breath, chest pain and dizziness this shift.
[2025-01-27] VITALS (23 sets, daily range): BP systolic 114–136; BP diastolic 67–88; PULSE 56–72; RESP 13–26; TEMP 36.5–36.9; O2SAT 95–100
[2025-01-27 05:02] LABS: Hematocrit 31.3 % (36-47); Hemoglobin 10.40 g/dL (11.27-16.99); Mean Corpuscular HGB Conc 33.2 g/dL (30-55); Mean Corpuscular Hemoglobin 35.4 pg (27-33); Mean Corpuscular Volume 106.5 fl (85-98); Nucleated Red Blood Cells % 0 %; Platelet Count 153 10^3/cmm (157-399); Red Blood Count 2.94 10^6/uL (3.85-5.65); White Blood Count 5.23 10^3/uL (3.29-11.43)
[2025-01-27 05:33] LABS: Blood Urea Nitrogen 14 mg/dL (8-23); Calcium 8.3 mg/dL (8.5-10.5); Carbon Dioxide 19 mmol/L (22-29); Chloride 112 mmol/L (98-107); Creatinine Clr Calc Pharmacy 109.9734; Glucose 78 mg/dL (65-115); Osmolality Calculated 293 mOsm/kg (285-295); Sodium 142 mmol/L (136-145)
[2025-01-27 05:37] LABS: Anion Gap 14.9 (5-19); Potassium 3.9 mmol/L (3.5-5.1)
--- NOTE | 2025-01-27 08:27 | P.DS_ITS ---
<Statement entered by Sidney Alvarado M.D - 01/27/25 13:52> Patient was cared for in conjunction with an advanced practice practitioner.? I reviewed the chart and all pertinent data including imaging, telemetry, and laboratory results.? I discussed the patient in detail with the advanced practice practitioner.? Please see?their note for progress note, testing results and agreed upon plan of care for the patient. Discharge Providers Date of Admission: 01/26/25 10:37 Date of Discharge: January 27, 2025 Attending Provider at Admission: Sidney Alvarado M.D Attending Provider at Discharge: Sidney Alvarado M.D Primary Care Provider: SHARAD Tobar Reason for Visit Reason for Visit: I25.10 Brief History: Patient is a 59-year-old female who presented to the office several days ago with shortness of breath and chest tightness concerning for unstable angina, she had history of STEMI in 2023 and PCI of the mid LAD. Hospital Course Hospital Course She was brought in for coronary angiogram 01/26/2025, right radial approach finding luminal irregularity of the left main, proximal LAD 70 to 80% stenosis, ostial to proximal circumflex 60 to 70%, no disease in the RCA. She was treated with MARY x 1 to the proximal LAD, balloon angioplasty of the ostial left circumflex stenosis. Overnight she has not had any chest pain or pressure, no shortness of breath, no bleeding or hematoma of the right radial cath site. Blood pressure has been normotensive without any antihypertensive medications. She should continue aspirin and Plavix, as well as her home medication atorvastatin 40 mg daily. Plan to discharge home today, follow-up with cardiology clinic in 10 days. Physical Exam Const: COMMON NORMALS: no acute distress and patient oriented x3 GENERAL APPEARANCE: cooperative ORIENTATION/CONSCIOUSNESS: Yes awake, Yes oriented to person, Yes oriented to place and Yes oriented to time Chest: COMMONS NORMALS: normal inspection of the chest and normal palpation of entire chest wall CHEST: Yes Symmetrical chest wall rise Resp: COMMON NORMALS: normal respiratory effort, No retractions, No use of accessory muscles and clear to auscultation bilaterally AUSCULTATION: clear to auscultation bilaterally Cardio: COMMON NORMALS: regular rate, regular rhythm, S1 normal heart sound present, S2 normal heart sound present, No gallops present (Cardio), No clicks present (Cardio), No murmurs present (Cardio) and No rub (Cardio) RATE: regular rate RHYTHM: regular rhythm HEART SOUNDS: S1 normal heart sound present and S2 normal heart sound present PERIPHERAL PULSES: radial pulses present positive right 2+ and femoral pulses present positive right 2+ Neuro: COMMON NORMALS: patient oriented x3 and moves all extremities SENSORIUM/ORIENTATION: Yes oriented to person, Yes oriented to place and Yes oriented to time Skin: WOUNDS: Yes surgical site (no hematoma palpable) Details: no odor Discharge Data Studies Completed and Pending Completed Studies During Hospitalization Category Date Time Status DIRECTOR CLINICAL RESEARCH request for service Routine Exams 01/26/25 07:30 Completed Pending at discharge Category Date Time Status Urine Culture Stat Lab 01/26/25 07:55 Results Laboratory Results WBC 5.23 10^3/uL (3.29-11.43) 01/27/25 03:13 RBC 2.94 10^6/uL (3.85-5.65) L 01/27/25 03:13 Hgb 10.40 g/dL (11.27-16.99) L 01/27/25 03:13 Hct 31.3 % (36-47) L 01/27/25 03:13 MCV 106.5 fl (85-98) H 01/27/25 03:13 MCH 35.4 pg (27-33) H 01/27/25 03:13 MCHC 33.2 g/dL (30-55) 01/27/25 03:13 RDW 12.5 % (12.1-15.1) 01/27/25 03:13 Plt Count 153 10^3/cmm (157-399) L 01/27/25 03:13 MPV 10.5 fL (7.4-10.4) H 01/27/25 03:13 Neut % (Auto) 56.5 % 01/27/25 03:13 Lymph % (Auto) 29.1 % 01/27/25 03:13 [place] % (Auto) 8.4 % 01/27/25 03:13 Eos % (Auto) 5.0 % 01/27/25 03:13 Baso % (Auto) 0.8 % 01/27/25 03:13 Neut # (Auto) 2.96 10^3/uL (1.8-7.7) 01/27/25 03:13 Lymph # (Auto) 1.5 10^3/uL (0.8-4.8) 01/27/25 03:13 [place] # (Auto) 0.4 10^3/uL (0.2-0.9) 01/27/25 03:13 Eos # (Auto) 0.3 10^3/uL (0.0-0.8) 01/27/25 03:13 Baso # (Auto) 0.0 10^3/uL (0.0-0.1) 01/27/25 03:13 Nucleated RBC % (auto) 0 % 01/27/25 03:13 Nucleated RBCs # 0.0 /100WBC 01/27/25 03:13 Sodium 142 mmol/L (136-145) 01/27/25 03:13 Potassium 3.9 mmol/L (3.5-5.1) 01/27/25 03:13 Chloride 112 mmol/L (98-107) H 01/27/25 03:13 Carbon Dioxide 19 mmol/L (22-29) L 01/27/25 03:13 Anion Gap 14.9 (5-19) 01/27/25 03:13 BUN 14 mg/dL (8-23) 01/27/25 03:13 Creatinine 0.5 mg/dL (0.5-0.9) 01/27/25 03:13 GFR Calculation 125.9 mL/min (90-130) 01/27/25 03:13 Glucose 78 mg/dL (65-115) 01/27/25 03:13 POC Glucose 88 mg/dL (70-110) 01/27/25 06:15 Calculated Osmolality 293 mOsm/kg (285-295) 01/27/25 03:13 Calcium 8.3 mg/dL (8.5-10.5) L 01/27/25 03:13 Urine Color Yellow (Yellow) 01/26/25 07:55 Urine Appearance Clear (CLEAR) 01/26/25 07:55 Urine pH 6.0 (5-7) 01/26/25 07:55 Ur Specific [place] 1.018 (1.005-1.030) 01/26/25 07:55 Urine Protein Negative (Negative) 01/26/25 07:55 Urine Glucose (UA) Negative (Normal) 01/26/25 07:55 Urine Ketones Negative (Negative) 01/26/25 07:55 Urine Blood Negative (Negative) 01/26/25 07:55 Urine Nitrate Negative (Negative) 01/26/25 07:55 Urine Bilirubin Negative (Negative) 01/26/25 07:55 Urine Urobilinogen 1.0 mg/dL (Negative) 01/26/25 07:55 Ur Leukocyte Esterase 2+ (Negative) A 01/26/25 07:55 Urine RBC 0-2 /hpf (0-2) 01/26/25 07:55 Urine WBC 11-20 /hpf (0-5) H 01/26/25 07:55 Ur Squamous Epith Cells 0-5 /hpf (0-5) 01/26/25 07:55 Amorphous Sediment Not Reportable 01/26/25 07:55 Urine Bacteria None seen /hpf (NONE) 01/26/25 07:55 Hyaline Casts 0.40 /lpf 01/26/25 07:55 Vitals Last Vital Signs Temp 98.5 F 01/27/25 07:51 Pulse 60 01/27/25 06:05 Resp 15 01/27/25 04:00 BP 114/69 01/27/25 04:00 Pulse Ox 96 01/27/25 04:00 O2 Del Method Room Air 01/27/25 04:00 Discharge Plan Discharge Patient Disposition: Home Condition: Stable Prescriptions: Continued topiramate [Topamax] 50 mg tablet 50 mg PO BID bupropion HCl [Wellbutrin SR] 100 mg tablet sustained-release 12 hr 100 mg PO DAILY trazodone 100 mg tablet 100 mg PO DAILY celecoxib 200 mg capsule See Rx Instructions .ROUTE .COMPLEX Qty: 30 1RF Dose Instruction: TAKE ONE CAPSULE BY MOUTH DAILY Rx Instructions: TAKE ONE CAPSULE BY MOUTH DAILY (DME) Hinged Knee Brace, bilateral See Rx Instructions .Route .MEDSUPPLY Qty: 1 0RF Rx Instructions: As directed clopidogrel 75 mg tablet 75 mg PO DAILY Qty: 90 3RF atorvastatin [Lipitor] 40 mg tablet 40 mg PO DAILY Qty: 90 3RF fexofenadine [Roma Allergy] 180 mg Tablet 180 mg PO DAILY PRN (Reason: allergies) aspirin [Kourtney Low Dose Aspirin] 81 mg Tablet,Delayed Release (Dr/Ec) 81 mg PO DAILY ferrous sulfate [Iron (ferrous sulfate)] 325 mg (65 mg iron) Tablet 325 mg PO DAILY Women's 50 Plus Multivitamin 400 mcg-500 mg calcium-20 mcg Tablet 1 tab PO DAILY esomeprazole magnesium 20 mg capsule,delayed release(DR/EC) 20 mg PO DAILY PRN (Reason: allergies) Discharge Order = DC NOW: Discharge Order (Routine); Ordered 01/27/25 Ordered By: Melissa Escobar Referrals: Melissa Escobar FNP [Nurse Practitioner, Cardiology] - 7-10 days Bailey,SHARAD Peter [Primary Care Provider, Nurse Practitioner] - 1 week Discharge Diet: Cardiac Discharge Activity: Increase activity as tolerated Patient Instructions: Opioid Safety, Patient Portal & Jorge Instructions Activity Restrictions/Additional Instructions: No lifting over 5 pounds with right arm for 4 days. Print Language: Israeli Discharge Attestations Time Spent in Discharge Care*: less than 30 min Quality Metrics Clinical Quality Measures [ No reported AMI, CVA or VTE this stay] Coding Level of Care Code Acute Code for Isaccg Christianne
--- NOTE | 2025-01-27 09:55 | PC.NURSE ---
Patient discharged at 0955. Reviewed activity restrictions and appointment information. No new medications. IV removed before discharge. Patient signature form signed. Cath site to right wrist is unremarkable.
== END 2025-01-27 09:56 | disposition home or self-care (01) ==
LOC: ICU 10:40
PROVIDERS: Nurse Practitioner Family; Admitting Provider Internal Medicine; PCP Nurse Practitioner Family; Visit Provider Internal Medicine
DX: I25.119 Atherosclerotic heart disease of native coronary artery with unspecified angina pectoris (principal); Z79.82 Long term (current) use of aspirin; Z95.5 Presence of coronary angioplasty implant and graft; Z87.891 Personal history of nicotine dependence; Z86.74 Personal history of sudden cardiac arrest; F32.A Depression, unspecified; R56.9 Unspecified convulsions
CPT/HCPCS: 36415; 36416; 80048; 81001; 82962; 85025; 85347; 87086; 92920; 92978; 93454; 93571; 93572; 96374; 96376; 99152; 99153; C1725; C1753; C1769; C1874; C1887; C1894; C9600; G0378; J1644; J2250; J3010; J3490; J7030; J9999; Q0163; Q9967

== ENCOUNTER → 2025-01-29 15:24 | Outpatient (BNVA) | payer MEDICARE, SELFPAY | PROVIDERS: PCP Nurse Practitioner Family; Visit Provider Nurse Practitioner Family | DX: I25.10 Atherosclerotic heart disease of native coronary artery without angina pectoris (principal); Z09 Encounter for follow-up examination after completed treatment for conditions other than malignant neoplasm; Z79.02 Long term (current) use of antithrombotics/antiplatelets; Z79.82 Long term (current) use of aspirin; Z95.5 Presence of coronary angioplasty implant and graft; Z87.891 Personal history of nicotine dependence | CPT/HCPCS: 36415; 80048; 85025; 99213 ==

== ENCOUNTER 2025-03-03 11:11 | Emergency (ER) | payer MEDICARE, SELFPAY ==
[2025-03-03 11:12] VITALS: BP 131/78; PULSE 72; TEMP 36.9; O2SAT 99; BMI 24.0
--- NOTE | 2025-03-03 11:21 | XRR_ITS ---
PROCEDURE INFORMATION: Exam: XR Chest Exam date and time: 03/03/2025 11:55 AM Age: 60 years old Clinical indication: Shortness of breath; Additional info: SOB TECHNIQUE: Imaging protocol: Radiologic exam of the chest. Views: 1 view. COMPARISON: 1. CR XR chest 1V portable [id number] 01/20/2025 1:53 PM 2. CR XR chest 1V portable [id number] 07/10/2024 10:19 AM FINDINGS: Lungs: Unremarkable. No consolidation. Pleural spaces: Unremarkable. No pleural effusion. No pneumothorax. Heart/Mediastinum: A coronary artery stent is again noted. Bones/joints: There has been previous cervical spine surgery. No acute osseous abnormality. XR/XR chest 1V portable [id number] IMPRESSION: No acute findings.
[2025-03-03 12:02] LABS: Hematocrit 38.2 % (36-47); Hemoglobin 12.80 g/dL (11.27-16.99); Mean Corpuscular HGB Conc 33.5 g/dL (30-55); Mean Corpuscular Hemoglobin 34.9 pg (27-33); Mean Corpuscular Volume 104.1 fl (85-98); Nucleated Red Blood Cells % 0 %; Platelet Count 143 10^3/cmm (157-399); Red Blood Count 3.67 10^6/uL (3.85-5.65); White Blood Count 4.46 10^3/uL (3.29-11.43)
--- NOTE | 2025-03-03 12:07 | ECG_ITS ---
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 Measurements Intervals [place] Rate: 66 P: 66 ID: [id number] QRS: 48 QRSD: 81 T: 42 QT: 416 QTc: 436 Interpretive Statements SINUS RHYTHM Compared to ECG 01/20/2025 14:20:59 Sinus bradycardia no longer present Electronically Signed On 03-07-2025 08:55:27 CDT by Sidney Alvarado M.D. [id number]
--- NOTE | 2025-03-03 12:07 | W.ED.SOB ---
HPI - SOB/Dyspnea General: Chief Complaint: Shortness of Breath/Dyspnea Stated Complaint: sob, v/n Time Seen by Provider: 03/03/25 11:48 History of Present Illness: HPI Narrative: 60-year-old female no known history of coronary disease presents to the emergency room with complaints of sudden onset of shortness of breath. She was walking to the barn from her home this morning which she describes a rather short distance began to get very short of breath had to sit and catch her breath several times. That resolved completely she never had any chest discomfort. Patient had stents placed in June 2024 and then went back to the [employer] again in January 2025. At the repeat visit she had another stent placed in the LAD proximally. And a proximal circumflex lesion was treated with balloon no stents. Patient was discharged from that time with dual platelet therapy she is still taking it. She denies any chest discomfort now no hemoptysis no fever sweats or chills Associated symptoms: Deny abdominal pain, chest pain or fever(s) Related Data Home Medications ?Medication ?Instructions ?Recorded ?Confirmed bupropion HCl 100 mg tablet,12 hr 100 mg PO DAILY 12/02/20 01/29/25 sustained-release (Wellbutrin SR) topiramate 50 mg tablet (Topamax) 50 mg PO BID 12/02/20 01/29/25 vvonupbh-tge-vkper ac 400 1 tab PO DAILY 05/17/22 01/29/25 mcg-calcium carb 500 mg-vit K1 20 mcg tablet (Women's 50 Plus Multivitamin) trazodone 100 mg tablet 100 mg PO DAILY 06/02/24 01/29/25 aspirin 81 mg tablet,delayed 81 mg PO DAILY 07/10/24 01/29/25 release (Kourtney Low Dose Aspirin) ferrous sulfate 325 mg (65 mg 325 mg PO DAILY 07/10/24 01/29/25 iron) tablet (Iron (ferrous sulfate)) fexofenadine 180 mg tablet 180 mg PO DAILY PRN allergies 07/10/24 01/29/25 (Roma Allergy) esomeprazole magnesium 20 mg 20 mg PO DAILY PRN allergies 01/22/25 01/29/25 capsule,delayed release Previous Rx's ?Medication ?Instructions ?Recorded clopidogrel 75 mg tablet 75 mg PO DAILY #90 tabs 10/01/24 atorvastatin 40 mg tablet (Lipitor) 40 mg PO DAILY #90 tabs 10/02/24 Hinged Knee Brace, bilateral #1 ea 11/26/24 celecoxib 200 mg capsule See Rx Instructions .Route 01/07/25 .COMPLEX #30 caps isosorbide mononitrate 30 mg 30 mg PO DAILY #30 tabs 03/03/25 tablet,extended release 24 hr Allergies Allergy/AdvReac Type Severity Reaction Status Date / Time No Known Allergies Allergy Verified 03/03/25 11:24 Review of Systems Const: Denies: fever(s) or chills Card: Reports: dyspnea on exertion; Denies: chest pain Resp: Reports: dyspnea GI: Denies: abdominal pain : Denies: dysuria, urinary frequency or urinary urgency Musc: Denies: neck pain or back pain Skin/Breast: Denies: rash PFSH ED PFSH: Medical History Seizures Depression Insomnia Social History Smoking and tobacco/nicotine status: former use of tobacco/nicotine Quit status (tobacco/nicotine): has quit using Second hand smoke exposure: No Alcohol intake: current Alcohol intake frequency: 0-2 Drinks per Day Alcohol type: wine Substance/Drug Use: never Physical Exam Const: GENERAL APPEARANCE: cooperative ORIENTATION/CONSCIOUSNESS: Yes awake, Yes oriented to person, Yes oriented to place and Yes oriented to time HENMT: COMMON NORMALS: normocephalic, atraumatic and hearing grossly normal bilaterally HEAD & SCALP: normocephalic and atraumatic Resp: COMMON NORMALS: normal respiratory effort, No retractions, No use of accessory muscles and clear to auscultation bilaterally AUSCULTATION: clear to auscultation bilaterally Cardio: COMMON NORMALS: regular rate, regular rhythm and No murmurs present (Cardio) RATE: regular rate RHYTHM: regular rhythm GI: COMMON NORMALS: Soft to palpation and No hepatosplenomegaly present AUSCULTATION: Yes normoactive bowel sounds PALPATION: Yes Soft to palpation, No Tenderness to palpation present (GI), No Guarding due to palpation present (GI) and Yes No hepatosplenomegaly present Extremity: COMMON NORMALS: normal to inspection, capillary refill normal, no clubbing, cyanosis or edema, no calf tenderness and no pedal edema Neuro: SENSORIUM/ORIENTATION: Yes oriented to person, Yes oriented to place and Yes oriented to time Skin: COMMON NORMALS: no rashes or lesions noted GENERAL SKIN EXAM: no rashes or lesions noted Course Vital Signs: Vital signs: Vital Signs Temperature 98.4 F 03/03/25 11:12 Pulse Rate 70 03/03/25 14:50 Respiratory Rate 16 03/03/25 14:50 Blood Pressure 139/84 03/03/25 14:50 Pulse Oximetry 100 03/03/25 14:50 Oxygen Delivery Me thod Room Air 03/03/25 11:12 MDM - SOB/Dyspnea Medical Decision Making No acute EKG changes troponins trending undetectable in the 1st and 2nd hour tropes. Will discharge patient was reviewed the case with Dr. Alvarado he previously seen the patient was started isosorbide mononitrate added to have her follow-up with cardiology in the next week return if has further problems. Reviewed case with Dr. Alvarado was previously seen the patient Medical Records I reviewed the patient's medical records. Lab Data I reviewed the patient's lab results. 03/03/25 11:41 03/03/25 11:41 Labs/Radiology: Radiology Impressions Chest X-Ray 03/03/25 11:21 IMPRESSION: No acute findings. Laboratory Results WBC 4.46 10^3/uL (3.29-11.43) 03/03/25 11:41 RBC 3.67 10^6/uL (3.85-5.65) L 03/03/25 11:41 Hgb 12.80 g/dL (11.27-16.99) 03/03/25 11:41 Hct 38.2 % (36-47) 03/03/25 11:41 MCV 104.1 fl (85-98) H 03/03/25 11:41 MCH 34.9 pg (27-33) H 03/03/25 11:41 MCHC 33.5 g/dL (30-55) 03/03/25 11:41 RDW 12.4 % (12.1-15.1) 03/03/25 11:41 Plt Count 143 10^3/cmm (157-399) L 03/03/25 11:41 MPV 10.2 fL (7.4-10.4) 03/03/25 11:41 Neut % (Auto) 78.7 % 03/03/25 11:41 Lymph % (Auto) 8.1 % 03/03/25 11:41 [place] % (Auto) 10.3 % 03/03/25 11:41 Eos % (Auto) 1.8 % 03/03/25 11:41 Baso % (Auto) 0.9 % 03/03/25 11:41 Neut # (Auto) 3.51 10^3/uL (1.8-7.7) 03/03/25 11:41 Lymph # (Auto) 0.4 10^3/uL (0.8-4.8) L 03/03/25 11:41 [place] # (Auto) 0.5 10^3/uL (0.2-0.9) 03/03/25 11:41 Eos # (Auto) 0.1 10^3/uL (0.0-0.8) 03/03/25 11:41 Baso # (Auto) 0.0 10^3/uL (0.0-0.1) 03/03/25 11:41 Nucleated RBC % (auto) 0 % 03/03/25 11:41 Nucleated RBCs # 0.0 /100WBC 03/03/25 11:41 D-Dimer 0.32 ug/mLFEU (0-0.59) 03/03/25 11:41 Sodium 139 mmol/L (136-145) 03/03/25 11:41 Potassium 3.9 mmol/L (3.5-5.1) 03/03/25 11:41 Chloride 105 mmol/L (98-107) 03/03/25 11:41 Carbon Dioxide 21 mmol/L (22-29) L 03/03/25 11:41 Anion Gap 16.9 (5-19) 03/03/25 11:41 BUN 16 mg/dL (8-23) 03/03/25 11:41 Creatinine 0.7 mg/dL (0.5-0.9) 03/03/25 11:41 GFR Calculation 85.1 mL/min (90-130) L 03/03/25 11:41 Glucose 105 mg/dL (65-115) 03/03/25 11:41 Calculated Osmolality 290 mOsm/kg (285-295) 03/03/25 11:41 Calcium 9.2 mg/dL (8.5-10.5) 03/03/25 11:41 Total Bilirubin 0.6 mg/dL (0.15-1.2) 03/03/25 11:41 AST 43 U/L (0-32) H 03/03/25 11:41 ALT 27 U/L (0-33) 03/03/25 11:41 Alkaline Phosphatase 197 U/L (35-105) H 03/03/25 11:41 Troponin T Baseline < 6 ng/L (0-10) 03/03/25 11:41 Troponin T 120 Minute < 6.0 ng/L (0-10) 03/03/25 13:37 Delta Troponin T 0 ABS# (0-10) 03/03/25 13:37 NT-Pro-B Natriuret Pep 513 pg/mL (0-125) H 03/03/25 11:41 Total Protein 6.9 g/dL (6.6-8.7) 03/03/25 11:41 Albumin 4.4 g/dL (3.5-5.2) 03/03/25 11:41 Globulin 2.5 g/dL (1.3-4.6) 03/03/25 11:41 All radiology interpretation(s) finalized by discharge EKG Data EKG 1: Interpretation: EKG 1254 03/03/2025 sinus rhythm rate of 66 CA interval 157 QTc [address] changes noted. EKG compared to 01/20/2025. EKG 2: Interpretation: EKG 1424 03/03/2025 sinus rhythm rate of 72 CA interval 165 QTc [address] changes noted. EKG compared to 01/20/2025, an EKG done earlier today Discharge Plan Discharge Patient Disposition: Home Clinical Impression: Dyspnea on exertion, History of CAD (coronary artery disease) Condition: Stable Prescriptions: New isosorbide mononitrate 30 mg tablet extended release 24 hr 30 mg PO DAILY Qty: 30 0RF No Action topiramate [Topamax] 50 mg tablet 50 mg PO BID bupropion HCl [Wellbutrin SR] 100 mg tablet sustained-release 12 hr 100 mg PO DAILY trazodone 100 mg tablet 100 mg PO DAILY celecoxib 200 mg capsule See Rx Instructions .ROUTE .COMPLEX Qty: 30 1RF Dose Instruction: TAKE ONE CAPSULE BY MOUTH DAILY Rx Instructions: TAKE ONE CAPSULE BY MOUTH DAILY (DME) Hinged Knee Brace, bilateral See Rx Instructions .Route .MEDSUPPLY Qty: 1 0RF Rx Instructions: As directed clopidogrel 75 mg tablet 75 mg PO DAILY Qty: 90 3RF atorvastatin [Lipitor] 40 mg tablet 40 mg PO DAILY Qty: 90 3RF fexofenadine [Roma Allergy] 180 mg Tablet 180 mg PO DAILY PRN (Reason: allergies) aspirin [Kourtney Low Dose Aspirin] 81 mg Tablet,Delayed Release (Dr/Ec) 81 mg PO DAILY ferrous sulfate [Iron (ferrous sulfate)] 325 mg (65 mg iron) Tablet 325 mg PO DAILY Women's 50 Plus Multivitamin 400 mcg-500 mg calcium-20 mcg Tablet 1 tab PO DAILY esomeprazole magnesium 20 mg capsule,delayed release(DR/EC) 20 mg PO DAILY PRN (Reason: allergies) Discharge Orders: Discharge ED (Routine); Ordered 03/03/25 Ordered By: Jaden Stoner Referrals: Brittani Bailey FNP [Primary Care Provider, Nurse Practitioner] Patient Instructions: Opioid Safety, Pain Management, Patient Portal & Jorge Instructions Activity Restrictions/Additional Instructions: [facility] It is very important that you follow up as instructed or that you return to the Emergency Department should you have concerns or if your condition changes or worsens in any way. Follow-up with a post splitter within the next week Print Language: Uzbek Coding Level of Care Code ED Lead Accountant for Zoey Faust
[2025-03-03 12:33] LABS: Alanine Aminotransferase 27 U/L (0-33); Albumin Level 4.4 g/dL (3.5-5.2); Alkaline Phosphatase 197 U/L (35-105); Anion Gap 16.9 (5-19); Aspartate Amino Transferase 43 U/L (0-32); Blood Urea Nitrogen 16 mg/dL (8-23); Calcium 9.2 mg/dL (8.5-10.5); Carbon Dioxide 21 mmol/L (22-29); Chloride 105 mmol/L (98-107); Creatinine Clr Calc Pharmacy 77.5705; Globulin 2.5 g/dL (1.3-4.6); Glucose 105 mg/dL (65-115); NT Pro B Type Natriuretic Pept 513 pg/mL (0-125); Osmolality Calculated 290 mOsm/kg (285-295); Potassium 3.9 mmol/L (3.5-5.1); Sodium 139 mmol/L (136-145); Total Protein 6.9 g/dL (6.6-8.7)
[2025-03-03 12:50] LABS: Troponin(5th) Baseline < 6 ng/L (0-10)
[2025-03-03 14:01] LABS: Troponin 5 2HR < 6.0 ng/L (0-10); Troponin 5 2HR Delta 0 ABS# (0-10)
--- NOTE | 2025-03-03 14:24 | ECG_ITS ---
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 Measurements Intervals [place] Rate: 72 P: 74 [place]: 165 QRS: 47 QRSD: 82 T: 42 QT: 402 QTc: 442 Interpretive Statements SINUS RHYTHM Compared to ECG 03/03/2025 12:54:33 No significant changes Electronically Signed On 03-07-2025 08:55:16 CDT by Sidney Alvarado M.D. [email or web address]
[2025-03-03 14:35] VITALS: BP 139/84; PULSE 77; O2SAT 94
[2025-03-03 14:50] VITALS: BP 139/84; PULSE 70; RESP 16; O2SAT 100
== END 2025-03-03 14:51 | disposition home or self-care (01) ==
PROVIDERS: Emergency Medicine; Emergency Provider Family Medicine; PCP Nurse Practitioner Family
DX: R06.09 Other forms of dyspnea (principal); I25.10 Atherosclerotic heart disease of native coronary artery without angina pectoris; Z79.82 Long term (current) use of aspirin; Z79.02 Long term (current) use of antithrombotics/antiplatelets; Z87.891 Personal history of nicotine dependence
CPT/HCPCS: 36415; 71045; 80053; 83880; 84484; 85025; 85378; 93005; 99285

== ENCOUNTER 2025-06-10 13:17 | Outpatient (CLI) | payer MEDICARE, SELFPAY ==
--- NOTE | 2025-06-10 13:25 | MM_ITS ---
WS: [id number] BILATERAL 3D TOMOSYNTHESIS DIGITAL SCREENING MAMMOGRAPHY WITH CAD CLINICAL INFORMATION: SCREENING HISTORY: Screening mammogram. No current complaints. COMPARISON: 2022 TECHNIQUE: Bilateral CC and MLO views. FINDINGS: Scattered fibroglandular densities bilaterally. No suspicious focal mass, asymmetry, calcifications, or architectural distortion. No evidence of malignancy. MM/MM scr BI tomosynthesis [id number] IMPRESSION: DENSITY: There are scattered areas of fibroglandular density. BI-RADS: 2 - Benign. FOLLOW UP: 1 Year Follow-up Recommend return to annual screening mammography.
== END 2025-06-10 13:18 | disposition home or self-care (01) ==
LOC: RAD 13:19
PROVIDERS: PCP Nurse Practitioner Family; Visit Provider Nurse Practitioner Family
DX: I25.110 Atherosclerotic heart disease of native coronary artery with unstable angina pectoris (principal); E78.5 Hyperlipidemia, unspecified; U09.9 Post COVID-19 condition, unspecified; Z87.891 Personal history of nicotine dependence
CPT/HCPCS: 77063; 77067; 99213